=== PATIENT | female | born 1955 | race Caucasian/White ===

== ENCOUNTER 2017-12-23 18:44 | Emergency (ER) | payer BC ==
[~2017-12-23] VITALS: Ht 157.5 cm; Wt 77.1 kg
[2017-12-23 19:14] VITALS: BP 213/90
[2017-12-23] MEDS ORDERED: ONDANSETRON ODT 4 MG TAB.RAPDIS. PO ONE (19:15)
[2017-12-23] MEDS ORDERED: ONDA4TAB12 PO (20:39)
--- NOTE | 2017-12-23 20:40 | PHYS DOC ---
Past Medical History Past Medical History: Bipolar, Hypertension Past Surgical History: Other Additional Past Surgical Histo: left shoulder Alcohol Use: None Drug Use: None Adult General Chief Complaint Chief Complaint: UPPER EXTREMITY INJURY HPI HPI Patient is a 62 year old female who presents to the emergency room with complaints of right elbow pain. She states that she fell 9 days ago and was diagnosed with a fracture of the right elbow. She had a posterior long-arm splint in place however her removed it last night because of her hand swelling. Patient denies any new injury, states she would like the splint to be replaced. Pt complains of continuous nausea since this morning, denies abdominal pain, states that she vomited 4x earlier today. Review of Systems Review of Systems Constitutional: Denies fever or chills [] Giabd: reports nausea with vomiting x4 today, denies abdominal pain Musculoskeletal: R elbow pain with swelling in hand Integument: Denies rash or skin lesions [] Neurologic: Denies headache, focal weakness or sensory changes [] All other systems were reviewed and found to be within normal limits, except as documented in this note. Current Medications Current Medications Current Medications Medications (Trade) Dose Ordered Sig/Wilder Start Time Stop Time Status Last Admin Dose Admin Ondansetron HCl (Zofran Odt) 4 mg 1X ONCE 12/23/17 19:15 12/23/17 19:16 DC 12/23/17 19:15 4 MG Allergies Allergies Allergies Coded Allergies Type Severity Reaction Last Updated Verified No Known Drug Allergies 12/23/17 No Physical Exam Physical Exam Constitutional: Well developed, well nourished, no acute distress, non-toxic appearance. [] HENT: Normocephalic, atraumatic, bilateral external ears normal, oropharynx moist, no oral exudates, nose normal. [] Eyes: conjunctiva normal, no discharge. [] Skin: Warm, dry, no erythema, no rash. [] Extremities: No cyanosis, no clubbing, ROM intact, R elbow tenderness to palpation, pt bends R elbow with no problem, 1+ swelling to R elbow Neurologic: Alert and oriented X 3, normal motor function, normal sensory function, no focal deficits noted. [] Psychologic: Affect normal, judgement normal, mood normal. [] Current Patient Data Vital Signs Vital Signs Date Time Temp Pulse Resp B/P (MAP) Pulse Ox O2 Delivery O2 Flow Rate FiO2 10/11/18 19:14 97.1 86 22 213/90 (131) 97 Room Air 97.1 EKG EKG [] Radiology/Procedures Radiology/Procedures X-ray reveals fracture of right proximal radius, read by Dr. Munroe[] Course & Med Decision Making Course & Med Decision Making Pertinent Labs and Imaging studies reviewed. (See chart for details) Dx: fracture of right proximal radius Posterior long arm splint was applied to right arm, the placed in a sling. Pt was given a zofran in the ER, drank several glasses of water and sprite in the department with no vomiting. Prescription written for zofran. Follow up with Dr. David for further evaluation and treatment of your fracture. Tylenol or ibuprofen as needed for pain. Return to the ER if your symptoms worsen. Patient verbalized an understanding of home care, medications, follow-up, and return to ED instructions and was in agreement with the plan of care. [] Dragon Disclaimer Dragon Disclaimer This electronic medical record was generated, in whole or in part, using a voice recognition dictation system. Departure Departure Impression: Primary Impression: Fracture, radius, proximal Additional Impression: Nausea & vomiting Disposition: 01 HOME, SELF-CARE Condition: STABLE Referrals: JAYLA HERNANDEZ (PCP) Patient Instructions: Elbow Fracture, Simple Additional Instructions: Tylenol or ibuprofen as needed for pain. Fill prescription(s) and use as directed for nausea. Recommend application of ice, elevation, and rest of affected extremity. Wear the splint that was placed until follow up appointment with Dr. David, call in the morning for an appointment. Return to the ER if your symptoms worsen. Scripts Ondansetron (ONDANSETRON ODT) 4 Mg Tab.rapdis 1 TAB PO PRN Q6-8HRS, #16 TAB 0 Refills Prov: GERARD YAÑEZ Jacki LACER AND TIER 12/23/17 Splinting Splinting : Location: right arm Hand-Made Type: fiberglass Splint: posterior long arm Pre-Proc Neuro Vasc Exam: normal Post-Proc Neuro Vasc Exam: normal, unchanged from pre-exam Progress pt tolerated procedure well Attending Co-Sign Attending Co-Sign The patient was not seen by me. The [facility] chart was reviewed. I agree with the plan of care. Problem Qualifiers Primary Impression: Fracture, radius, proximal Encounter type: initial encounter Fracture type: closed Fracture morphology : unspecified fracture morphology Laterality: right Qualified Codes: S52.101A - Unspecified fracture of upper end of right radius, initial encounter for closed fracture Additional Impression: Nausea & vomiting Vomiting type: unspecified Vomiting Intractability: non-intractable Qualified Codes: R11.2 - Nausea with vomiting, unspecified GERARD YAÑEZ APRN Dec 23, 2017 20:40 ELAINE MUNROE MD Dec 25, 2017 14:56
--- NOTE | 2017-12-24 04:09 | RAD ---
Right elbow 3 views: Reason for examination: Mechanical fall today. Fell 9 days ago diagnosed with the fracture. There appears to be fracture of the radial head. No other site of fracture or dislocation is seen. No abnormal periosteal reaction is seen. There is joint effusion seen. IMPRESSION: Radial head fracture and joint effusion. Chest AP portable at 2343: The heart size is normal. Mediastinum is unremarkable. Lung kim show some mild prominence of the interstitial markings bilaterally. This may be related to positioning. No consolidative infiltrates or pleural effusions are evident. IMPRESSION: Mild prominence of the interstitial markings with no consolidated infiltrates or pleural effusions evident. This may be related to positioning. Recommend clinical correlation and follow-up. Electronically signed by: Ashly Moffett MD (12/24/2017 4:06 AM) [facility]
[2017-12-24] MEDS ORDERED: METO50TA6 PO (13:13)
[2017-12-24] MEDS ORDERED: CHOL500016 PO (13:13)
[2017-12-24] MEDS ORDERED: OXYC5CAP PO (13:13)
[2017-12-24] MEDS ORDERED: OMEG1CAP6 PO (13:13)
[2017-12-24] MEDS ORDERED: IBUP-1007 PO (13:13)
[2017-12-24] MEDS ORDERED: ZOLP5TAB5 PO (13:13)
[2017-12-24] MEDS ORDERED: CLON0.1T PO (13:13)
[2017-12-24] MEDS ORDERED: CLON0.5T11 PO (13:13)
[2017-12-24] MEDS ORDERED: POLY255P PO (13:13)
[2017-12-24] MEDS ORDERED: DULO30CA2 PO (13:13)
[2017-12-24] MEDS ORDERED: FLUT16SP NS (13:13)
[2017-12-24] MEDS ORDERED: ACET325T9 PO (13:13)
[2017-12-24] MEDS ORDERED: PROM25TA10 PO (13:13)
== END 2017-12-23 20:49 | disposition home or self-care (01) ==
LOC: ER 18:44
DX: S52.121A Displaced fracture of head of right radius, initial encounter for closed fracture (principal); R11.2 Nausea with vomiting, unspecified; F31.9 Bipolar disorder, unspecified; I10 Essential (primary) hypertension; W18.39XA Other fall on same level, initial encounter; Y93.89 Activity, other specified; Y92.89 Other specified places as the place of occurrence of the external cause; Y99.8 Other external cause status
CPT/HCPCS: 99284; Q0162; 29105; 73080

== ENCOUNTER 2017-12-23 23:06 | Inpatient (IN) | payer BC ==
[~2017-12-23] VITALS: Ht 167.6 cm; Wt 79.4 kg
[~2017-12-23 23:06] MED LIST: ONDA4TAB12 PO
--- NOTE | 2017-12-23 23:17 | PHYS DOC ---
Past Medical History Past Medical History: Bipolar, Hypertension Past Surgical History: Other Additional Past Surgical Histo: left shoulder Alcohol Use: None Drug Use: None Adult General Chief Complaint Chief Complaint: SEIZURE HPI HPI Patient is a 62 year old female who presents with seizure Patient was seen her earlier at [facility] for splint application to her right elbow. She had taken off her splint voluntarily and wanted in replaced. She has a right elbow fracture post fall 9 days ago. After splint application and discharge, while waiting in the lobby she had a seizure. She was brought back to room 1 for further evaluation. She is currently postictal. Review of Systems Review of Systems Patient non verbal unable to provide ROS Constitutional: Denies fever or chills [] Eyes: Denies change in visual acuity, redness, or eye pain [] HENT: Denies nasal congestion or sore throat [] Respiratory: Denies cough or shortness of breath [] Cardiovascular: No additional information not addressed in HPI [] GI: Denies abdominal pain, nausea, vomiting, bloody stools or diarrhea [] : Denies dysuria or hematuria [] Musculoskeletal: Denies back pain or joint pain [] Integument: Denies rash or skin lesions [] Neurologic: Denies headache, focal weakness or sensory changes [] Endocrine: Denies polyuria or polydipsia [] All other systems were reviewed and found to be within normal limits, except as documented in this note. Current Medications Current Medications Current Medications Medications (Trade) Dose Ordered Sig/Wilder Start Time Stop Time Status Last Admin Dose Admin Levetiracetam 1000 mg/Dextrose 110 ml @ 440 mls/hr 1X ONCE 12/23/17 23:45 12/23/17 23:59 DC 12/23/17 23:45 440 MLS/HR Lorazepam (Ativan) 1 mg 1X ONCE 12/23/17 23:45 12/23/17 23:46 DC 12/23/17 23:45 1 MG Potassium Chloride/Sodium Chloride 1,000 ml @ 75 mls/hr 1X ONCE 12/24/17 01:00 12/24/17 14:19 DC 12/24/17 01:00 75 MLS/HR Sodium Chloride 500 ml @ 50 mls/hr 1X ONCE 12/24/17 00:30 12/24/17 10:29 UNV Allergies Allergies Allergies Coded Allergies Type Severity Reaction Last Updated Verified No Known Drug Allergies 12/23/17 No Physical Exam Physical Exam Constitutional: Well developed, well nourished, nonverbal, postictal, non-toxic appearance. With sonorous breathing HENT: Normocephalic, atraumatic, bilateral external ears normal, oropharynx moist, no oral exudates, nose normal. Eyes: PERRLA, with conjugate gaze, conjunctiva normal, no discharge. Neck: Normal range of motion, no tenderness, supple, no stridor. Cardiovascular:Heart rate regular rhythm, no murmur Lungs & Thorax: Bilateral breath sounds clear to auscultation Abdomen: Bowel sounds normal, soft, no tenderness, no masses, no pulsatile masses. Skin: Warm, dry, no erythema, no rash. Back: No ecchymosis, deformity or swelling appreciated. Extremities: No tenderness, no cyanosis, no clubbing, ROM intact, no edema. Neurologic: Somnolent, moves all extremities, no focal deficits noted. No facial droop. Current Patient Data Vital Signs Vital Signs Date Time Temp Pulse Resp B/P (MAP) Pulse Ox O2 Delivery O2 Flow Rate FiO2 12/24/17 01:05 86 17 94 12/23/17 23:06 97.7 236/102 (146) Room Air 97.7 Lab Values Laboratory Tests Test 12/23/17 23:10 12/23/17 23:27 12/23/17 23:30 12/24/17 01:00 Glucose (Fingerstick) 168 mg/dL (70-99) H Urine Collection Type U cath Urine Color Yellow Urine Clarity Clear Urine pH 6.5 Urine Specific [place] 1.020 Urine Protein >=300 mg/dL (NEG-TRACE) Urine Glucose (UA) 100 mg/dL (NEG) Urine Ketones (Stick) >=80 mg/dL (NEG) Urine Blood Large (NEG) Urine Nitrite Negative (NEG) Urine Bilirubin Negative (NEG) Urine Urobilinogen Dipstick 0.2 mg/dL (0.2 mg/dL) Urine Leukocyte Esterase Negative (NEG) Urine RBC 6-10 /HPF (0-2) Urine WBC 1-4 /HPF (0-4) Urine Squamous Epithelial Cells Few /LPF Urine Bacteria 0 /HPF (0-FEW) Urine Opiates Screen Pos (NEG) Urine Methadone Screen Neg (NEG) Urine Barbiturates Neg (NEG) Urine Phencyclidine Screen Neg (NEG) Urine Amphetamine/Methamphetamine Neg (NEG) Urine Benzodiazepines Screen Neg (NEG) Urine Cocaine Screen Neg (NEG) Urine Cannabinoids Screen Neg (NEG) Urine Ethyl Alcohol Neg (NEG) White Blood Count 19.9 x10^3/uL (4.0-11.0) H Red Blood Count 5.07 x10^6/uL (3.50-5.40) Hemoglobin 15.5 g/dL (12.0-15.5) Hematocrit 43.3 % (36.0-47.0) Mean Corpuscular Volume 85 fL (79-100) Mean Corpuscular Hemoglobin 31 pg (25-35) Mean Corpuscular Hemoglobin Concent 36 g/dL (31-37) Red Cell Distribution Width 12.8 % (11.5-14.5) Platelet Count 463 x10^3/uL (140-400) H Neutrophils (%) (Auto) 79 % (31-73) H Lymphocytes (%) (Auto) 12 % (24-48) L Monocytes (%) (Auto) 8 % (0-9) Eosinophils (%) (Auto) 0 % (0-3) Basophils (%) (Auto) 0 % (0-3) Neutrophils # (Auto) 15.7 x10^3uL (1.8-7.7) H Lymphocytes # (Auto) 2.5 x10^3/uL (1.0-4.8) Monocytes # (Auto) 1.7 x10^3/uL (0.0-1.1) H Eosinophils # (Auto) 0.0 x10^3/uL (0.0-0.7) Basophils # (Auto) 0.1 x10^3/uL (0.0-0.2) Segmented Neutrophils % 81 % (35-66) H Lymphocytes % 9 % (24-48) L Monocytes % 10 % (0-10) Platelet Estimate Increased (ADEQUATE) Sodium Level 108 mmol/L (136-145) *L Potassium Level 2.6 mmol/L (3.5-5.1) *L Chloride Level 69 mmol/L (98-107) L Carbon Dioxide Level 21 mmol/L (21-32) Anion Gap 18 (6-14) H Blood Urea Nitrogen 7 mg/dL (7-20) Creatinine 1.0 mg/dL (0.6-1.0) Estimated GFR (Cockcroft-Gault) 55.8 BUN/Creatinine Ratio 7 (6-20) Glucose Level 164 mg/dL (70-99) H Calcium Level 8.8 mg/dL (8.5-10.1) Total Bilirubin 1.2 mg/dL (0.2-1.0) H Aspartate Amino Transferase (AST) 98 U/L (15-37) H Alanine Aminotransferase (ALT) 80 U/L (14-59) H Alkaline Phosphatase 152 U/L (46-116) H Creatine Kinase 2797 U/L (26-192) H Troponin I Quantitative < 0.017 ng/mL (0.000-0.055) Total Protein 7.7 g/dL (6.4-8.2) Albumin 4.1 g/dL (3.4-5.0) Albumin/Globulin Ratio 1.1 (1.0-1.7) Salicylates Level < 2.8 mg/dL (2.8-20.0) L Salicylate Last Dose Date Unknown Salicylate Last Dose Time Unknown Acetaminophen Level < 2 mcg/ml (10-30) L Acetaminophen Last Dose Date Unknown Acetaminophen Last Dose Time Unknown Gila Level 1.1 mmol/L (0.6-1.2) Gila Last Dose Date 12/23/17 Gila Last Dose Time 0000 Ethyl Alcohol Level < 10 mg/dL (0-10) Thyroid Stimulating Hormone (TSH) 1.571 uIU/mL (0.358-3.74) Cortisol AM Sample 70.0 ug/dL (4.3-22.4) H Laboratory Tests 12/23/17 23:30 Laboratory Tests 12/23/17 23:30 EKG EKG ECG 23:50 NSR @ [address]-T wave changes suggestive of ischemia. Radiology/Procedures Radiology/Procedures [facility] [address] [place], [place] [id number] IMAGING REPORT Signed PATIENT: NIKITA WHEELER ACCOUNT: [id number] : 1955 LOCATION: [facility] ICU AGE: 62 SEX: F EXAM STATUS: ADM IN ORD. PHYSICIAN: ELAINE QUINN MD REASON: seizure PROCEDURE: CHEST AP ONLY Right elbow 3 views: Reason for examination: Mechanical fall today. Fell 9 days ago diagnosed with the fracture. There appears to be fracture of the radial head. No other site of fracture or dislocation is seen. No abnormal periosteal reaction is seen. There is joint effusion seen. IMPRESSION: Radial head fracture and joint effusion. Chest AP portable at 2343: The heart size is normal. Mediastinum is unremarkable. Lung kim show some mild prominence of the interstitial markings bilaterally. This may be related to positioning. No consolidative infiltrates or pleural effusions are evident. IMPRESSION: Mild prominence of the interstitial markings with no consolidated infiltrates or pleural effusions evident. This may be related to positioning. Recommend clinical correlation and follow-up. Electronically signed by: Sarwat Elizalde MD (12/24/2017 4:06 AM) [facility] [place] [place] DICTATED and SIGNED BY: SARWAT ELIZALDE MD DATE: 12/24/17 0402 [facility] [address] [place] [address] IMAGING REPORT Signed PATIENT: NIKITA WHEELER ACCOUNT: [id number] : 1955 LOCATION: ER AGE: 62 SEX: F EXAM STATUS: REG ER ORD. PHYSICIAN: ELAINE QUINN MD REASON: seizure PROCEDURE: CT HEAD WO CONTRAST CT head without contrast: Reason for examination: Seizures. Unresponsive. Axial images were obtained through the brain. No contrast was administered. Exposure: One or more of the following individualized dose reduction techniques were utilized for this examination: 1. Automated exposure control 2. Adjustment of the mA and/or kV according to patient size 3. Use of iterative reconstruction technique. Ventricular systems are symmetric and not abnormally dilated. No midline shift is seen. There is no evidence of intracranial hemorrhage, infarct, mass or edema. No abnormalities are seen at the orbits. The paranasal sinuses show no mucosal disease. Mastoid air cells are clear. No acute abnormality seen in the skull. IMPRESSION: No acute intracranial abnormalities evident. Electronically signed by: Sarwat Elizalde MD (12/24/2017 12:37 AM) [facility] [place] DICTATED and SIGNED BY: SARWAT ELIZALDE MD DATE: 12/24/17 0035 Course & Med Decision Making Course & Med Decision Making Pertinent Labs and Imaging studies reviewed. (See chart for details) Emergency Department Course Patient presents with seizure, hyponatremia DDx-Seizure, intoxication, CVA, metabolic derangement, infection, syncope, SIADH , Diabetes insipidus, psychohenic polydipsia The patient had witness seizure in the ED lobby. Patient had been seen by PA and had replacement right elbow splint applied. As per nursing staff the patient was drinking copious amount of water and was anxious appearing prior to seizure. Patient was brought to room 1 postictal and had recurrent seizure witness by me. Patient had immediate left EJ IV access placed and was given Ativan 2mg by me with seizure abating. Patient was given Keppra 1000mg IV load, noting 2 witnessed seizures in the ED. Head CT henry was unremarkable. ECG and troponin showed no evidence of ACS. Labs remarkable for severe hyponatremia with hypokalemia. Lab was repeated and verified hyponatremia and hypokalemia. Patient was started on hypertonic saline and potassium replacement. 01:[address] Christianson who agreed with admission. Dragon Disclaimer Dragon Disclaimer This electronic medical record was generated, in whole or in part, using a voice recognition dictation system. Additional Procedures Progress 23:00 Left EJ placement Site prepped with chlorhexidine. Left IJ was cannulated with a 20-gauge IV cannula without any difficulty. Patient over the procedure well. Labs were drawn. IV therapy was started. 03:00 Right EJ Placement Prepped with chlorhexidine Right EJ cannulated with a 20-gauge IV without difficulty blood cultures are drawn lactic acid was drawn. Departure Departure Impression: Primary Impression: Seizure Additional Impressions: Hyponatremia Hypokalemia Rhabdomyolysis Disposition: ADMITTED INPATIENT Admitting Physician: Kenyon Harrell Condition: STABLE Referrals: JAYLA HERNANDEZ (PCP) Critical Care Note Total Time (mins): 60 Comments Critical care time spent on bed side management of recurrent seizures and correction of hyponatremia and hypokalemia. Problems: (1) Hypokalemia (2) Hyponatremia (3) Rhabdomyolysis (4) Seizure Critical Care Time Critical care time was 60 minutes exclusive of procedures. Problem Qualifiers ELAINE QUINN MD Dec 23, 2017 23:17
[2017-12-23] MEDS ORDERED: levETIRAcetam 1,000 MG in IV DEXTROSE 5% 100ML 100 ML IV ONE (23:45)
[2017-12-23 23:49] LABS: BILIRUBIN,URINE NEGATIVE (NEG); CLARITY,URINE CLEAR; COLOR,URINE YELLOW; NITRITE,URINE NEGATIVE (NEG); PH,URINE 6.5; PROTEIN,URINE >=300 mg/dL (NEG-TRACE); UROBILINOGEN,URINE 0.2 mg/dL (0.2 mg/dL)
[2017-12-23 23:53] LABS: BASO # 0.1 x10^3/uL (0.0-0.2); BASO % 0 % (0-3); EOS % 0 % (0-3); HEMATOCRIT 43.3 % (36.0-47.0); HEMOGLOBIN 15.5 g/dL (12.0-15.5); LYMPH # 2.5 x10^3/uL (1.0-4.8); LYMPH % 12 % (24-48); MEAN CORPUSCULAR HEMOGLOBIN 31 pg (25-35); MEAN CORPUSCULAR HGB CONC 36 g/dL (31-37); MEAN CORPUSCULAR VOLUME 85 fL (79-100); MONO # 1.7 x10^3/uL (0.0-1.1); MONO % 8 % (0-9); NEUT # 15.7 x10^3uL (1.8-7.7); NEUT % 79 % (31-73); PLATELET COUNT 463 x10^3/uL (140-400); RED BLOOD COUNT 5.07 x10^6/uL (3.50-5.40); RED CELL DISTRIBUTION WIDTH 12.8 % (11.5-14.5); WHITE BLOOD COUNT 19.9 x10^3/uL (4.0-11.0)
[2017-12-23 23:56] LABS: AMPHETAMINE/METHAMPHETAMINE NEG (NEG); BARBITURATES NEG (NEG); BENZODIAZEPINES NEG (NEG); CANNABINOIDS NEG (NEG); COCAINE NEG (NEG); METHADONE NEG (NEG); OPIATES POS (NEG); PHENCYCLIDINE NEG (NEG)
[2017-12-24] VITALS (21 sets, daily range): BP systolic 99–142; BP diastolic 42–86
[2017-12-24 00:09] LABS: BACTERIA,URINE 0 /HPF (0-FEW); SQUAMOUS EPITHELIAL CELL,UR FEW /LPF
[2017-12-24 00:12] LABS: ALBUMIN 4.1 g/dL (3.4-5.0); ALBUMIN/GLOBULIN RATIO 1.1 (1.0-1.7); CALCIUM 8.8 mg/dL (8.5-10.1); GFR 55.8; TOTAL BILIRUBIN 1.2 mg/dL (0.2-1.0); TOTAL PROTEIN 7.7 g/dL (6.4-8.2)
[2017-12-24 00:18] LABS: SALIC < 2.8 mg/dL (2.8-20.0)
[2017-12-24 00:19] LABS: ACETAMIN < 2 mcg/ml (10-30); ETHANOL < 10 mg/dL (0-10)
[2017-12-24 00:21] LABS: POTASSIUM 2.6 mmol/L (3.5-5.1)
[2017-12-24] MEDS ORDERED: SODIUM CHLORIDE 3 % 500 ML IV STA (00:21)
[2017-12-24] MEDS ORDERED: SODIUM CHLORIDE 3 % 500 ML IV ONE ×4 (00:30→04:00)
--- NOTE | 2017-12-24 00:40 | RAD ---
CT head without contrast: Reason for examination: Seizures. Unresponsive. Axial images were obtained through the brain. No contrast was administered. Exposure: One or more of the following individualized dose reduction techniques were utilized for this examination: 1. Automated exposure control 2. Adjustment of the mA and/or kV according to patient size 3. Use of iterative reconstruction technique. Ventricular systems are symmetric and not abnormally dilated. No midline shift is seen. There is no evidence of intracranial hemorrhage, infarct, mass or edema. No abnormalities are seen at the orbits. The paranasal sinuses show no mucosal disease. Mastoid air cells are clear. No acute abnormality seen in the skull. IMPRESSION: No acute intracranial abnormalities evident. Electronically signed by: Ashly Moffett MD (12/24/2017 12:37 AM) [facility]
[2017-12-24] MEDS ORDERED: POTASSIUM CL 40MEQ IN 0.9%NACL 1,000 ML IV ONE (01:00)
[2017-12-24 03:19] LABS: CREATININE ISTAT 0.5 mg/dL (0.5-1.4); HEMOGLOBIN ISTAT 12.9 g/dL (12-15); ION CA ISTAT 1.02 mmol/L (1.13-1.32); POTASSIUM ISTAT 3.1 mmol/L (3.5-5.0)
[2017-12-24 03:19] LABS: CALCIUM 8.5 mg/dL (8.5-10.1); CREATININE 0.4 mg/dL (0.6-1.0); GFR 160.7
[2017-12-24 03:27] LABS: POTASSIUM 2.8 mmol/L (3.5-5.1)
--- NOTE | 2017-12-24 04:09 | RAD ---
Right elbow 3 views: Reason for examination: Mechanical fall today. Fell 9 days ago diagnosed with the fracture. There appears to be fracture of the radial head. No other site of fracture or dislocation is seen. No abnormal periosteal reaction is seen. There is joint effusion seen. IMPRESSION: Radial head fracture and joint effusion. Chest AP portable at 2343: The heart size is normal. Mediastinum is unremarkable. Lung kim show some mild prominence of the interstitial markings bilaterally. This may be related to positioning. No consolidative infiltrates or pleural effusions are evident. IMPRESSION: Mild prominence of the interstitial markings with no consolidated infiltrates or pleural effusions evident. This may be related to positioning. Recommend clinical correlation and follow-up. Electronically signed by: Ashly Moffett MD (12/24/2017 4:06 AM) [facility]
[2017-12-24 05:33] LABS: % LYMPHS 9 % (24-48); % MONOS 10 % (0-10); % SEGS 81 % (35-66); PLT ESTIMATE INCREASED (ADEQUATE)
[2017-12-24 06:37] LABS: LI 1.1 mmol/L (0.6-1.2)
--- NOTE | 2017-12-24 08:20 | EKG ---
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
[2017-12-24 09:24] LABS: BASO % 0 % (0-3); EOS % 0 % (0-3); HEMATOCRIT 38.3 % (36.0-47.0); HEMOGLOBIN 13.6 g/dL (12.0-15.5); LYMPH # 0.7 x10^3/uL (1.0-4.8); LYMPH % 5 % (24-48); MEAN CORPUSCULAR HEMOGLOBIN 30 pg (25-35); MEAN CORPUSCULAR HGB CONC 36 g/dL (31-37); MEAN CORPUSCULAR VOLUME 85 fL (79-100); MONO # 1.4 x10^3/uL (0.0-1.1); MONO % 10 % (0-9); NEUT # 12.1 x10^3uL (1.8-7.7); NEUT % 85 % (31-73); PLATELET COUNT 307 x10^3/uL (140-400); RED CELL DISTRIBUTION WIDTH 12.9 % (11.5-14.5); WHITE BLOOD COUNT 14.3 x10^3/uL (4.0-11.0)
[2017-12-24 09:36] LABS: CALCIUM 8.5 mg/dL (8.5-10.1); CREATININE 0.5 mg/dL (0.6-1.0); GFR 124.2; POTASSIUM 3.1 mmol/L (3.5-5.1)
[2017-12-24 09:40] LABS: MAGNESIUM 1.9 mg/dL (1.8-2.4); PHOSPHORUS 2.6 mg/dL (2.6-4.7)
[2017-12-24] MEDS ORDERED: ONDANSETRON ODT 4 MG TAB.RAPDIS. PO PRN (09:45)
[2017-12-24] MEDS ORDERED: ACETAMINOPHEN 500 MG TABLET PO PRN (09:45)
--- NOTE | 2017-12-24 10:11 | PDOC2 ---
NEUROLOGY CONSULT Date of Admission Date of Admission DATE: 12/24/17 TIME: 10:06 Reason for Consult Reason for Consult: Seizure Referring Physician Referring Physician: Dr. Gonzales Source Source: Chart review, Patient History of Present Illness History of Present Illness The patient is a 62-year-old right-handed female who was in the emergency room yesterday to get her right elbow fracture reset. She left and had a seizure in the waiting area. She wass found to have severe hyponatremia. 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 She does have psychiatric disorder. She denies any prior history of stroke, seizure, or head injury. Past Medical History Cardiovascular: HTN Psych: Bipolar Past Surgical History Past Surgical History: Other (Left shoulder) Family History Family History: No pertinent hx ( negative for seizures) Social History Social History , no alcohol or tobacco Current Medications Current Medications Current Medications Lorazepam (Ativan) 2 mg STK-MED ONCE .ROUTE ; Start 12/23/17 at 23:16; Stop at 23:17; Status DC Lorazepam (Ativan) 1 mg 1X ONCE IV Last administered on 12/23/17at 23:45; Start 12/23/17 at 23:45; Stop 12/23/17 at 23:46; Status DC Levetiracetam 1000 mg/Dextrose 110 ml @ 440 mls/hr 1X ONCE IV Last administered on 12/23/17at 23:45; Start 12/23/17 at 23:45; Stop 12/23/17 at 23 :59; Status DC Sodium Chloride 500 ml @ 30 mls/hr 1X ONCE IV Last administered on at 01:00; Start 12/24/17 at 01:00; Stop 12/24/17 at 17:39 Sodium Chloride 500 ml @ 30 mls/hr 1X STAT IV ; Start 12/24/17 at 00:21; Stop 12/24/17 at 17:00; Status UNV Sodium Chloride 500 ml @ 50 mls/hr 1X ONCE IV ; Start 12/24/17 at 00:30; Stop 12/24/17 at 10:29; Status UNV Potassium Chloride/Sodium Chloride 1,000 ml @ 75 mls/hr 1X ONCE IV Last administered on 12/24/17at 01:00; Start 12/24/17 at 01:00; Stop 12/24/17 at 14 :19 Sodium Chloride 500 ml @ 30 mls/hr 1X ONCE IV Last administered on at 04:00; Start 12/24/17 at 04:00; Stop 12/24/17 at 20:39 Sodium Chloride 500 ml @ 50 mls/hr 1X ONCE IV ; Start 12/24/17 at 03:45; Stop 12/24/17 at 13:44; Status UNV Acetaminophen (Tylenol) 500 mg PRN Q6HRS PRN PO MILD PAIN / TEMP; Start at 09:45 Ondansetron HCl (Zofran) 4 mg PRN Q6HRS PRN IV NAUSEA/VOMITING; Start at 09:45 Ondansetron HCl (Zofran Odt) 4 mg PRN Q6HRS PRN PO NAUSEA/VOMITING; Start 03/01 at 09:45 Lorazepam (Ativan) 2 mg PRN Q4HRS PRN IV sz; Start 12/24/17 at 09:45 Active Scripts Active Ondansetron Odt (Ondansetron) 4 Mg Tab.rapdis 1 Tab PO PRN Q6-8HRS Allergies Allergies: Coded Allergies: No Known Drug Allergies (Unverified , 12/23/17) ROS Review of System Negative for fevers, chills, weight loss, shortness of breath, chest pain, indigestion, hematochezia, melena, dysuria. Full 14-point review systems is negative. Physical Exam Physical Examination General: Well-developed, well-nourished, White female, in no acute distress HEENT: Normocephalic andatraumatic. Temporal arteriespulsatile and nontender. Neck: Supple without bruit, no meningismus Musculoskeletal: Stability:see neurologic. Gait exam:see neurologic. Tone:see neurologic. Strength:see neurologic. Neurological: Mental Status:intact, orientation, memory, attention span/concentration, language, fund of knowledge: she is Carlos, arouses easily, knows location, season, year. Cranial Nerves:Pupils equal and reactive to light, extraocular movements areintact, visual kim are full to confrontation. Facial sensation is normal. There is no facial asymmetry. Vestibulo-ocular reflex is intact. Palate elvates and tongue protrudes in midline. All other cranial related problems are negative except as mentioned before.Reflexes:2+ and symmetric with flexor plantar responses. Motor:left shoulder sling, right elbow cast, 5/ 5 otherwise. Coordination:Finger-nose finger and [id number] testing are normal. Rapid alternating movements and fine finger movements are intact. Gait: not tested. Sensory:Normal pinprick, vibration, light touch, proprioception. Vitals VITALS Vital Signs Date Time Temp Pulse Resp B/P (MAP) Pulse Ox O2 Delivery O2 Flow Rate FiO2 12/24/17 08:00 Nasal Cannula 4.0 12/24/17 08:00 97.5 74 20 109/49 (69) 97 97.5 Labs Labs Laboratory Tests Test 12/23/17 23:10 12/23/17 23:27 12/23/17 23:30 12/24/17 01:00 Glucose (Fingerstick) 168 mg/dL (70-99) Urine Collection Type U cath Urine Color Yellow Urine Clarity Clear Urine pH 6.5 Urine Specific Romance 1.020 Urine Protein >=300 mg/dL (NEG-TRACE) Urine Glucose (UA) 100 mg/dL (NEG) Urine Ketones (Stick) >=80 mg/dL (NEG) Urine Blood Large (NEG) Urine Nitrite Negative (NEG) Urine Bilirubin Negative (NEG) Urine Urobilinogen Dipstick 0.2 mg/dL (0.2 mg/dL) Urine Leukocyte Esterase Negative (NEG) Urine RBC 6-10 /HPF (0-2) Urine WBC 1-4 /HPF (0-4) Urine Squamous Epithelial Cells Few /LPF Urine Bacteria 0 /HPF (0-FEW) Urine Opiates Screen Pos (NEG) Urine Methadone Screen Neg (NEG) Urine Barbiturates Neg (NEG) Urine Phencyclidine Screen Neg (NEG) Urine Amphetamine/Methamphetamine Neg (NEG) Urine Benzodiazepines Screen Neg (NEG) Urine Cocaine Screen Neg (NEG) Urine Cannabinoids Screen Neg (NEG) Urine Ethyl Alcohol Neg (NEG) White Blood Count 19.9 x10^3/uL (4.0-11.0) Red Blood Count 5.07 x10^6/uL (3.50-5.40) Hemoglobin 15.5 g/dL (12.0-15.5) Hematocrit 43.3 % (36.0-47.0) Mean Corpuscular Volume 85 fL (79-100) Mean Corpuscular Hemoglobin 31 pg (25-35) Mean Corpuscular Hemoglobin Concent 36 g/dL (31-37) Red Cell Distribution Width 12.8 % (11.5-14.5) Platelet Count 463 x10^3/uL (140-400) Neutrophils (%) (Auto) 79 % (31-73) Lymphocytes (%) (Auto) 12 % (24-48) Monocytes (%) (Auto) 8 % (0-9) Eosinophils (%) (Auto) 0 % (0-3) Basophils (%) (Auto) 0 % (0-3) Neutrophils # (Auto) 15.7 x10^3uL (1.8-7.7) Lymphocytes # (Auto) 2.5 x10^3/uL (1.0-4.8) Monocytes # (Auto) 1.7 x10^3/uL (0.0-1.1) Eosinophils # (Auto) 0.0 x10^3/uL (0.0-0.7) Basophils # (Auto) 0.1 x10^3/uL (0.0-0.2) Segmented Neutrophils % 81 % (35-66) Lymphocytes % 9 % (24-48) Monocytes % 10 % (0-10) Platelet Estimate Increased (ADEQUATE) Sodium Level 108 mmol/L (136-145) Potassium Level 2.6 mmol/L (3.5-5.1) Chloride Level 69 mmol/L (98-107) Carbon Dioxide Level 21 mmol/L (21-32) Anion Gap 18 (6-14) Blood Urea Nitrogen 7 mg/dL (7-20) Creatinine 1.0 mg/dL (0.6-1.0) Estimated GFR (Cockcroft-Gault) 55.8 BUN/Creatinine Ratio 7 (6-20) Glucose Level 164 mg/dL (70-99) Calcium Level 8.8 mg/dL (8.5-10.1) Total Bilirubin 1.2 mg/dL (0.2-1.0) Aspartate Amino Transf (AST/SGOT) 98 U/L (15-37) Alanine Aminotransferase (ALT/SGPT) 80 U/L (14-59) Alkaline Phosphatase 152 U/L (46-116) Creatine Kinase 2797 U/L (26-192) Troponin I Quantitative < 0.017 ng/mL (0.000-0.055) Total Protein 7.7 g/dL (6.4-8.2) Albumin 4.1 g/dL (3.4-5.0) Albumin/Globulin Ratio 1.1 (1.0-1.7) Salicylates Level < 2.8 mg/dL (2.8-20.0) Salicylate Last Dose Date Unknown Salicylate Last Dose Time Unknown Acetaminophen Level < 2 mcg/ml (10-30) Acetaminophen Last Dose Date Unknown Acetaminophen Last Dose Time Unknown Buxton Level 1.1 mmol/L (0.6-1.2) Buxton Last Dose Date 12/23/17 Buxton Last Dose Time 0000 Ethyl Alcohol Level < 10 mg/dL (0-10) Thyroid Stimulating Hormone (TSH) 1.571 uIU/mL (0.358-3.74) Cortisol AM Sample 70.0 ug/dL (4.3-22.4) Test 12/24/17 01:30 12/24/17 03:10 12/24/17 03:14 12/24/17 09:10 Sodium Level 104 mmol/L (136-145) 124 mmol/L (136-145) Potassium Level 2.8 mmol/L (3.5-5.1) 3.1 mmol/L (3.5-5.1) Chloride Level 72 mmol/L (98-107) 87 mmol/L (98-107) Carbon Dioxide Level 20 mmol/L (21-32) 28 mmol/L (21-32) Anion Gap 12 (6-14) 15 mmol/L (6-14) 9 (6-14) Blood Urea Nitrogen 7 mg/dL (7-20) 5 mg/dL (7-20) Creatinine 0.4 mg/dL (0.6-1.0) 0.5 mg/dL (0.6-1.0) Estimated GFR (Cockcroft-Gault) 160.7 124.2 Glucose Level 167 mg/dL (70-99) 127 mg/dL (70-99) 102 mg/dL (70-99) Calcium Level 8.5 mg/dL (8.5-10.1) 8.5 mg/dL (8.5-10.1) Lactic Acid Level 0.9 mmol/L (0.4-2.0) Bedside Hemoglobin 12.9 g/dL (12-15) Bedside Hematocrit 38 % (36-40) Bedside Sodium 107 mmol/L (135-145) Bedside Potassium 3.1 mmol/L (3.5-5.0) Bedside Chloride 69 mmol/L (98-110) Bedside Total CO2 27 mmol/L (23-32) Bedside Blood Urea Nitrogen 5 mg/dL (8-26) Bedside Creatinine 0.5 mg/dL (0.5-1.4) Bedside Ionized Calcium (Santos) 1.02 mmol/L (1.13-1.32) White Blood Count 14.3 x10^3/uL (4.0-11.0) Red Blood Count 4.50 x10^6/uL (3.50-5.40) Hemoglobin 13.6 g/dL (12.0-15.5) Hematocrit 38.3 % (36.0-47.0) Mean Corpuscular Volume 85 fL (79-100) Mean Corpuscular Hemoglobin 30 pg (25-35) Mean Corpuscular Hemoglobin Concent 36 g/dL (31-37) Red Cell Distribution Width 12.9 % (11.5-14.5) Platelet Count 307 x10^3/uL (140-400) Neutrophils (%) (Auto) 85 % (31-73) Lymphocytes (%) (Auto) 5 % (24-48) Monocytes (%) (Auto) 10 % (0-9) Eosinophils (%) (Auto) 0 % (0-3) Basophils (%) (Auto) 0 % (0-3) Neutrophils # (Auto) 12.1 x10^3uL (1.8-7.7) Lymphocytes # (Auto) 0.7 x10^3/uL (1.0-4.8) Monocytes # (Auto) 1.4 x10^3/uL (0.0-1.1) Eosinophils # (Auto) 0.0 x10^3/uL (0.0-0.7) Basophils # (Auto) 0.0 x10^3/uL (0.0-0.2) Phosphorus Level 2.6 mg/dL (2.6-4.7) Magnesium Level 1.9 mg/dL (1.8-2.4) Laboratory Tests Test 12/23/17 23:10 12/23/17 23:27 12/23/17 23:30 12/24/17 01:00 Glucose (Fingerstick) 168 mg/dL (70-99) Urine Collection Type U cath Urine Color Yellow Urine Clarity Clear Urine pH 6.5 Urine Specific Romance 1.020 Urine Protein >=300 mg/dL (NEG-TRACE) Urine Glucose (UA) 100 mg/dL (NEG) Urine Ketones (Stick) >=80 mg/dL (NEG) Urine Blood Large (NEG) Urine Nitrite Negative (NEG) Urine Bilirubin Negative (NEG) Urine Urobilinogen Dipstick 0.2 mg/dL (0.2 mg/dL) Urine Leukocyte Esterase Negative (NEG) Urine RBC 6-10 /HPF (0-2) Urine WBC 1-4 /HPF (0-4) Urine Squamous Epithelial Cells Few /LPF Urine Bacteria 0 /HPF (0-FEW) Urine Opiates Screen Pos (NEG) Urine Methadone Screen Neg (NEG) Urine Barbiturates Neg (NEG) Urine Phencyclidine Screen Neg (NEG) Urine Amphetamine/Methamphetamine Neg (NEG) Urine Benzodiazepines Screen Neg (NEG) Urine Cocaine Screen Neg (NEG) Urine Cannabinoids Screen Neg (NEG) Urine Ethyl Alcohol Neg (NEG) White Blood Count 19.9 x10^3/uL (4.0-11.0) Red Blood Count 5.07 x10^6/uL (3.50-5.40) Hemoglobin 15.5 g/dL (12.0-15.5) Hematocrit 43.3 % (36.0-47.0) Mean Corpuscular Volume 85 fL (79-100) Mean Corpuscular Hemoglobin 31 pg (25-35) Mean Corpuscular Hemoglobin Concent 36 g/dL (31-37) Red Cell Distribution Width 12.8 % (11.5-14.5) Platelet Count 463 x10^3/uL (140-400) Neutrophils (%) (Auto) 79 % (31-73) Lymphocytes (%) (Auto) 12 % (24-48) Monocytes (%) (Auto) 8 % (0-9) Eosinophils (%) (Auto) 0 % (0-3) Basophils (%) (Auto) 0 % (0-3) Neutrophils # (Auto) 15.7 x10^3uL (1.8-7.7) Lymphocytes # (Auto) 2.5 x10^3/uL (1.0-4.8) Monocytes # (Auto) 1.7 x10^3/uL (0.0-1.1) Eosinophils # (Auto) 0.0 x10^3/uL (0.0-0.7) Basophils # (Auto) 0.1 x10^3/uL (0.0-0.2) Segmented Neutrophils % 81 % (35-66) Lymphocytes % 9 % (24-48) Monocytes % 10 % (0-10) Platelet Estimate Increased (ADEQUATE) Sodium Level 108 mmol/L (136-145) Potassium Level 2.6 mmol/L (3.5-5.1) Chloride Level 69 mmol/L (98-107) Carbon Dioxide Level 21 mmol/L (21-32) Anion Gap 18 (6-14) Blood Urea Nitrogen 7 mg/dL (7-20) Creatinine 1.0 mg/dL (0.6-1.0) Estimated GFR (Cockcroft-Gault) 55.8 BUN/Creatinine Ratio 7 (6-20) Glucose Level 164 mg/dL (70-99) Calcium Level 8.8 mg/dL (8.5-10.1) Total Bilirubin 1.2 mg/dL (0.2-1.0) Aspartate Amino Transf (AST/SGOT) 98 U/L (15-37) Alanine Aminotransferase (ALT/SGPT) 80 U/L (14-59) Alkaline Phosphatase 152 U/L (46-116) Creatine Kinase 2797 U/L (26-192) Troponin I Quantitative < 0.017 ng/mL (0.000-0.055) Total Protein 7.7 g/dL (6.4-8.2) Albumin 4.1 g/dL (3.4-5.0) Albumin/Globulin Ratio 1.1 (1.0-1.7) Salicylates Level < 2.8 mg/dL (2.8-20.0) Salicylate Last Dose Date Unknown Salicylate Last Dose Time Unknown Acetaminophen Level < 2 mcg/ml (10-30) Acetaminophen Last Dose Date Unknown Acetaminophen Last Dose Time Unknown Buxton Level 1.1 mmol/L (0.6-1.2) Buxton Last Dose Date 12/23/17 Buxton Last Dose Time 0000 Ethyl Alcohol Level < 10 mg/dL (0-10) Thyroid Stimulating Hormone (TSH) 1.571 uIU/mL (0.358-3.74) Cortisol AM Sample 70.0 ug/dL (4.3-22.4) Test 12/24/17 01:30 12/24/17 03:10 12/24/17 03:14 12/24/17 09:10 Sodium Level 104 mmol/L (136-145) 124 mmol/L (136-145) Potassium Level 2.8 mmol/L (3.5-5.1) 3.1 mmol/L (3.5-5.1) Chloride Level 72 mmol/L (98-107) 87 mmol/L (98-107) Carbon Dioxide Level 20 mmol/L (21-32) 28 mmol/L (21-32) Anion Gap 12 (6-14) 15 mmol/L (6-14) 9 (6-14) Blood Urea Nitrogen 7 mg/dL (7-20) 5 mg/dL (7-20) Creatinine 0.4 mg/dL (0.6-1.0) 0.5 mg/dL (0.6-1.0) Estimated GFR (Cockcroft-Gault) 160.7 124.2 Glucose Level 167 mg/dL (70-99) 127 mg/dL (70-99) 102 mg/dL (70-99) Calcium Level 8.5 mg/dL (8.5-10.1) 8.5 mg/dL (8.5-10.1) Lactic Acid Level 0.9 mmol/L (0.4-2.0) Bedside Hemoglobin 12.9 g/dL (12-15) Bedside Hematocrit 38 % (36-40) Bedside Sodium 107 mmol/L (135-145) Bedside Potassium 3.1 mmol/L (3.5-5.0) Bedside Chloride 69 mmol/L (98-110) Bedside Total CO2 27 mmol/L (23-32) Bedside Blood Urea Nitrogen 5 mg/dL (8-26) Bedside Creatinine 0.5 mg/dL (0.5-1.4) Bedside Ionized Calcium (Santos) 1.02 mmol/L (1.13-1.32) White Blood Count 14.3 x10^3/uL (4.0-11.0) Red Blood Count 4.50 x10^6/uL (3.50-5.40) Hemoglobin 13.6 g/dL (12.0-15.5) Hematocrit 38.3 % (36.0-47.0) Mean Corpuscular Volume 85 fL (79-100) Mean Corpuscular Hemoglobin 30 pg (25-35) Mean Corpuscular Hemoglobin Concent 36 g/dL (31-37) Red Cell Distribution Width 12.9 % (11.5-14.5) Platelet Count 307 x10^3/uL (140-400) Neutrophils (%) (Auto) 85 % (31-73) Lymphocytes (%) (Auto) 5 % (24-48) Monocytes (%) (Auto) 10 % (0-9) Eosinophils (%) (Auto) 0 % (0-3) Basophils (%) (Auto) 0 % (0-3) Neutrophils # (Auto) 12.1 x10^3uL (1.8-7.7) Lymphocytes # (Auto) 0.7 x10^3/uL (1.0-4.8) Monocytes # (Auto) 1.4 x10^3/uL (0.0-1.1) Eosinophils # (Auto) 0.0 x10^3/uL (0.0-0.7) Basophils # (Auto) 0.0 x10^3/uL (0.0-0.2) Phosphorus Level 2.6 mg/dL (2.6-4.7) Magnesium Level 1.9 mg/dL (1.8-2.4) Images Images CT head: Ventricular systems are symmetric and not abnormally dilated. No midline shift is seen. There is no evidence of intracranial hemorrhage, infarct, mass or edema. No abnormalities are seen at the orbits. The paranasal sinuses show no mucosal disease. Mastoid air cells are clear. No acute abnormality seen in the skull. IMPRESSION: No acute intracranial abnormalities evident. Assessment/Plan Assessment/Plan Impression: Seizure due to severe hyponatremia. Recommendations: I am holding on additional workup such as MRI and EEG given obvious provocative factor of the hyponatremia. I am also holding off on anticonvulsants. Renal service is managing the hyponatremia. I counseled the patient not to drink large amounts of water. Thank you for letting me help the patient's care. JONAH MACIEL MD Dec 24, 2017 10:11
--- NOTE | 2017-12-24 11:18 | PDOC2 ---
CONSULT Date of Consult Date of Consult DATE: 12/24/17 TIME: 11:13 Reason for Consult Reason for Consult: LOW NA Referring Physician Referring Physician: ESTEPHANIE Identification/Chief Complaint Chief Complaint SEIZURE Source Source: Chart review History of Present Illness Reason for Visit: THIS IS A 62 YR WITH FALL, ELBOW FX AND THEN RECENTLY A SEIZURE. NA OF 104 ON ADMIT AND NOW UP TO 124 WITH 3% SALINE. PT REMAINS CONFUSED. K LOW AT 3.1. PER NOTES PT HAS HX OF PSYCHOGENIC POLYDIPSIA. NOT ON ANY DIURETICS. HEMODYNAMICALLY STABLE. NO THYROID HX Past Medical History Cardiovascular: HTN Psych: Bipolar Past Surgical History Past Surgical History: Other (Left shoulder) Current Problem List Problem List Problems Medical Problems: (1) Hypokalemia Status: Acute (2) Hyponatremia Status: Acute (3) Rhabdomyolysis Status: Acute (4) Seizure Status: Acute Current Medications Current Medications Current Medications Lorazepam (Ativan) 2 mg STK-MED ONCE .ROUTE ; Start 12/23/17 at 23:16; Stop at 23:17; Status DC Lorazepam (Ativan) 1 mg 1X ONCE IV Last administered on 12/23/17at 23:45; Start 12/23/17 at 23:45; Stop 12/23/17 at 23:46; Status DC Levetiracetam 1000 mg/Dextrose 110 ml @ 440 mls/hr 1X ONCE IV Last administered on 12/23/17at 23:45; Start 12/23/17 at 23:45; Stop 12/23/17 at 23 :59; Status DC Sodium Chloride 500 ml @ 30 mls/hr 1X ONCE IV Last administered on at 01:00; Start 12/24/17 at 01:00; Stop 12/24/17 at 17:39 Sodium Chloride 500 ml @ 30 mls/hr 1X STAT IV ; Start 12/24/17 at 00:21; Stop 12/24/17 at 17:00; Status UNV Sodium Chloride 500 ml @ 50 mls/hr 1X ONCE IV ; Start 12/24/17 at 00:30; Stop 12/24/17 at 10:29; Status UNV Potassium Chloride/Sodium Chloride 1,000 ml @ 75 mls/hr 1X ONCE IV Last administered on 12/24/17at 01:00; Start 12/24/17 at 01:00; Stop 12/24/17 at 14 :19 Sodium Chloride 500 ml @ 30 mls/hr 1X ONCE IV Last administered on at 04:00; Start 12/24/17 at 04:00; Stop 12/24/17 at 20:39 Sodium Chloride 500 ml @ 50 mls/hr 1X ONCE IV ; Start 12/24/17 at 03:45; Stop 12/24/17 at 13:44; Status UNV Acetaminophen (Tylenol) 500 mg PRN Q6HRS PRN PO MILD PAIN / TEMP; Start at 09:45 Ondansetron HCl (Zofran) 4 mg PRN Q6HRS PRN IV NAUSEA/VOMITING; Start at 09:45 Ondansetron HCl (Zofran Odt) 4 mg PRN Q6HRS PRN PO NAUSEA/VOMITING; Start 03/01 at 09:45 Lorazepam (Ativan) 2 mg PRN Q4HRS PRN IV sz; Start 12/24/17 at 09:45 Active Scripts Active Ondansetron Odt (Ondansetron) 4 Mg Tab.rapdis 1 Tab PO PRN Q6-8HRS Allergies Allergies: Coded Allergies: No Known Drug Allergies (Unverified , 12/23/17) ROS Review of System UNABLE TO OBTAIN Physical Exam General: Cooperative, No acute distress HEENT: Atraumatic, PERRLA Lungs: Clear to auscultation Heart: Regular rate, Normal S1, Normal S2 Abdomen: Normal bowel sounds, Soft, No tenderness Extremities: No clubbing, No cyanosis, No edema, Normal pulses Skin: No rashes, No breakdown Neuro: Other (CONFUSED) Psych/Mental Status: Other (CONFUSED) MUSCULOSKELETAL: No joint tenderness, No deformity Vitals VITALS Vital Signs Date Time Temp Pulse Resp B/P (MAP) Pulse Ox O2 Delivery O2 Flow Rate FiO2 12/24/17 10:00 75 20 109/57 (74) 95 Room Air 12/24/17 08:00 4.0 12/24/17 08:00 97.5 97.5 Labs Labs Laboratory Tests Test 12/23/17 23:10 12/23/17 23:27 12/23/17 23:30 12/24/17 01:00 Glucose (Fingerstick) 168 mg/dL (70-99) Urine Collection Type U cath Urine Color Yellow Urine Clarity Clear Urine pH 6.5 Urine Specific [place] 1.020 Urine Protein >=300 mg/dL (NEG-TRACE) Urine Glucose (UA) 100 mg/dL (NEG) Urine Ketones (Stick) >=80 mg/dL (NEG) Urine Blood Large (NEG) Urine Nitrite Negative (NEG) Urine Bilirubin Negative (NEG) Urine Urobilinogen Dipstick 0.2 mg/dL (0.2 mg/dL) Urine Leukocyte Esterase Negative (NEG) Urine RBC 6-10 /HPF (0-2) Urine WBC 1-4 /HPF (0-4) Urine Squamous Epithelial Cells Few /LPF Urine Bacteria 0 /HPF (0-FEW) Urine Opiates Screen Pos (NEG) Urine Methadone Screen Neg (NEG) Urine Barbiturates Neg (NEG) Urine Phencyclidine Screen Neg (NEG) Urine Amphetamine/Methamphetamine Neg (NEG) Urine Benzodiazepines Screen Neg (NEG) Urine Cocaine Screen Neg (NEG) Urine Cannabinoids Screen Neg (NEG) Urine Ethyl Alcohol Neg (NEG) White Blood Count 19.9 x10^3/uL (4.0-11.0) Red Blood Count 5.07 x10^6/uL (3.50-5.40) Hemoglobin 15.5 g/dL (12.0-15.5) Hematocrit 43.3 % (36.0-47.0) Mean Corpuscular Volume 85 fL (79-100) Mean Corpuscular Hemoglobin 31 pg (25-35) Mean Corpuscular Hemoglobin Concent 36 g/dL (31-37) Red Cell Distribution Width 12.8 % (11.5-14.5) Platelet Count 463 x10^3/uL (140-400) Neutrophils (%) (Auto) 79 % (31-73) Lymphocytes (%) (Auto) 12 % (24-48) Monocytes (%) (Auto) 8 % (0-9) Eosinophils (%) (Auto) 0 % (0-3) Basophils (%) (Auto) 0 % (0-3) Neutrophils # (Auto) 15.7 x10^3uL (1.8-7.7) Lymphocytes # (Auto) 2.5 x10^3/uL (1.0-4.8) Monocytes # (Auto) 1.7 x10^3/uL (0.0-1.1) Eosinophils # (Auto) 0.0 x10^3/uL (0.0-0.7) Basophils # (Auto) 0.1 x10^3/uL (0.0-0.2) Segmented Neutrophils % 81 % (35-66) Lymphocytes % 9 % (24-48) Monocytes % 10 % (0-10) Platelet Estimate Increased (ADEQUATE) Sodium Level 108 mmol/L (136-145) Potassium Level 2.6 mmol/L (3.5-5.1) Chloride Level 69 mmol/L (98-107) Carbon Dioxide Level 21 mmol/L (21-32) Anion Gap 18 (6-14) Blood Urea Nitrogen 7 mg/dL (7-20) Creatinine 1.0 mg/dL (0.6-1.0) Estimated GFR (Cockcroft-Gault) 55.8 BUN/Creatinine Ratio 7 (6-20) Glucose Level 164 mg/dL (70-99) Calcium Level 8.8 mg/dL (8.5-10.1) Total Bilirubin 1.2 mg/dL (0.2-1.0) Aspartate Amino Transf (AST/SGOT) 98 U/L (15-37) Alanine Aminotransferase (ALT/SGPT) 80 U/L (14-59) Alkaline Phosphatase 152 U/L (46-116) Creatine Kinase 2797 U/L (26-192) Troponin I Quantitative < 0.017 ng/mL (0.000-0.055) Total Protein 7.7 g/dL (6.4-8.2) Albumin 4.1 g/dL (3.4-5.0) Albumin/Globulin Ratio 1.1 (1.0-1.7) Salicylates Level < 2.8 mg/dL (2.8-20.0) Salicylate Last Dose Date Unknown Salicylate Last Dose Time Unknown Acetaminophen Level < 2 mcg/ml (10-30) Acetaminophen Last Dose Date Unknown Acetaminophen Last Dose Time Unknown [place] Level 1.1 mmol/L (0.6-1.2) [place] Last Dose Date 12/23/17 [place] Last Dose Time 0000 Ethyl Alcohol Level < 10 mg/dL (0-10) Thyroid Stimulating Hormone (TSH) 1.571 uIU/mL (0.358-3.74) Cortisol AM Sample 70.0 ug/dL (4.3-22.4) Test 12/24/17 01:30 12/24/17 03:10 12/24/17 03:14 12/24/17 09:10 Sodium Level 104 mmol/L (136-145) 124 mmol/L (136-145) Potassium Level 2.8 mmol/L (3.5-5.1) 3.1 mmol/L (3.5-5.1) Chloride Level 72 mmol/L (98-107) 87 mmol/L (98-107) Carbon Dioxide Level 20 mmol/L (21-32) 28 mmol/L (21-32) Anion Gap 12 (6-14) 15 mmol/L (6-14) 9 (6-14) Blood Urea Nitrogen 7 mg/dL (7-20) 5 mg/dL (7-20) Creatinine 0.4 mg/dL (0.6-1.0) 0.5 mg/dL (0.6-1.0) Estimated GFR (Cockcroft-Gault) 160.7 124.2 Glucose Level 167 mg/dL (70-99) 127 mg/dL (70-99) 102 mg/dL (70-99) Calcium Level 8.5 mg/dL (8.5-10.1) 8.5 mg/dL (8.5-10.1) Lactic Acid Level 0.9 mmol/L (0.4-2.0) Bedside Hemoglobin 12.9 g/dL (12-15) Bedside Hematocrit 38 % (36-40) Bedside Sodium 107 mmol/L (135-145) Bedside Potassium 3.1 mmol/L (3.5-5.0) Bedside Chloride 69 mmol/L (98-110) Bedside Total CO2 27 mmol/L (23-32) Bedside Blood Urea Nitrogen 5 mg/dL (8-26) Bedside Creatinine 0.5 mg/dL (0.5-1.4) Bedside Ionized Calcium (Santos) 1.02 mmol/L (1.13-1.32) White Blood Count 14.3 x10^3/uL (4.0-11.0) Red Blood Count 4.50 x10^6/uL (3.50-5.40) Hemoglobin 13.6 g/dL (12.0-15.5) Hematocrit 38.3 % (36.0-47.0) Mean Corpuscular Volume 85 fL (79-100) Mean Corpuscular Hemoglobin 30 pg (25-35) Mean Corpuscular Hemoglobin Concent 36 g/dL (31-37) Red Cell Distribution Width 12.9 % (11.5-14.5) Platelet Count 307 x10^3/uL (140-400) Neutrophils (%) (Auto) 85 % (31-73) Lymphocytes (%) (Auto) 5 % (24-48) Monocytes (%) (Auto) 10 % (0-9) Eosinophils (%) (Auto) 0 % (0-3) Basophils (%) (Auto) 0 % (0-3) Neutrophils # (Auto) 12.1 x10^3uL (1.8-7.7) Lymphocytes # (Auto) 0.7 x10^3/uL (1.0-4.8) Monocytes # (Auto) 1.4 x10^3/uL (0.0-1.1) Eosinophils # (Auto) 0.0 x10^3/uL (0.0-0.7) Basophils # (Auto) 0.0 x10^3/uL (0.0-0.2) Phosphorus Level 2.6 mg/dL (2.6-4.7) Magnesium Level 1.9 mg/dL (1.8-2.4) Laboratory Tests Test 12/23/17 23:10 12/23/17 23:27 12/23/17 23:30 12/24/17 01:00 Glucose (Fingerstick) 168 mg/dL (70-99) Urine Collection Type U cath Urine Color Yellow Urine Clarity Clear Urine pH 6.5 Urine Specific [place] 1.020 Urine Protein >=300 mg/dL (NEG-TRACE) Urine Glucose (UA) 100 mg/dL (NEG) Urine Ketones (Stick) >=80 mg/dL (NEG) Urine Blood Large (NEG) Urine Nitrite Negative (NEG) Urine Bilirubin Negative (NEG) Urine Urobilinogen Dipstick 0.2 mg/dL (0.2 mg/dL) Urine Leukocyte Esterase Negative (NEG) Urine RBC 6-10 /HPF (0-2) Urine WBC 1-4 /HPF (0-4) Urine Squamous Epithelial Cells Few /LPF Urine Bacteria 0 /HPF (0-FEW) Urine Opiates Screen Pos (NEG) Urine Methadone Screen Neg (NEG) Urine Barbiturates Neg (NEG) Urine Phencyclidine Screen Neg (NEG) Urine Amphetamine/Methamphetamine Neg (NEG) Urine Benzodiazepines Screen Neg (NEG) Urine Cocaine Screen Neg (NEG) Urine Cannabinoids Screen Neg (NEG) Urine Ethyl Alcohol Neg (NEG) White Blood Count 19.9 x10^3/uL (4.0-11.0) Red Blood Count 5.07 x10^6/uL (3.50-5.40) Hemoglobin 15.5 g/dL (12.0-15.5) Hematocrit 43.3 % (36.0-47.0) Mean Corpuscular Volume 85 fL (79-100) Mean Corpuscular Hemoglobin 31 pg (25-35) Mean Corpuscular Hemoglobin Concent 36 g/dL (31-37) Red Cell Distribution Width 12.8 % (11.5-14.5) Platelet Count 463 x10^3/uL (140-400) Neutrophils (%) (Auto) 79 % (31-73) Lymphocytes (%) (Auto) 12 % (24-48) Monocytes (%) (Auto) 8 % (0-9) Eosinophils (%) (Auto) 0 % (0-3) Basophils (%) (Auto) 0 % (0-3) Neutrophils # (Auto) 15.7 x10^3uL (1.8-7.7) Lymphocytes # (Auto) 2.5 x10^3/uL (1.0-4.8) Monocytes # (Auto) 1.7 x10^3/uL (0.0-1.1) Eosinophils # (Auto) 0.0 x10^3/uL (0.0-0.7) Basophils # (Auto) 0.1 x10^3/uL (0.0-0.2) Segmented Neutrophils % 81 % (35-66) Lymphocytes % 9 % (24-48) Monocytes % 10 % (0-10) Platelet Estimate Increased (ADEQUATE) Sodium Level 108 mmol/L (136-145) Potassium Level 2.6 mmol/L (3.5-5.1) Chloride Level 69 mmol/L (98-107) Carbon Dioxide Level 21 mmol/L (21-32) Anion Gap 18 (6-14) Blood Urea Nitrogen 7 mg/dL (7-20) Creatinine 1.0 mg/dL (0.6-1.0) Estimated GFR (Cockcroft-Gault) 55.8 BUN/Creatinine Ratio 7 (6-20) Glucose Level 164 mg/dL (70-99) Calcium Level 8.8 mg/dL (8.5-10.1) Total Bilirubin 1.2 mg/dL (0.2-1.0) Aspartate Amino Transf (AST/SGOT) 98 U/L (15-37) Alanine Aminotransferase (ALT/SGPT) 80 U/L (14-59) Alkaline Phosphatase 152 U/L (46-116) Creatine Kinase 2797 U/L (26-192) Troponin I Quantitative < 0.017 ng/mL (0.000-0.055) Total Protein 7.7 g/dL (6.4-8.2) Albumin 4.1 g/dL (3.4-5.0) Albumin/Globulin Ratio 1.1 (1.0-1.7) Salicylates Level < 2.8 mg/dL (2.8-20.0) Salicylate Last Dose Date Unknown Salicylate Last Dose Time Unknown Acetaminophen Level < 2 mcg/ml (10-30) Acetaminophen Last Dose Date Unknown Acetaminophen Last Dose Time Unknown [place] Level 1.1 mmol/L (0.6-1.2) [place] Last Dose Date 12/23/17 [place] Last Dose Time 0000 Ethyl Alcohol Level < 10 mg/dL (0-10) Thyroid Stimulating Hormone (TSH) 1.571 uIU/mL (0.358-3.74) Cortisol AM Sample 70.0 ug/dL (4.3-22.4) Test 12/24/17 01:30 12/24/17 03:10 12/24/17 03:14 12/24/17 09:10 Sodium Level 104 mmol/L (136-145) 124 mmol/L (136-145) Potassium Level 2.8 mmol/L (3.5-5.1) 3.1 mmol/L (3.5-5.1) Chloride Level 72 mmol/L (98-107) 87 mmol/L (98-107) Carbon Dioxide Level 20 mmol/L (21-32) 28 mmol/L (21-32) Anion Gap 12 (6-14) 15 mmol/L (6-14) 9 (6-14) Blood Urea Nitrogen 7 mg/dL (7-20) 5 mg/dL (7-20) Creatinine 0.4 mg/dL (0.6-1.0) 0.5 mg/dL (0.6-1.0) Estimated GFR (Cockcroft-Gault) 160.7 124.2 Glucose Level 167 mg/dL (70-99) 127 mg/dL (70-99) 102 mg/dL (70-99) Calcium Level 8.5 mg/dL (8.5-10.1) 8.5 mg/dL (8.5-10.1) Lactic Acid Level 0.9 mmol/L (0.4-2.0) Bedside Hemoglobin 12.9 g/dL (12-15) Bedside Hematocrit 38 % (36-40) Bedside Sodium 107 mmol/L (135-145) Bedside Potassium 3.1 mmol/L (3.5-5.0) Bedside Chloride 69 mmol/L (98-110) Bedside Total CO2 27 mmol/L (23-32) Bedside Blood Urea Nitrogen 5 mg/dL (8-26) Bedside Creatinine 0.5 mg/dL (0.5-1.4) Bedside Ionized Calcium ([place]antos) 1.02 mmol/L (1.13-1.32) White Blood Count 14.3 x10^3/uL (4.0-11.0) Red Blood Count 4.50 x10^6/uL (3.50-5.40) Hemoglobin 13.6 g/dL (12.0-15.5) Hematocrit 38.3 % (36.0-47.0) Mean Corpuscular Volume 85 fL (79-100) Mean Corpuscular Hemoglobin 30 pg (25-35) Mean Corpuscular Hemoglobin Concent 36 g/dL (31-37) Red Cell Distribution Width 12.9 % (11.5-14.5) Platelet Count 307 x10^3/uL (140-400) Neutrophils (%) (Auto) 85 % (31-73) Lymphocytes (%) (Auto) 5 % (24-48) Monocytes (%) (Auto) 10 % (0-9) Eosinophils (%) (Auto) 0 % (0-3) Basophils (%) (Auto) 0 % (0-3) Neutrophils # (Auto) 12.1 x10^3uL (1.8-7.7) Lymphocytes # (Auto) 0.7 x10^3/uL (1.0-4.8) Monocytes # (Auto) 1.4 x10^3/uL (0.0-1.1) Eosinophils # (Auto) 0.0 x10^3/uL (0.0-0.7) Basophils # (Auto) 0.0 x10^3/uL (0.0-0.2) Phosphorus Level 2.6 mg/dL (2.6-4.7) Magnesium Level 1.9 mg/dL (1.8-2.4) Assessment/Plan Assessment/Plan IMP SEVERE HYPONATREMIA SEIZURES PSYCHOGENIC POLYDYPSIA HYPOKALEMIA PLAN CONT SALINE CHECK URINE LYTES STOP 3% SALINE REPLACE K CONCERN OF CENTRAL PONTINE DEMYELINATION WILL FOLLOW LOTTIE RIOJAS MD Dec 24, 2017 11:18
--- NOTE | 2017-12-24 12:02 | PDOC1 ---
History and Physical Date of Admission Date of Admission DATE: 12/24/17 TIME: 11:48 Identification/Chief Complaint Chief Complaint Seizure at the emergency room waiting/holding area Source Source: Caregiver, Chart review, Patient History of Present Illness History of Present Illness 52-year-old female who was earlier seen at the emergency room yesterday for a follow-up of the right elbow fracture. She was discharging home when She had a witnessed seizure at the ER, described as GTC with LOC. Patient felt exhausted and had a headache afterwards. Admitted to ICU after loaded with Geovanna, seen by neurology. She also has a right elbow fracture as mentioned above, undergoing splinting by ER physician, and mentions to me a left shoulder issue, being followed up with orthopedics in an outside facility. She is still confused. But of note critical hyponatremia at 104 on admission, has admitted to ICU with renal on board status post hypertonic saline 1 and Na jumped to 124. There is a concern of central pontine myelosis, potassium mildly low at 3.1 with normal creatinine. Potassium is much better than on admission was 2.8. Leukocytosis most likely reactive which is better 14 now from 19 on admission. TSH and cortisol or normal. Did not eat because nothing by mouth on file because of the confusion. But she is awake though still slightly off in terms of mentation. No family at bedside. I am comfortable starting some liquid diet then to advance as tolerated once mentation further improves. Reports just in - as per RN, just came out of the psych facility 2 days ago as inpatient psych for some history of PTSD possible schiz and bipolar? Some home meds include clonazepam, pain medicine etc. and other meds. We'll hold off clonazepam, may start Cymbalta tomorrow if mentation is much better but otherwise the rest of the meds she can continue Okay to transfer to 6 floor Past Medical History Cardiovascular: HTN Psych: Bipolar Past Surgical History Past Surgical History: Other (Left shoulder) Family History Family History: Family History Unknown Social History Smoke: No ALCOHOL: none Drugs: None Current Problem List Problem List Problems Medical Problems: (1) Hypokalemia Status: Acute (2) Hyponatremia Status: Acute (3) Rhabdomyolysis Status: Acute (4) Seizure Status: Acute Current Medications Current Medications Current Medications Lorazepam (Ativan) 2 mg STK-MED ONCE .ROUTE ; Start 12/23/17 at 23:16; Stop at 23:17; Status DC Lorazepam (Ativan) 1 mg 1X ONCE IV Last administered on 12/23/17at 23:45; Start 12/23/17 at 23:45; Stop 12/23/17 at 23:46; Status DC Levetiracetam 1000 mg/Dextrose 110 ml @ 440 mls/hr 1X ONCE IV Last administered on 12/23/17at 23:45; Start 12/23/17 at 23:45; Stop 12/23/17 at 23 :59; Status DC Sodium Chloride 500 ml @ 30 mls/hr 1X ONCE IV Last administered on at 01:00; Start 12/24/17 at 01:00; Stop 12/24/17 at 17:39 Sodium Chloride 500 ml @ 30 mls/hr 1X STAT IV ; Start 12/24/17 at 00:21; Stop 12/24/17 at 17:00; Status UNV Sodium Chloride 500 ml @ 50 mls/hr 1X ONCE IV ; Start 12/24/17 at 00:30; Stop 12/24/17 at 10:29; Status UNV Potassium Chloride/Sodium Chloride 1,000 ml @ 75 mls/hr 1X ONCE IV Last administered on 12/24/17at 01:00; Start 12/24/17 at 01:00; Stop 12/24/17 at 14 :19 Sodium Chloride 500 ml @ 30 mls/hr 1X ONCE IV Last administered on at 04:00; Start 12/24/17 at 04:00; Stop 12/24/17 at 20:39 Sodium Chloride 500 ml @ 50 mls/hr 1X ONCE IV ; Start 12/24/17 at 03:45; Stop 12/24/17 at 13:44; Status UNV Acetaminophen (Tylenol) 500 mg PRN Q6HRS PRN PO MILD PAIN / TEMP; Start at 09:45 Ondansetron HCl (Zofran) 4 mg PRN Q6HRS PRN IV NAUSEA/VOMITING; Start at 09:45 Ondansetron HCl (Zofran Odt) 4 mg PRN Q6HRS PRN PO NAUSEA/VOMITING; Start 03/01 at 09:45 Lorazepam (Ativan) 2 mg PRN Q4HRS PRN IV sz; Start 12/24/17 at 09:45 Potassium Chloride 30 meq/ Sodium Chloride 1,015 ml @ 75 mls/hr 1X ONCE IV ; Start 12/24/17 at 13:00; Stop 12/25/17 at 02:31 Active Scripts Active Ondansetron Odt (Ondansetron) 4 Mg Tab.rapdis 1 Tab PO PRN Q6-8HRS Allergies Allergies: Coded Allergies: No Known Drug Allergies (Unverified , 12/23/17) ROS Review of System limited ROS still confused Physical Exam General: No acute distress HEENT: Atraumatic, PERRLA Lungs: Clear to auscultation, Normal air movement Heart: S1S2, RRR, no gallops, no murmurs Cardiovascular: S1 Breasts: Normal, Rt breast nml w/o mass, Lt breast nml w/o mass, Nipples normal Abdomen: Normal bowel sounds, Soft, No tenderness, No hepatosplenomegaly, No masses Rectal Exam: not examined PELVIC: Nml ext genitalia Extremities: No clubbing, No cyanosis, No edema, Normal pulses, No tenderness/ swelling Skin: No rashes, No breakdown, No significant lesion Neuro: Normal speech, Normal tone, Sensation intact, Cranial nerves 3-12 NL, Reflexes 2+ Vitals Vitals Vital Signs Date Time Temp Pulse Resp B/P (MAP) Pulse Ox O2 Delivery O2 Flow Rate FiO2 12/24/17 11:00 98.0 75 20 107/45 (65) 95 Room Air 98.0 12/24/17 08:00 4.0 Labs Labs Laboratory Tests Test 12/23/17 23:10 12/23/17 23:27 12/23/17 23:30 12/24/17 01:00 Glucose (Fingerstick) 168 mg/dL (70-99) Urine Collection Type U cath Urine Color Yellow Urine Clarity Clear Urine pH 6.5 Urine Specific Surrency 1.020 Urine Protein >=300 mg/dL (NEG-TRACE) Urine Glucose (UA) 100 mg/dL (NEG) Urine Ketones (Stick) >=80 mg/dL (NEG) Urine Blood Large (NEG) Urine Nitrite Negative (NEG) Urine Bilirubin Negative (NEG) Urine Urobilinogen Dipstick 0.2 mg/dL (0.2 mg/dL) Urine Leukocyte Esterase Negative (NEG) Urine RBC 6-10 /HPF (0-2) Urine WBC 1-4 /HPF (0-4) Urine Squamous Epithelial Cells Few /LPF Urine Bacteria 0 /HPF (0-FEW) Urine Opiates Screen Pos (NEG) Urine Methadone Screen Neg (NEG) Urine Barbiturates Neg (NEG) Urine Phencyclidine Screen Neg (NEG) Urine Amphetamine/Methamphetamine Neg (NEG) Urine Benzodiazepines Screen Neg (NEG) Urine Cocaine Screen Neg (NEG) Urine Cannabinoids Screen Neg (NEG) Urine Ethyl Alcohol Neg (NEG) White Blood Count 19.9 x10^3/uL (4.0-11.0) Red Blood Count 5.07 x10^6/uL (3.50-5.40) Hemoglobin 15.5 g/dL (12.0-15.5) Hematocrit 43.3 % (36.0-47.0) Mean Corpuscular Volume 85 fL (79-100) Mean Corpuscular Hemoglobin 31 pg (25-35) Mean Corpuscular Hemoglobin Concent 36 g/dL (31-37) Red Cell Distribution Width 12.8 % (11.5-14.5) Platelet Count 463 x10^3/uL (140-400) Neutrophils (%) (Auto) 79 % (31-73) Lymphocytes (%) (Auto) 12 % (24-48) Monocytes (%) (Auto) 8 % (0-9) Eosinophils (%) (Auto) 0 % (0-3) Basophils (%) (Auto) 0 % (0-3) Neutrophils # (Auto) 15.7 x10^3uL (1.8-7.7) Lymphocytes # (Auto) 2.5 x10^3/uL (1.0-4.8) Monocytes # (Auto) 1.7 x10^3/uL (0.0-1.1) Eosinophils # (Auto) 0.0 x10^3/uL (0.0-0.7) Basophils # (Auto) 0.1 x10^3/uL (0.0-0.2) Segmented Neutrophils % 81 % (35-66) Lymphocytes % 9 % (24-48) Monocytes % 10 % (0-10) Platelet Estimate Increased (ADEQUATE) Sodium Level 108 mmol/L (136-145) Potassium Level 2.6 mmol/L (3.5-5.1) Chloride Level 69 mmol/L (98-107) Carbon Dioxide Level 21 mmol/L (21-32) Anion Gap 18 (6-14) Blood Urea Nitrogen 7 mg/dL (7-20) Creatinine 1.0 mg/dL (0.6-1.0) Estimated GFR (Cockcroft-Gault) 55.8 BUN/Creatinine Ratio 7 (6-20) Glucose Level 164 mg/dL (70-99) Calcium Level 8.8 mg/dL (8.5-10.1) Total Bilirubin 1.2 mg/dL (0.2-1.0) Aspartate Amino Transf (AST/SGOT) 98 U/L (15-37) Alanine Aminotransferase (ALT/SGPT) 80 U/L (14-59) Alkaline Phosphatase 152 U/L (46-116) Creatine Kinase 2797 U/L (26-192) Troponin I Quantitative < 0.017 ng/mL (0.000-0.055) Total Protein 7.7 g/dL (6.4-8.2) Albumin 4.1 g/dL (3.4-5.0) Albumin/Globulin Ratio 1.1 (1.0-1.7) Salicylates Level < 2.8 mg/dL (2.8-20.0) Salicylate Last Dose Date Unknown Salicylate Last Dose Time Unknown Acetaminophen Level < 2 mcg/ml (10-30) Acetaminophen Last Dose Date Unknown Acetaminophen Last Dose Time Unknown Bessie Level 1.1 mmol/L (0.6-1.2) Bessie Last Dose Date 12/23/17 Bessie Last Dose Time 0000 Ethyl Alcohol Level < 10 mg/dL (0-10) Thyroid Stimulating Hormone (TSH) 1.571 uIU/mL (0.358-3.74) Cortisol AM Sample 70.0 ug/dL (4.3-22.4) Test 12/24/17 01:30 12/24/17 03:10 12/24/17 03:14 12/24/17 09:10 Sodium Level 104 mmol/L (136-145) 124 mmol/L (136-145) Potassium Level 2.8 mmol/L (3.5-5.1) 3.1 mmol/L (3.5-5.1) Chloride Level 72 mmol/L (98-107) 87 mmol/L (98-107) Carbon Dioxide Level 20 mmol/L (21-32) 28 mmol/L (21-32) Anion Gap 12 (6-14) 15 mmol/L (6-14) 9 (6-14) Blood Urea Nitrogen 7 mg/dL (7-20) 5 mg/dL (7-20) Creatinine 0.4 mg/dL (0.6-1.0) 0.5 mg/dL (0.6-1.0) Estimated GFR (Cockcroft-Gault) 160.7 124.2 Glucose Level 167 mg/dL (70-99) 127 mg/dL (70-99) 102 mg/dL (70-99) Calcium Level 8.5 mg/dL (8.5-10.1) 8.5 mg/dL (8.5-10.1) Lactic Acid Level 0.9 mmol/L (0.4-2.0) Bedside Hemoglobin 12.9 g/dL (12-15) Bedside Hematocrit 38 % (36-40) Bedside Sodium 107 mmol/L (135-145) Bedside Potassium 3.1 mmol/L (3.5-5.0) Bedside Chloride 69 mmol/L (98-110) Bedside Total CO2 27 mmol/L (23-32) Bedside Blood Urea Nitrogen 5 mg/dL (8-26) Bedside Creatinine 0.5 mg/dL (0.5-1.4) Bedside Ionized Calcium (Santos) 1.02 mmol/L (1.13-1.32) White Blood Count 14.3 x10^3/uL (4.0-11.0) Red Blood Count 4.50 x10^6/uL (3.50-5.40) Hemoglobin 13.6 g/dL (12.0-15.5) Hematocrit 38.3 % (36.0-47.0) Mean Corpuscular Volume 85 fL (79-100) Mean Corpuscular Hemoglobin 30 pg (25-35) Mean Corpuscular Hemoglobin Concent 36 g/dL (31-37) Red Cell Distribution Width 12.9 % (11.5-14.5) Platelet Count 307 x10^3/uL (140-400) Neutrophils (%) (Auto) 85 % (31-73) Lymphocytes (%) (Auto) 5 % (24-48) Monocytes (%) (Auto) 10 % (0-9) Eosinophils (%) (Auto) 0 % (0-3) Basophils (%) (Auto) 0 % (0-3) Neutrophils # (Auto) 12.1 x10^3uL (1.8-7.7) Lymphocytes # (Auto) 0.7 x10^3/uL (1.0-4.8) Monocytes # (Auto) 1.4 x10^3/uL (0.0-1.1) Eosinophils # (Auto) 0.0 x10^3/uL (0.0-0.7) Basophils # (Auto) 0.0 x10^3/uL (0.0-0.2) Phosphorus Level 2.6 mg/dL (2.6-4.7) Magnesium Level 1.9 mg/dL (1.8-2.4) Laboratory Tests Test 12/23/17 23:10 12/23/17 23:27 12/23/17 23:30 12/24/17 01:00 Glucose (Fingerstick) 168 mg/dL (70-99) Urine Collection Type U cath Urine Color Yellow Urine Clarity Clear Urine pH 6.5 Urine Specific Surrency 1.020 Urine Protein >=300 mg/dL (NEG-TRACE) Urine Glucose (UA) 100 mg/dL (NEG) Urine Ketones (Stick) >=80 mg/dL (NEG) Urine Blood Large (NEG) Urine Nitrite Negative (NEG) Urine Bilirubin Negative (NEG) Urine Urobilinogen Dipstick 0.2 mg/dL (0.2 mg/dL) Urine Leukocyte Esterase Negative (NEG) Urine RBC 6-10 /HPF (0-2) Urine WBC 1-4 /HPF (0-4) Urine Squamous Epithelial Cells Few /LPF Urine Bacteria 0 /HPF (0-FEW) Urine Opiates Screen Pos (NEG) Urine Methadone Screen Neg (NEG) Urine Barbiturates Neg (NEG) Urine Phencyclidine Screen Neg (NEG) Urine Amphetamine/Methamphetamine Neg (NEG) Urine Benzodiazepines Screen Neg (NEG) Urine Cocaine Screen Neg (NEG) Urine Cannabinoids Screen Neg (NEG) Urine Ethyl Alcohol Neg (NEG) White Blood Count 19.9 x10^3/uL (4.0-11.0) Red Blood Count 5.07 x10^6/uL (3.50-5.40) Hemoglobin 15.5 g/dL (12.0-15.5) Hematocrit 43.3 % (36.0-47.0) Mean Corpuscular Volume 85 fL (79-100) Mean Corpuscular Hemoglobin 31 pg (25-35) Mean Corpuscular Hemoglobin Concent 36 g/dL (31-37) Red Cell Distribution Width 12.8 % (11.5-14.5) Platelet Count 463 x10^3/uL (140-400) Neutrophils (%) (Auto) 79 % (31-73) Lymphocytes (%) (Auto) 12 % (24-48) Monocytes (%) (Auto) 8 % (0-9) Eosinophils (%) (Auto) 0 % (0-3) Basophils (%) (Auto) 0 % (0-3) Neutrophils # (Auto) 15.7 x10^3uL (1.8-7.7) Lymphocytes # (Auto) 2.5 x10^3/uL (1.0-4.8) Monocytes # (Auto) 1.7 x10^3/uL (0.0-1.1) Eosinophils # (Auto) 0.0 x10^3/uL (0.0-0.7) Basophils # (Auto) 0.1 x10^3/uL (0.0-0.2) Segmented Neutrophils % 81 % (35-66) Lymphocytes % 9 % (24-48) Monocytes % 10 % (0-10) Platelet Estimate Increased (ADEQUATE) Sodium Level 108 mmol/L (136-145) Potassium Level 2.6 mmol/L (3.5-5.1) Chloride Level 69 mmol/L (98-107) Carbon Dioxide Level 21 mmol/L (21-32) Anion Gap 18 (6-14) Blood Urea Nitrogen 7 mg/dL (7-20) Creatinine 1.0 mg/dL (0.6-1.0) Estimated GFR (Cockcroft-Gault) 55.8 BUN/Creatinine Ratio 7 (6-20) Glucose Level 164 mg/dL (70-99) Calcium Level 8.8 mg/dL (8.5-10.1) Total Bilirubin 1.2 mg/dL (0.2-1.0) Aspartate Amino Transf (AST/SGOT) 98 U/L (15-37) Alanine Aminotransferase (ALT/SGPT) 80 U/L (14-59) Alkaline Phosphatase 152 U/L (46-116) Creatine Kinase 2797 U/L (26-192) Troponin I Quantitative < 0.017 ng/mL (0.000-0.055) Total Protein 7.7 g/dL (6.4-8.2) Albumin 4.1 g/dL (3.4-5.0) Albumin/Globulin Ratio 1.1 (1.0-1.7) Salicylates Level < 2.8 mg/dL (2.8-20.0) Salicylate Last Dose Date Unknown Salicylate Last Dose Time Unknown Acetaminophen Level < 2 mcg/ml (10-30) Acetaminophen Last Dose Date Unknown Acetaminophen Last Dose Time Unknown Bessie Level 1.1 mmol/L (0.6-1.2) Bessie Last Dose Date 12/23/17 Bessie Last Dose Time 0000 Ethyl Alcohol Level < 10 mg/dL (0-10) Thyroid Stimulating Hormone (TSH) 1.571 uIU/mL (0.358-3.74) Cortisol AM Sample 70.0 ug/dL (4.3-22.4) Test 12/24/17 01:30 12/24/17 03:10 12/24/17 03:14 12/24/17 09:10 Sodium Level 104 mmol/L (136-145) 124 mmol/L (136-145) Potassium Level 2.8 mmol/L (3.5-5.1) 3.1 mmol/L (3.5-5.1) Chloride Level 72 mmol/L (98-107) 87 mmol/L (98-107) Carbon Dioxide Level 20 mmol/L (21-32) 28 mmol/L (21-32) Anion Gap 12 (6-14) 15 mmol/L (6-14) 9 (6-14) Blood Urea Nitrogen 7 mg/dL (7-20) 5 mg/dL (7-20) Creatinine 0.4 mg/dL (0.6-1.0) 0.5 mg/dL (0.6-1.0) Estimated GFR (Cockcroft-Gault) 160.7 124.2 Glucose Level 167 mg/dL (70-99) 127 mg/dL (70-99) 102 mg/dL (70-99) Calcium Level 8.5 mg/dL (8.5-10.1) 8.5 mg/dL (8.5-10.1) Lactic Acid Level 0.9 mmol/L (0.4-2.0) Bedside Hemoglobin 12.9 g/dL (12-15) Bedside Hematocrit 38 % (36-40) Bedside Sodium 107 mmol/L (135-145) Bedside Potassium 3.1 mmol/L (3.5-5.0) Bedside Chloride 69 mmol/L (98-110) Bedside Total CO2 27 mmol/L (23-32) Bedside Blood Urea Nitrogen 5 mg/dL (8-26) Bedside Creatinine 0.5 mg/dL (0.5-1.4) Bedside Ionized Calcium (Santos) 1.02 mmol/L (1.13-1.32) White Blood Count 14.3 x10^3/uL (4.0-11.0) Red Blood Count 4.50 x10^6/uL (3.50-5.40) Hemoglobin 13.6 g/dL (12.0-15.5) Hematocrit 38.3 % (36.0-47.0) Mean Corpuscular Volume 85 fL (79-100) Mean Corpuscular Hemoglobin 30 pg (25-35) Mean Corpuscular Hemoglobin Concent 36 g/dL (31-37) Red Cell Distribution Width 12.9 % (11.5-14.5) Platelet Count 307 x10^3/uL (140-400) Neutrophils (%) (Auto) 85 % (31-73) Lymphocytes (%) (Auto) 5 % (24-48) Monocytes (%) (Auto) 10 % (0-9) Eosinophils (%) (Auto) 0 % (0-3) Basophils (%) (Auto) 0 % (0-3) Neutrophils # (Auto) 12.1 x10^3uL (1.8-7.7) Lymphocytes # (Auto) 0.7 x10^3/uL (1.0-4.8) Monocytes # (Auto) 1.4 x10^3/uL (0.0-1.1) Eosinophils # (Auto) 0.0 x10^3/uL (0.0-0.7) Basophils # (Auto) 0.0 x10^3/uL (0.0-0.2) Phosphorus Level 2.6 mg/dL (2.6-4.7) Magnesium Level 1.9 mg/dL (1.8-2.4) VTE Prophylaxis Ordered VTE Prophylaxis Devices: Yes VTE Pharmacological Prophylaxi: Yes Assessment/Plan Assessment/Plan Critical hyponatremia with abrupt jump of Na on correction s/p hypertonic saline at ER-need to watch out for central pontine myelinolysis bec of the signif jump in Na History of bipolar/PTSD?-Recently discharged from inpatient psych 2 days ago Seizure in the hospital-new onset, witnessed Mild hypokalemia Reactive leukocytosis Normal TSH and cortisol Mild rhabdomyolysis Met encephalopathy secondary to above Plan Keep in ICU since we need to watch out for central pontine myelinolysis Half-normal saline with 40 of K as per renal Recheck lites again tomorrow PT OT I am comfortable starting liquid diet Monitor that leukocytosis Replace K accordingly Home meds I have reconciled except clonazepam and Cymbalta to hold maybe can start tomorrow if mentation improves Otherwise the rest of the pills she can take Discussed with ICU staff and renal WAYNE ALNDA MD Dec 24, 2017 12:02
[2017-12-24] MEDS ORDERED: POTASSIUM CHLORIDE 30 MEQ in IV 1/2 NORMAL SALINE 1,000 ML IV ONE (13:00)
[2017-12-24] MEDS ORDERED: OMEG1CAP6 PO (13:13)
[2017-12-24] MEDS ORDERED: IBUP-1007 PO (13:13)
[2017-12-24] MEDS ORDERED: METO50TA6 PO (13:13)
[2017-12-24] MEDS ORDERED: FLUT16SP NS (13:13)
[2017-12-24] MEDS ORDERED: POLY255P PO (13:13)
[2017-12-24] MEDS ORDERED: OXYC5CAP PO (13:13)
[2017-12-24] MEDS ORDERED: ZOLP5TAB5 PO (13:13)
[2017-12-24] MEDS ORDERED: CHOL500016 PO (13:13)
[2017-12-24] MEDS ORDERED: CLON0.5T11 PO (13:13)
[2017-12-24] MEDS ORDERED: PROM25TA10 PO (13:13)
[2017-12-24] MEDS ORDERED: ACET325T9 PO (13:13)
[2017-12-24] MEDS ORDERED: DULO30CA2 PO (13:13)
[2017-12-24] MEDS ORDERED: CLON0.1T PO (13:13)
[2017-12-24] MEDS ORDERED: ACETAMINOPHEN 325 MG TABLET. PO PRN (13:15)
[2017-12-24 13:20] LABS: ALBUMIN 2.9 g/dL (3.4-5.0); ALBUMIN/GLOBULIN RATIO 1.1 (1.0-1.7); CALCIUM 8.7 mg/dL (8.5-10.1); CREATININE 0.6 mg/dL (0.6-1.0); GFR 100.6; POTASSIUM 3.4 mmol/L (3.5-5.1); TOTAL BILIRUBIN 0.7 mg/dL (0.2-1.0); TOTAL PROTEIN 5.6 g/dL (6.4-8.2)
[2017-12-24] MEDS ORDERED: IBUPROFEN 200 MG TABLET. PO PRN (13:45)
[2017-12-24] MEDS ORDERED: PROMETHAZINE 12.5 MG TABLET. PO PRN (13:45)
[2017-12-24] MEDS: METOPROLOL TART IMMED RELEASE 50 MG TABLET. PO SCH ×2 (13:58→21:09)
[2017-12-24] MEDS: CHOLECALCIFEROL (VITAMIN D3) 5,000 UNIT CAPSULE PO SCH (13:59)
[2017-12-24] MEDS: OMEGA-3 FATTY ACIDS/FISH OIL 1,000 MG CAPSULE. PO SCH (13:59)
[2017-12-24] MEDS ORDERED: POLYETHYLENE GLYCOL 3350 17 GM PACKET. PO PRN (14:00)
[2017-12-24] MEDS ORDERED: PHENAZOPYRIDINE 200 MG TABLET. PO PRN (16:15)
[2017-12-24] MEDS: oxyCODONE IR 5 MG TABLET PO PRN (20:03)
[2017-12-24 21:14] LABS: SODIUM, URINE <60 mmol/L (Not Estab.); UR POTASSIUM 5.1 mmol/L (Not Estab.)
[2017-12-25] VITALS (16 sets, daily range): BP systolic 102–195; BP diastolic 39–98
[2017-12-25] MEDS ORDERED: LABETALOL 20 MG/4 ML DISP.SYRIN. IVP ONE (06:00)
[2017-12-25 06:43] LABS: CALCIUM 8.9 mg/dL (8.5-10.1); CREATININE 0.7 mg/dL (0.6-1.0); GFR 84.2; MAGNESIUM 1.8 mg/dL (1.8-2.4)
[2017-12-25 06:50] LABS: POTASSIUM 2.6 mmol/L (3.5-5.1)
[2017-12-25 06:59] LABS: BASO # 0.1 x10^3/uL (0.0-0.2); BASO % 1 % (0-3); EOS % 0 % (0-3); HEMATOCRIT 35.3 % (36.0-47.0); HEMOGLOBIN 12.8 g/dL (12.0-15.5); LYMPH # 1.2 x10^3/uL (1.0-4.8); LYMPH % 12 % (24-48); MEAN CORPUSCULAR HEMOGLOBIN 32 pg (25-35); MEAN CORPUSCULAR HGB CONC 36 g/dL (31-37); MEAN CORPUSCULAR VOLUME 87 fL (79-100); MONO % 10 % (0-9); NEUT % 78 % (31-73); PLATELET COUNT 302 x10^3/uL (140-400); RED BLOOD COUNT 4.07 x10^6/uL (3.50-5.40); RED CELL DISTRIBUTION WIDTH 12.8 % (11.5-14.5); WHITE BLOOD COUNT 10.2 x10^3/uL (4.0-11.0)
[2017-12-25] MEDS ORDERED: POTASSIUM CL 40MEQ IN 0.9%NACL 1,000 ML IV SCH (07:30)
[2017-12-25] MEDS: METOPROLOL TART IMMED RELEASE 50 MG TABLET. PO SCH ×2 (08:28→20:10)
[2017-12-25] MEDS: cloNIDine HCL 0.1 MG TABLET PO PRN (08:28)
[2017-12-25] MEDS: CHOLECALCIFEROL (VITAMIN D3) 5,000 UNIT CAPSULE PO SCH (08:29)
[2017-12-25] MEDS: OMEGA-3 FATTY ACIDS/FISH OIL 1,000 MG CAPSULE. PO SCH (08:29)
[2017-12-25] MEDS: oxyCODONE IR 5 MG TABLET PO PRN ×3 (08:38→20:11)
[2017-12-25] MEDS ORDERED: POTASSIUM CHLORIDE 20 MEQ TABLET.ER. PO ONE ×2 (12:00)
--- NOTE | 2017-12-25 12:50 | PDOC ---
PROGRESS NOTES Chief Complaint Chief Complaint Critical hyponatremia with abrupt jump of Na on correction s/p hypertonic saline at ER-need to watch out for central pontine myelinolysis bec of the signif jump in Na History of bipolar/PTSD?-Recently discharged from inpatient psych 2 days ago Seizure in the hospital-new onset, witnessed Mild hypokalemia Reactive leukocytosis Normal TSH and cortisol Mild rhabdomyolysis Met encephalopathy secondary to above Left shoulder fx RT elbow fx History of Present Illness History of Present Illness Mentation is still slow but seems to be improved from yesterday Sodium further up today 132 from 129 from 104 in the last 24- 48 hrs. Potassium critically low 2.6 Discussed with significant other at bedside-patient complaining of left shoulder pain and right elbow pain from the fractures Tells me she is on 15 mg oxycodone? 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 PT OT-has recommended SNU, social work consult for PT recommendations Vitals Vitals Vital Signs Date Time Temp Pulse Resp B/P (MAP) Pulse Ox O2 Delivery O2 Flow Rate FiO2 12/25/17 11:00 98.0 80 24 102/39 (60) 93 Room Air 98.0 12/25/17 10:09 4.0 Physical Exam General: No acute distress Heart: Regular rate, Normal S1, Normal S2 Abdomen: Normal bowel sounds, Soft, No tenderness, No hepatosplenomegaly, No masses Extremities: No clubbing, No cyanosis, No edema, Normal pulses, No tenderness/ swelling Skin: No rashes, No breakdown, No significant lesion Labs LABS Laboratory Tests Test 12/25/17 00:30 12/25/17 06:00 Sodium Level 127 mmol/L (136-145) 132 mmol/L (136-145) White Blood Count 10.2 x10^3/uL (4.0-11.0) Red Blood Count 4.07 x10^6/uL (3.50-5.40) Hemoglobin 12.8 g/dL (12.0-15.5) Hematocrit 35.3 % (36.0-47.0) Mean Corpuscular Volume 87 fL (79-100) Mean Corpuscular Hemoglobin 32 pg (25-35) Mean Corpuscular Hemoglobin Concent 36 g/dL (31-37) Red Cell Distribution Width 12.8 % (11.5-14.5) Platelet Count 302 x10^3/uL (140-400) Neutrophils (%) (Auto) 78 % (31-73) Lymphocytes (%) (Auto) 12 % (24-48) Monocytes (%) (Auto) 10 % (0-9) Eosinophils (%) (Auto) 0 % (0-3) Basophils (%) (Auto) 1 % (0-3) Neutrophils # (Auto) 8.0 x10^3uL (1.8-7.7) Lymphocytes # (Auto) 1.2 x10^3/uL (1.0-4.8) Monocytes # (Auto) 1.0 x10^3/uL (0.0-1.1) Eosinophils # (Auto) 0.0 x10^3/uL (0.0-0.7) Basophils # (Auto) 0.1 x10^3/uL (0.0-0.2) Potassium Level 2.6 mmol/L (3.5-5.1) Chloride Level 97 mmol/L (98-107) Carbon Dioxide Level 25 mmol/L (21-32) Anion Gap 10 (6-14) Blood Urea Nitrogen 6 mg/dL (7-20) Creatinine 0.7 mg/dL (0.6-1.0) Estimated GFR (Cockcroft-Gault) 84.2 Glucose Level 99 mg/dL (70-99) Calcium Level 8.9 mg/dL (8.5-10.1) Magnesium Level 1.8 mg/dL (1.8-2.4) Review of Systems Review of Systems Right elbow pain, left shoulder pain otherwise rest of ROS 14 point negative Assessment and Plan Assessmemt and Plan Problems Medical Problems: (1) Hypokalemia Status: Acute (2) Hyponatremia Status: Acute (3) Rhabdomyolysis Status: Acute (4) Seizure Status: Acute Comment Review of Relevant I have reviewed the following items yariel (where applicable) has been applied. Labs Laboratory Tests Test 12/23/17 23:10 12/23/17 23:27 12/23/17 23:30 12/24/17 01:00 Glucose (Fingerstick) 168 mg/dL (70-99) Urine Collection Type U cath Urine Color Yellow Urine Clarity Clear Urine pH 6.5 Urine Specific [place] 1.020 Urine Protein >=300 mg/dL (NEG-TRACE) Urine Glucose (UA) 100 mg/dL (NEG) Urine Ketones (Stick) >=80 mg/dL (NEG) Urine Blood Large (NEG) Urine Nitrite Negative (NEG) Urine Bilirubin Negative (NEG) Urine Urobilinogen Dipstick 0.2 mg/dL (0.2 mg/dL) Urine Leukocyte Esterase Negative (NEG) Urine RBC 6-10 /HPF (0-2) Urine WBC 1-4 /HPF (0-4) Urine Squamous Epithelial Cells Few /LPF Urine Bacteria 0 /HPF (0-FEW) Urine Opiates Screen Pos (NEG) Urine Methadone Screen Neg (NEG) Urine Barbiturates Neg (NEG) Urine Phencyclidine Screen Neg (NEG) Urine Amphetamine/Methamphetamine Neg (NEG) Urine Benzodiazepines Screen Neg (NEG) Urine Cocaine Screen Neg (NEG) Urine Cannabinoids Screen Neg (NEG) Urine Ethyl Alcohol Neg (NEG) White Blood Count 19.9 x10^3/uL (4.0-11.0) Red Blood Count 5.07 x10^6/uL (3.50-5.40) Hemoglobin 15.5 g/dL (12.0-15.5) Hematocrit 43.3 % (36.0-47.0) Mean Corpuscular Volume 85 fL (79-100) Mean Corpuscular Hemoglobin 31 pg (25-35) Mean Corpuscular Hemoglobin Concent 36 g/dL (31-37) Red Cell Distribution Width 12.8 % (11.5-14.5) Platelet Count 463 x10^3/uL (140-400) Neutrophils (%) (Auto) 79 % (31-73) Lymphocytes (%) (Auto) 12 % (24-48) Monocytes (%) (Auto) 8 % (0-9) Eosinophils (%) (Auto) 0 % (0-3) Basophils (%) (Auto) 0 % (0-3) Neutrophils # (Auto) 15.7 x10^3uL (1.8-7.7) Lymphocytes # (Auto) 2.5 x10^3/uL (1.0-4.8) Monocytes # (Auto) 1.7 x10^3/uL (0.0-1.1) Eosinophils # (Auto) 0.0 x10^3/uL (0.0-0.7) Basophils # (Auto) 0.1 x10^3/uL (0.0-0.2) Segmented Neutrophils % 81 % (35-66) Lymphocytes % 9 % (24-48) Monocytes % 10 % (0-10) Platelet Estimate Increased (ADEQUATE) Sodium Level 108 mmol/L (136-145) Potassium Level 2.6 mmol/L (3.5-5.1) Chloride Level 69 mmol/L (98-107) Carbon Dioxide Level 21 mmol/L (21-32) Anion Gap 18 (6-14) Blood Urea Nitrogen 7 mg/dL (7-20) Creatinine 1.0 mg/dL (0.6-1.0) Estimated GFR (Cockcroft-Gault) 55.8 BUN/Creatinine Ratio 7 (6-20) Glucose Level 164 mg/dL (70-99) Calcium Level 8.8 mg/dL (8.5-10.1) Total Bilirubin 1.2 mg/dL (0.2-1.0) Aspartate Amino Transf (AST/SGOT) 98 U/L (15-37) Alanine Aminotransferase (ALT/SGPT) 80 U/L (14-59) Alkaline Phosphatase 152 U/L (46-116) Creatine Kinase 2797 U/L (26-192) Troponin I Quantitative < 0.017 ng/mL (0.000-0.055) Total Protein 7.7 g/dL (6.4-8.2) Albumin 4.1 g/dL (3.4-5.0) Albumin/Globulin Ratio 1.1 (1.0-1.7) Salicylates Level < 2.8 mg/dL (2.8-20.0) Salicylate Last Dose Date Unknown Salicylate Last Dose Time Unknown Acetaminophen Level < 2 mcg/ml (10-30) Acetaminophen Last Dose Date Unknown Acetaminophen Last Dose Time Unknown [place] Level 1.1 mmol/L (0.6-1.2) [place] Last Dose Date 12/23/17 [place] Last Dose Time 0000 Ethyl Alcohol Level < 10 mg/dL (0-10) Thyroid Stimulating Hormone (TSH) 1.571 uIU/mL (0.358-3.74) Cortisol AM Sample 70.0 ug/dL (4.3-22.4) Test 12/24/17 01:30 12/24/17 03:10 12/24/17 03:14 12/24/17 04:40 Sodium Level 104 mmol/L (136-145) Potassium Level 2.8 mmol/L (3.5-5.1) Chloride Level 72 mmol/L (98-107) Carbon Dioxide Level 20 mmol/L (21-32) Anion Gap 12 (6-14) 15 mmol/L (6-14) Blood Urea Nitrogen 7 mg/dL (7-20) Creatinine 0.4 mg/dL (0.6-1.0) Estimated GFR (Cockcroft-Gault) 160.7 Glucose Level 167 mg/dL (70-99) 127 mg/dL (70-99) Calcium Level 8.5 mg/dL (8.5-10.1) Lactic Acid Level 0.9 mmol/L (0.4-2.0) Bedside Hemoglobin 12.9 g/dL (12-15) Bedside Hematocrit 38 % (36-40) Bedside Sodium 107 mmol/L (135-145) Bedside Potassium 3.1 mmol/L (3.5-5.0) Bedside Chloride 69 mmol/L (98-110) Bedside Total CO2 27 mmol/L (23-32) Bedside Blood Urea Nitrogen 5 mg/dL (8-26) Bedside Creatinine 0.5 mg/dL (0.5-1.4) Bedside Ionized Calcium ([place]) 1.02 mmol/L (1.13-1.32) Nasal Screen MRSA (PCR) Negative (Negative) Test 12/24/17 09:10 12/24/17 11:39 12/24/17 12:40 12/25/17 00:30 White Blood Count 14.3 x10^3/uL (4.0-11.0) Red Blood Count 4.50 x10^6/uL (3.50-5.40) Hemoglobin 13.6 g/dL (12.0-15.5) Hematocrit 38.3 % (36.0-47.0) Mean Corpuscular Volume 85 fL (79-100) Mean Corpuscular Hemoglobin 30 pg (25-35) Mean Corpuscular Hemoglobin Concent 36 g/dL (31-37) Red Cell Distribution Width 12.9 % (11.5-14.5) Platelet Count 307 x10^3/uL (140-400) Neutrophils (%) (Auto) 85 % (31-73) Lymphocytes (%) (Auto) 5 % (24-48) Monocytes (%) (Auto) 10 % (0-9) Eosinophils (%) (Auto) 0 % (0-3) Basophils (%) (Auto) 0 % (0-3) Neutrophils # (Auto) 12.1 x10^3uL (1.8-7.7) Lymphocytes # (Auto) 0.7 x10^3/uL (1.0-4.8) Monocytes # (Auto) 1.4 x10^3/uL (0.0-1.1) Eosinophils # (Auto) 0.0 x10^3/uL (0.0-0.7) Basophils # (Auto) 0.0 x10^3/uL (0.0-0.2) Sodium Level 124 mmol/L (136-145) 129 mmol/L (136-145) 127 mmol/L (136-145) Potassium Level 3.1 mmol/L (3.5-5.1) 3.4 mmol/L (3.5-5.1) Chloride Level 87 mmol/L (98-107) 94 mmol/L (98-107) Carbon Dioxide Level 28 mmol/L (21-32) 25 mmol/L (21-32) Anion Gap 9 (6-14) 10 (6-14) Blood Urea Nitrogen 5 mg/dL (7-20) 4 mg/dL (7-20) Creatinine 0.5 mg/dL (0.6-1.0) 0.6 mg/dL (0.6-1.0) Estimated GFR (Cockcroft-Gault) 124.2 100.6 Glucose Level 102 mg/dL (70-99) 100 mg/dL (70-99) Calcium Level 8.5 mg/dL (8.5-10.1) 8.7 mg/dL (8.5-10.1) Phosphorus Level 2.6 mg/dL (2.6-4.7) Magnesium Level 1.9 mg/dL (1.8-2.4) Urine Sodium <60 mmol/L (Not Estab.) Urine Potassium 5.1 mmol/L (Not Estab.) Urine Chloride <60 mmol/L (Not Estab.) BUN/Creatinine Ratio 7 (6-20) Total Bilirubin 0.7 mg/dL (0.2-1.0) Aspartate Amino Transf (AST/SGOT) 53 U/L (15-37) Alanine Aminotransferase (ALT/SGPT) 55 U/L (14-59) Alkaline Phosphatase 107 U/L (46-116) Total Protein 5.6 g/dL (6.4-8.2) Albumin 2.9 g/dL (3.4-5.0) Albumin/Globulin Ratio 1.1 (1.0-1.7) Test 12/25/17 06:00 White Blood Count 10.2 x10^3/uL (4.0-11.0) Red Blood Count 4.07 x10^6/uL (3.50-5.40) Hemoglobin 12.8 g/dL (12.0-15.5) Hematocrit 35.3 % (36.0-47.0) Mean Corpuscular Volume 87 fL (79-100) Mean Corpuscular Hemoglobin 32 pg (25-35) Mean Corpuscular Hemoglobin Concent 36 g/dL (31-37) Red Cell Distribution Width 12.8 % (11.5-14.5) Platelet Count 302 x10^3/uL (140-400) Neutrophils (%) (Auto) 78 % (31-73) Lymphocytes (%) (Auto) 12 % (24-48) Monocytes (%) (Auto) 10 % (0-9) Eosinophils (%) (Auto) 0 % (0-3) Basophils (%) (Auto) 1 % (0-3) Neutrophils # (Auto) 8.0 x10^3uL (1.8-7.7) Lymphocytes # (Auto) 1.2 x10^3/uL (1.0-4.8) Monocytes # (Auto) 1.0 x10^3/uL (0.0-1.1) Eosinophils # (Auto) 0.0 x10^3/uL (0.0-0.7) Basophils # (Auto) 0.1 x10^3/uL (0.0-0.2) Sodium Level 132 mmol/L (136-145) Potassium Level 2.6 mmol/L (3.5-5.1) Chloride Level 97 mmol/L (98-107) Carbon Dioxide Level 25 mmol/L (21-32) Anion Gap 10 (6-14) Blood Urea Nitrogen 6 mg/dL (7-20) Creatinine 0.7 mg/dL (0.6-1.0) Estimated GFR (Cockcroft-Gault) 84.2 Glucose Level 99 mg/dL (70-99) Calcium Level 8.9 mg/dL (8.5-10.1) Magnesium Level 1.8 mg/dL (1.8-2.4) Laboratory Tests Test 12/25/17 00:30 12/25/17 06:00 Sodium Level 127 mmol/L (136-145) 132 mmol/L (136-145) White Blood Count 10.2 x10^3/uL (4.0-11.0) Red Blood Count 4.07 x10^6/uL (3.50-5.40) Hemoglobin 12.8 g/dL (12.0-15.5) Hematocrit 35.3 % (36.0-47.0) Mean Corpuscular Volume 87 fL (79-100) Mean Corpuscular Hemoglobin 32 pg (25-35) Mean Corpuscular Hemoglobin Concent 36 g/dL (31-37) Red Cell Distribution Width 12.8 % (11.5-14.5) Platelet Count 302 x10^3/uL (140-400) Neutrophils (%) (Auto) 78 % (31-73) Lymphocytes (%) (Auto) 12 % (24-48) Monocytes (%) (Auto) 10 % (0-9) Eosinophils (%) (Auto) 0 % (0-3) Basophils (%) (Auto) 1 % (0-3) Neutrophils # (Auto) 8.0 x10^3uL (1.8-7.7) Lymphocytes # (Auto) 1.2 x10^3/uL (1.0-4.8) Monocytes # (Auto) 1.0 x10^3/uL (0.0-1.1) Eosinophils # (Auto) 0.0 x10^3/uL (0.0-0.7) Basophils # (Auto) 0.1 x10^3/uL (0.0-0.2) Potassium Level 2.6 mmol/L (3.5-5.1) Chloride Level 97 mmol/L (98-107) Carbon Dioxide Level 25 mmol/L (21-32) Anion Gap 10 (6-14) Blood Urea Nitrogen 6 mg/dL (7-20) Creatinine 0.7 mg/dL (0.6-1.0) Estimated GFR (Cockcroft-Gault) 84.2 Glucose Level 99 mg/dL (70-99) Calcium Level 8.9 mg/dL (8.5-10.1) Magnesium Level 1.8 mg/dL (1.8-2.4) Microbiology 12/24/17 Blood Culture - Preliminary, Resulted NO GROWTH AFTER 1 DAY Medications Current Medications Lorazepam (Ativan) 2 mg STK-MED ONCE .ROUTE ; Start 12/23/17 at 23:16; Stop at 23:17; Status DC Lorazepam (Ativan) 1 mg 1X ONCE IV Last administered on 12/23/17at 23:45; Start 12/23/17 at 23:45; Stop 12/23/17 at 23:46; Status DC Levetiracetam 1000 mg/Dextrose 110 ml @ 440 mls/hr 1X ONCE IV Last administered on 12/23/17at 23:45; Start 12/23/17 at 23:45; Stop 12/23/17 at 23 :59; Status DC Sodium Chloride 500 ml @ 30 mls/hr 1X ONCE IV Last administered on at 01:00; Start 12/24/17 at 01:00; Stop 12/24/17 at 17:39; Status DC Sodium Chloride 500 ml @ 30 mls/hr 1X STAT IV ; Start 12/24/17 at 00:21; Stop 12/24/17 at 17:00; Status UNV Sodium Chloride 500 ml @ 50 mls/hr 1X ONCE IV ; Start 12/24/17 at 00:30; Stop 12/24/17 at 10:29; Status UNV Potassium Chloride/Sodium Chloride 1,000 ml @ 75 mls/hr 1X ONCE IV Last administered on 12/24/17at 01:00; Start 12/24/17 at 01:00; Stop 12/24/17 at 14 :19; Status DC Sodium Chloride 500 ml @ 30 mls/hr 1X ONCE IV Last administered on at 04:00; Start 12/24/17 at 04:00; Stop 12/24/17 at 20:39; Status DC Sodium Chloride 500 ml @ 50 mls/hr 1X ONCE IV ; Start 12/24/17 at 03:45; Stop 12/24/17 at 13:44; Status UNV Acetaminophen (Tylenol) 500 mg PRN Q6HRS PRN PO MILD PAIN / TEMP; Start at 09:45; Status Cancel Ondansetron HCl (Zofran) 4 mg PRN Q6HRS PRN IV NAUSEA/VOMITING; Start at 09:45 Ondansetron HCl (Zofran Odt) 4 mg PRN Q6HRS PRN PO NAUSEA/VOMITING; Start 03/01 at 09:45; Status Cancel Lorazepam (Ativan) 2 mg PRN Q4HRS PRN IV sz Last administered on 12/25/17at 09: 30; Start 12/24/17 at 09:45 Potassium Chloride 30 meq/ Sodium Chloride 1,015 ml @ 75 mls/hr 1X ONCE IV Last administered on 12/24/17at 13:00; Start 12/24/17 at 13:00; Stop 12/25/17 at 02:31; Status DC Acetaminophen (Tylenol) 325 mg PRN Q4HRS PRN PO HEADACHE / TEMP; Start at 13:15 Clonidine HCl (Catapres) 0.1 mg PRN BID PRN PO SBP>160 Last administered on at 08:28; Start 12/24/17 at 13:15 Metoprolol Tartrate (Lopressor) 50 mg BID PO Last administered on 12/25/17at 08 :28; Start 12/24/17 at 14:00 Fish Oil (Fish Oil) 1 mg DAILY PO ; Start 12/24/17 at 14:00 Ondansetron HCl (Zofran Odt) 4 mg PRN Q6HRS PRN PO NAUSEA/VOMITING 1ST CHOICE; Start 12/24/17 at 13:15 Polyethylene Glycol (miraLAX PACKET) 17 gm PRN DAILY PRN PO CONSTIPATION 1ST CHOICE; Start 12/24/17 at 14:00 Vitamin D (Vitamin D3) 5,000 unit DAILY PO Last administered on 12/25/17at 08: 29; Start 12/24/17 at 14:00 Ibuprofen (Motrin) 600 mg PRN Q6HRS PRN PO INFLAMMATION; Start 12/24/17 at 13: 45 Oxycodone HCl (Roxicodone) 5 mg PRN TID PRN PO PAIN Last administered on at 08:38; Start 12/24/17 at 13:45; Stop 12/25/17 at 12:47; Status DC Promethazine HCl (Phenergan) 25 mg PRN Q6HRS PRN PO NAUSEA/VOMITING, 2ND CHOICE ; Start 12/24/17 at 13:45 Phenazopyridine HCl (Pyridium) 200 mg PRN TID PRN PO URINARY PAIN Last administered on 12/24/17at 18:24; Start 12/24/17 at 16:15 Labetalol HCl (Normodyne Iv Push) 20 mg 1X ONCE IVP Last administered on 12/25at 05:37; Start 12/25/17 at 06:00; Stop 12/25/17 at 06:01; Status DC Potassium Chloride/Sodium Chloride 1,000 ml @ 250 mls/hr Q4H IV Last administered on 12/25/17at 08:28; Start 12/25/17 at 07:30; Stop 12/25/17 at 11 :29; Status DC Potassium Chloride (Klor-Con) 40 meq 1X ONCE PO ; Start 12/25/17 at 12:00; Stop 12/25/17 at 12:01; Status DC Potassium Chloride (Klor-Con) 20 meq 1X ONCE PO ; Start 12/25/17 at 12:00; Stop 12/25/17 at 12:01; Status DC Potassium Chloride (Klor-Con) 40 meq BIDWMEALS PO ; Start 12/25/17 at 17:00 Oxycodone HCl (Roxicodone) 10 mg PRN TID PRN PO PAIN; Start 12/25/17 at 13:00 ; Status UNV Oxycodone/ Acetaminophen (Percocet 10/325) 1 tab PRN Q4HRS PRN PO pain; Start 12/25/17 at 13:00; Status UNV Active Scripts Active Ondansetron Odt (Ondansetron) 4 Mg Tab.rapdis 1 Tab PO PRN Q6-8HRS Reported Cymbalta (Duloxetine Hcl) 30 Mg Capsule.dr 30 Mg PO BID Clonazepam 0.5 Mg Tablet 1 Tab PO BID Zolpidem Tartrate 5 Mg Tablet 5 Mg PO PRN QHS PRN Fluticasone Propionate Nasal Omega (Fluticasone Propionate) 16 Gm Omega.susp 2 Omega NS DAILY PRN Fish Oil 1,000 Mg Capsule ([place]-3 Fatty Acids/Fish Oil) 1 Each Capsule 1 Each PO Vitamin D3 (Cholecalciferol (Vitamin D3)) 5,000 Unit Tablet 1 Tab PO DAILY Oxycodone Hcl 5 Mg Capsule 1 Cap PO TID PRN Ibuprofen 600 Mg Tablet 600 Mg PO PRN Q6HRS PRN Clonidine Hcl 0.1 Mg Tablet 0.1 Mg PO BID PRN Tylenol (Acetaminophen) 325 Mg Tablet 1 Tab PO PRN Q4HRS Promethazine Hcl 25 Mg Tablet 1 Tab PO PRN Q6HRS Polyethylene Glycol 3350 255 Gm Powder 17 Gm PO DAILY PRN Metoprolol Tartrate 50 Mg Tablet 1 Tab PO BID Vitals/I & O Vital Sign - Last 24 Hours 12/24/17 12/24/17 12/24/17 12/24/17 13:00 14:00 15:00 16:00 Temp 98.0 98.0 Pulse 78 78 78 78 Resp 20 20 20 20 B/P (MAP) 119/57 (77) 120/70 (87) 122/78 (93) 133/78 (96) Pulse Ox 95 96 95 95 O2 Delivery Room Air Room Air Room Air Room Air 12/24/17 12/24/17 12/24/17 12/24/17 16:00 17:00 17:56 20:03 Pulse 78 83 Resp 20 20 20 B/P (MAP) 119/72 (88) 137/70 (92) Pulse Ox 95 95 O2 Delivery Room Air Room Air Room Air 12/24/17 12/24/17 12/24/17 12/24/17 20:08 20:11 21:03 21:09 Temp 100.0 100.0 Pulse 98 85 85 Resp 18 16 B/P (MAP) 142/59 (86) 135/65 (88) 135/65 Pulse Ox 95 93 O2 Delivery Room Air Room Air Room Air 12/24/17 12/24/17 12/25/17 12/25/17 22:16 23:26 00:01 01:04 Temp 100.4 100.4 Pulse 98 70 67 Resp 20 20 18 B/P (MAP) 138/60 (86) 142/54 (83) 136/52 (80) Pulse Ox 95 95 94 O2 Delivery Room Air Room Air Room Air Room Air O2 Flow Rate 4.0 12/25/17 12/25/17 12/25/17 12/25/17 02:01 03:36 04:06 04:08 Temp 98.4 98.5 98.4 98.5 Pulse 69 90 88 Resp 18 20 B/P (MAP) 136/52 (80) 177/69 (105) 174/78 (110) Pulse Ox 94 97 92 O2 Delivery Room Air Room Air Room Air Room Air O2 Flow Rate 4.0 12/25/17 12/25/17 12/25/17 12/25/17 05:07 05:37 06:10 07:00 Temp 99.9 99.0 99.9 99.0 Pulse 87 72 79 84 Resp 20 20 20 B/P (MAP) 195/68 (110) 195/68 148/87 (107) 149/98 (115) Pulse Ox 95 93 95 O2 Delivery Room Air Room Air Room Air 12/25/17 12/25/17 12/25/17 12/25/17 08:00 08:00 08:28 08:28 Pulse 67 83 85 Resp 18 B/P (MAP) 148/55 (86) 189/111 189/111 Pulse Ox 95 O2 Delivery Room Air Room Air O2 Flow Rate 4.0 12/25/17 12/25/17 12/25/17 12/25/17 08:38 09:00 10:09 10:13 Temp 99.0 99.0 Pulse 68 67 Resp 18 18 B/P (MAP) 148/55 (86) 106/42 (63) Pulse Ox 95 96 96 97 O2 Delivery Room Air Room Air Room Air Room Air O2 Flow Rate 4.0 4.0 12/25/17 11:00 Temp 98.0 98.0 Pulse 80 Resp 24 B/P (MAP) 102/39 (60) Pulse Ox 93 O2 Delivery Room Air Intake and Output 12/24/17 12/24/17 12/25/17 15:00 23:00 07:00 Intake Total 1365 ml 70 ml Output Total 1850 ml 560 ml 275 ml Balance -1850 ml 805 ml -205 ml WAYNE LANDA MD Dec 25, 2017 12:50
[2017-12-25] MEDS ORDERED: clonazePAM 0.5 MG TABLET PO SCH (13:00)
[2017-12-25] MEDS: DULoxetine HCL 30 MG CAPSULE.DR PO SCH ×2 (14:05→20:10)
--- NOTE | 2017-12-25 14:06 | PDOC ---
PROGRESS NOTES Subjective Subjective SEEN IN FOLLOW UP OF HYPONATREMIA Objective Objective Vital Signs Date Time Temp Pulse Resp B/P (MAP) Pulse Ox O2 Delivery O2 Flow Rate FiO2 12/25/17 11:00 98.0 80 24 102/39 (60) 93 Room Air 98.0 12/25/17 10:09 4.0 Intake and Output 12/25/17 07:00 Intake Total 1435 ml Output Total 2685 ml Balance -1250 ml Intake Oral 120 ml IV Total 1315 ml Output Urine Total 2685 ml Physical Exam Abdomen: Normal bowel sounds, Soft, No tenderness, No hepatosplenomegaly, No masses Heart: Regular rate, Normal S1, Normal S2, No murmurs, Gallops Extremities: No clubbing, No cyanosis, No edema, Normal pulses, No tenderness/ swelling General: Alert, Cooperative Lungs: Clear to auscultation, Normal air movement Psych/Mental Status: Other (CONFUSED) Diagnosis Other HYPONATREMIA WITH SEIZURE. NO FURTHER SEIZURES. OFF OF IVF. CONT TO MONITOR Assessment Assessment Problems Medical Problems: (1) Hypokalemia Status: Acute (2) Hyponatremia Status: Acute (3) Rhabdomyolysis Status: Acute (4) Seizure Status: Acute Comment Review of Relevant I have reviewed the following items yariel (where applicable) has been applied. Labs Laboratory Tests Test 12/23/17 23:10 12/23/17 23:27 12/23/17 23:30 12/24/17 01:00 Glucose (Fingerstick) 168 mg/dL (70-99) Urine Collection Type U cath Urine Color Yellow Urine Clarity Clear Urine pH 6.5 Urine Specific [place] 1.020 Urine Protein >=300 mg/dL (NEG-TRACE) Urine Glucose (UA) 100 mg/dL (NEG) Urine Ketones (Stick) >=80 mg/dL (NEG) Urine Blood Large (NEG) Urine Nitrite Negative (NEG) Urine Bilirubin Negative (NEG) Urine Urobilinogen Dipstick 0.2 mg/dL (0.2 mg/dL) Urine Leukocyte Esterase Negative (NEG) Urine RBC 6-10 /HPF (0-2) Urine WBC 1-4 /HPF (0-4) Urine Squamous Epithelial Cells Few /LPF Urine Bacteria 0 /HPF (0-FEW) Urine Opiates Screen Pos (NEG) Urine Methadone Screen Neg (NEG) Urine Barbiturates Neg (NEG) Urine Phencyclidine Screen Neg (NEG) Urine Amphetamine/Methamphetamine Neg (NEG) Urine Benzodiazepines Screen Neg (NEG) Urine Cocaine Screen Neg (NEG) Urine Cannabinoids Screen Neg (NEG) Urine Ethyl Alcohol Neg (NEG) White Blood Count 19.9 x10^3/uL (4.0-11.0) Red Blood Count 5.07 x10^6/uL (3.50-5.40) Hemoglobin 15.5 g/dL (12.0-15.5) Hematocrit 43.3 % (36.0-47.0) Mean Corpuscular Volume 85 fL (79-100) Mean Corpuscular Hemoglobin 31 pg (25-35) Mean Corpuscular Hemoglobin Concent 36 g/dL (31-37) Red Cell Distribution Width 12.8 % (11.5-14.5) Platelet Count 463 x10^3/uL (140-400) Neutrophils (%) (Auto) 79 % (31-73) Lymphocytes (%) (Auto) 12 % (24-48) Monocytes (%) (Auto) 8 % (0-9) Eosinophils (%) (Auto) 0 % (0-3) Basophils (%) (Auto) 0 % (0-3) Neutrophils # (Auto) 15.7 x10^3uL (1.8-7.7) Lymphocytes # (Auto) 2.5 x10^3/uL (1.0-4.8) Monocytes # (Auto) 1.7 x10^3/uL (0.0-1.1) Eosinophils # (Auto) 0.0 x10^3/uL (0.0-0.7) Basophils # (Auto) 0.1 x10^3/uL (0.0-0.2) Segmented Neutrophils % 81 % (35-66) Lymphocytes % 9 % (24-48) Monocytes % 10 % (0-10) Platelet Estimate Increased (ADEQUATE) Sodium Level 108 mmol/L (136-145) Potassium Level 2.6 mmol/L (3.5-5.1) Chloride Level 69 mmol/L (98-107) Carbon Dioxide Level 21 mmol/L (21-32) Anion Gap 18 (6-14) Blood Urea Nitrogen 7 mg/dL (7-20) Creatinine 1.0 mg/dL (0.6-1.0) Estimated GFR (Cockcroft-Gault) 55.8 BUN/Creatinine Ratio 7 (6-20) Glucose Level 164 mg/dL (70-99) Calcium Level 8.8 mg/dL (8.5-10.1) Total Bilirubin 1.2 mg/dL (0.2-1.0) Aspartate Amino Transf (AST/SGOT) 98 U/L (15-37) Alanine Aminotransferase (ALT/SGPT) 80 U/L (14-59) Alkaline Phosphatase 152 U/L (46-116) Creatine Kinase 2797 U/L (26-192) Troponin I Quantitative < 0.017 ng/mL (0.000-0.055) Total Protein 7.7 g/dL (6.4-8.2) Albumin 4.1 g/dL (3.4-5.0) Albumin/Globulin Ratio 1.1 (1.0-1.7) Salicylates Level < 2.8 mg/dL (2.8-20.0) Salicylate Last Dose Date Unknown Salicylate Last Dose Time Unknown Acetaminophen Level < 2 mcg/ml (10-30) Acetaminophen Last Dose Date Unknown Acetaminophen Last Dose Time Unknown [place] Level 1.1 mmol/L (0.6-1.2) [place] Last Dose Date 12/23/17 [place] Last Dose Time 0000 Ethyl Alcohol Level < 10 mg/dL (0-10) Thyroid Stimulating Hormone (TSH) 1.571 uIU/mL (0.358-3.74) Cortisol AM Sample 70.0 ug/dL (4.3-22.4) Test 12/24/17 01:30 12/24/17 03:10 12/24/17 03:14 12/24/17 04:40 Sodium Level 104 mmol/L (136-145) Potassium Level 2.8 mmol/L (3.5-5.1) Chloride Level 72 mmol/L (98-107) Carbon Dioxide Level 20 mmol/L (21-32) Anion Gap 12 (6-14) 15 mmol/L (6-14) Blood Urea Nitrogen 7 mg/dL (7-20) Creatinine 0.4 mg/dL (0.6-1.0) Estimated GFR (Cockcroft-Gault) 160.7 Glucose Level 167 mg/dL (70-99) 127 mg/dL (70-99) Calcium Level 8.5 mg/dL (8.5-10.1) Lactic Acid Level 0.9 mmol/L (0.4-2.0) Bedside Hemoglobin 12.9 g/dL (12-15) Bedside Hematocrit 38 % (36-40) Bedside Sodium 107 mmol/L (135-145) Bedside Potassium 3.1 mmol/L (3.5-5.0) Bedside Chloride 69 mmol/L (98-110) Bedside Total CO2 27 mmol/L (23-32) Bedside Blood Urea Nitrogen 5 mg/dL (8-26) Bedside Creatinine 0.5 mg/dL (0.5-1.4) Bedside Ionized Calcium ([place]) 1.02 mmol/L (1.13-1.32) Nasal Screen MRSA (PCR) Negative (Negative) Test 12/24/17 09:10 12/24/17 11:39 12/24/17 12:40 12/25/17 00:30 White Blood Count 14.3 x10^3/uL (4.0-11.0) Red Blood Count 4.50 x10^6/uL (3.50-5.40) Hemoglobin 13.6 g/dL (12.0-15.5) Hematocrit 38.3 % (36.0-47.0) Mean Corpuscular Volume 85 fL (79-100) Mean Corpuscular Hemoglobin 30 pg (25-35) Mean Corpuscular Hemoglobin Concent 36 g/dL (31-37) Red Cell Distribution Width 12.9 % (11.5-14.5) Platelet Count 307 x10^3/uL (140-400) Neutrophils (%) (Auto) 85 % (31-73) Lymphocytes (%) (Auto) 5 % (24-48) Monocytes (%) (Auto) 10 % (0-9) Eosinophils (%) (Auto) 0 % (0-3) Basophils (%) (Auto) 0 % (0-3) Neutrophils # (Auto) 12.1 x10^3uL (1.8-7.7) Lymphocytes # (Auto) 0.7 x10^3/uL (1.0-4.8) Monocytes # (Auto) 1.4 x10^3/uL (0.0-1.1) Eosinophils # (Auto) 0.0 x10^3/uL (0.0-0.7) Basophils # (Auto) 0.0 x10^3/uL (0.0-0.2) Sodium Level 124 mmol/L (136-145) 129 mmol/L (136-145) 127 mmol/L (136-145) Potassium Level 3.1 mmol/L (3.5-5.1) 3.4 mmol/L (3.5-5.1) Chloride Level 87 mmol/L (98-107) 94 mmol/L (98-107) Carbon Dioxide Level 28 mmol/L (21-32) 25 mmol/L (21-32) Anion Gap 9 (6-14) 10 (6-14) Blood Urea Nitrogen 5 mg/dL (7-20) 4 mg/dL (7-20) Creatinine 0.5 mg/dL (0.6-1.0) 0.6 mg/dL (0.6-1.0) Estimated GFR (Cockcroft-Gault) 124.2 100.6 Glucose Level 102 mg/dL (70-99) 100 mg/dL (70-99) Calcium Level 8.5 mg/dL (8.5-10.1) 8.7 mg/dL (8.5-10.1) Phosphorus Level 2.6 mg/dL (2.6-4.7) Magnesium Level 1.9 mg/dL (1.8-2.4) Urine Sodium <60 mmol/L (Not Estab.) Urine Potassium 5.1 mmol/L (Not Estab.) Urine Chloride <60 mmol/L (Not Estab.) BUN/Creatinine Ratio 7 (6-20) Total Bilirubin 0.7 mg/dL (0.2-1.0) Aspartate Amino Transf (AST/SGOT) 53 U/L (15-37) Alanine Aminotransferase (ALT/SGPT) 55 U/L (14-59) Alkaline Phosphatase 107 U/L (46-116) Total Protein 5.6 g/dL (6.4-8.2) Albumin 2.9 g/dL (3.4-5.0) Albumin/Globulin Ratio 1.1 (1.0-1.7) Test 12/25/17 06:00 White Blood Count 10.2 x10^3/uL (4.0-11.0) Red Blood Count 4.07 x10^6/uL (3.50-5.40) Hemoglobin 12.8 g/dL (12.0-15.5) Hematocrit 35.3 % (36.0-47.0) Mean Corpuscular Volume 87 fL (79-100) Mean Corpuscular Hemoglobin 32 pg (25-35) Mean Corpuscular Hemoglobin Concent 36 g/dL (31-37) Red Cell Distribution Width 12.8 % (11.5-14.5) Platelet Count 302 x10^3/uL (140-400) Neutrophils (%) (Auto) 78 % (31-73) Lymphocytes (%) (Auto) 12 % (24-48) Monocytes (%) (Auto) 10 % (0-9) Eosinophils (%) (Auto) 0 % (0-3) Basophils (%) (Auto) 1 % (0-3) Neutrophils # (Auto) 8.0 x10^3uL (1.8-7.7) Lymphocytes # (Auto) 1.2 x10^3/uL (1.0-4.8) Monocytes # (Auto) 1.0 x10^3/uL (0.0-1.1) Eosinophils # (Auto) 0.0 x10^3/uL (0.0-0.7) Basophils # (Auto) 0.1 x10^3/uL (0.0-0.2) Sodium Level 132 mmol/L (136-145) Potassium Level 2.6 mmol/L (3.5-5.1) Chloride Level 97 mmol/L (98-107) Carbon Dioxide Level 25 mmol/L (21-32) Anion Gap 10 (6-14) Blood Urea Nitrogen 6 mg/dL (7-20) Creatinine 0.7 mg/dL (0.6-1.0) Estimated GFR (Cockcroft-Gault) 84.2 Glucose Level 99 mg/dL (70-99) Calcium Level 8.9 mg/dL (8.5-10.1) Magnesium Level 1.8 mg/dL (1.8-2.4) Laboratory Tests Test 12/25/17 00:30 12/25/17 06:00 Sodium Level 127 mmol/L (136-145) 132 mmol/L (136-145) White Blood Count 10.2 x10^3/uL (4.0-11.0) Red Blood Count 4.07 x10^6/uL (3.50-5.40) Hemoglobin 12.8 g/dL (12.0-15.5) Hematocrit 35.3 % (36.0-47.0) Mean Corpuscular Volume 87 fL (79-100) Mean Corpuscular Hemoglobin 32 pg (25-35) Mean Corpuscular Hemoglobin Concent 36 g/dL (31-37) Red Cell Distribution Width 12.8 % (11.5-14.5) Platelet Count 302 x10^3/uL (140-400) Neutrophils (%) (Auto) 78 % (31-73) Lymphocytes (%) (Auto) 12 % (24-48) Monocytes (%) (Auto) 10 % (0-9) Eosinophils (%) (Auto) 0 % (0-3) Basophils (%) (Auto) 1 % (0-3) Neutrophils # (Auto) 8.0 x10^3uL (1.8-7.7) Lymphocytes # (Auto) 1.2 x10^3/uL (1.0-4.8) Monocytes # (Auto) 1.0 x10^3/uL (0.0-1.1) Eosinophils # (Auto) 0.0 x10^3/uL (0.0-0.7) Basophils # (Auto) 0.1 x10^3/uL (0.0-0.2) Potassium Level 2.6 mmol/L (3.5-5.1) Chloride Level 97 mmol/L (98-107) Carbon Dioxide Level 25 mmol/L (21-32) Anion Gap 10 (6-14) Blood Urea Nitrogen 6 mg/dL (7-20) Creatinine 0.7 mg/dL (0.6-1.0) Estimated GFR (Cockcroft-Gault) 84.2 Glucose Level 99 mg/dL (70-99) Calcium Level 8.9 mg/dL (8.5-10.1) Magnesium Level 1.8 mg/dL (1.8-2.4) Microbiology 12/24/17 Blood Culture - Preliminary, Resulted NO GROWTH AFTER 1 DAY Medications Current Medications Lorazepam (Ativan) 2 mg STK-MED ONCE .ROUTE ; Start 12/23/17 at 23:16; Stop at 23:17; Status DC Lorazepam (Ativan) 1 mg 1X ONCE IV Last administered on 12/23/17at 23:45; Start 12/23/17 at 23:45; Stop 12/23/17 at 23:46; Status DC Levetiracetam 1000 mg/Dextrose 110 ml @ 440 mls/hr 1X ONCE IV Last administered on 12/23/17at 23:45; Start 12/23/17 at 23:45; Stop 12/23/17 at 23 :59; Status DC Sodium Chloride 500 ml @ 30 mls/hr 1X ONCE IV Last administered on at 01:00; Start 12/24/17 at 01:00; Stop 12/24/17 at 17:39; Status DC Sodium Chloride 500 ml @ 30 mls/hr 1X STAT IV ; Start 12/24/17 at 00:21; Stop 12/24/17 at 17:00; Status UNV Sodium Chloride 500 ml @ 50 mls/hr 1X ONCE IV ; Start 12/24/17 at 00:30; Stop 12/24/17 at 10:29; Status UNV Potassium Chloride/Sodium Chloride 1,000 ml @ 75 mls/hr 1X ONCE IV Last administered on 12/24/17at 01:00; Start 12/24/17 at 01:00; Stop 12/24/17 at 14 :19; Status DC Sodium Chloride 500 ml @ 30 mls/hr 1X ONCE IV Last administered on at 04:00; Start 12/24/17 at 04:00; Stop 12/24/17 at 20:39; Status DC Sodium Chloride 500 ml @ 50 mls/hr 1X ONCE IV ; Start 12/24/17 at 03:45; Stop 12/24/17 at 13:44; Status UNV Acetaminophen (Tylenol) 500 mg PRN Q6HRS PRN PO MILD PAIN / TEMP; Start at 09:45; Status Cancel Ondansetron HCl (Zofran) 4 mg PRN Q6HRS PRN IV NAUSEA/VOMITING; Start at 09:45 Ondansetron HCl (Zofran Odt) 4 mg PRN Q6HRS PRN PO NAUSEA/VOMITING; Start 03/01 at 09:45; Status Cancel Lorazepam (Ativan) 2 mg PRN Q4HRS PRN IV sz Last administered on 12/25/17at 09: 30; Start 12/24/17 at 09:45 Potassium Chloride 30 meq/ Sodium Chloride 1,015 ml @ 75 mls/hr 1X ONCE IV Last administered on 12/24/17at 13:00; Start 12/24/17 at 13:00; Stop 12/25/17 at 02:31; Status DC Acetaminophen (Tylenol) 325 mg PRN Q4HRS PRN PO HEADACHE / TEMP; Start at 13:15 Clonidine HCl (Catapres) 0.1 mg PRN BID PRN PO SBP>160 Last administered on at 08:28; Start 12/24/17 at 13:15 Metoprolol Tartrate (Lopressor) 50 mg BID PO Last administered on 12/25/17at 08 :28; Start 12/24/17 at 14:00 Fish Oil (Fish Oil) 1 mg DAILY PO ; Start 12/24/17 at 14:00 Ondansetron HCl (Zofran Odt) 4 mg PRN Q6HRS PRN PO NAUSEA/VOMITING 1ST CHOICE; Start 12/24/17 at 13:15 Polyethylene Glycol (miraLAX PACKET) 17 gm PRN DAILY PRN PO CONSTIPATION 1ST CHOICE; Start 12/24/17 at 14:00 Vitamin D (Vitamin D3) 5,000 unit DAILY PO Last administered on 12/25/17at 08: 29; Start 12/24/17 at 14:00 Ibuprofen (Motrin) 600 mg PRN Q6HRS PRN PO INFLAMMATION; Start 12/24/17 at 13: 45 Oxycodone HCl (Roxicodone) 5 mg PRN TID PRN PO PAIN Last administered on at 08:38; Start 12/24/17 at 13:45; Stop 12/25/17 at 12:47; Status DC Promethazine HCl (Phenergan) 25 mg PRN Q6HRS PRN PO NAUSEA/VOMITING, 2ND CHOICE ; Start 12/24/17 at 13:45 Phenazopyridine HCl (Pyridium) 200 mg PRN TID PRN PO URINARY PAIN Last administered on 12/24/17at 18:24; Start 12/24/17 at 16:15 Labetalol HCl (Normodyne Iv Push) 20 mg 1X ONCE IVP Last administered on 12/25at 05:37; Start 12/25/17 at 06:00; Stop 12/25/17 at 06:01; Status DC Potassium Chloride/Sodium Chloride 1,000 ml @ 250 mls/hr Q4H IV Last administered on 12/25/17at 08:28; Start 12/25/17 at 07:30; Stop 12/25/17 at 11 :29; Status DC Potassium Chloride (Klor-Con) 40 meq 1X ONCE PO Last administered on at 12:49; Start 12/25/17 at 12:00; Stop 12/25/17 at 12:01; Status DC Potassium Chloride (Klor-Con) 20 meq 1X ONCE PO Last administered on at 12:48; Start 12/25/17 at 12:00; Stop 12/25/17 at 12:01; Status DC Potassium Chloride (Klor-Con) 40 meq BIDWMEALS PO ; Start 12/25/17 at 17:00 Oxycodone HCl (Roxicodone) 10 mg PRN TID PRN PO SEVERE PAIN; Start 12/25/17 at 13:00 Oxycodone/ Acetaminophen (Percocet 10/325) 1 tab PRN Q4HRS PRN PO MODERATE PAIN ; Start 12/25/17 at 13:00 Clonazepam (KlonoPIN) 0.5 mg BID PO ; Start 12/25/17 at 13:00 Duloxetine HCl (Cymbalta) 30 mg BID PO ; Start 12/25/17 at 13:00 Active Scripts Active Ondansetron Odt (Ondansetron) 4 Mg Tab.rapdis 1 Tab PO PRN Q6-8HRS Reported Cymbalta (Duloxetine Hcl) 30 Mg Capsule.dr 30 Mg PO BID Clonazepam 0.5 Mg Tablet 1 Tab PO BID Zolpidem Tartrate 5 Mg Tablet 5 Mg PO PRN QHS PRN Fluticasone Propionate Nasal [place] (Fluticasone Propionate) 16 Gm [place].susp 2 [place] NS DAILY PRN Fish Oil 1,000 Mg Capsule ([place]-3 Fatty Acids/Fish Oil) 1 Each Capsule 1 Each PO Vitamin D3 (Cholecalciferol (Vitamin D3)) 5,000 Unit Tablet 1 Tab PO DAILY Oxycodone Hcl 5 Mg Capsule 1 Cap PO TID PRN Ibuprofen 600 Mg Tablet 600 Mg PO PRN Q6HRS PRN Clonidine Hcl 0.1 Mg Tablet 0.1 Mg PO BID PRN Tylenol (Acetaminophen) 325 Mg Tablet 1 Tab PO PRN Q4HRS Promethazine Hcl 25 Mg Tablet 1 Tab PO PRN Q6HRS Polyethylene Glycol 3350 255 Gm Powder 17 Gm PO DAILY PRN Metoprolol Tartrate 50 Mg Tablet 1 Tab PO BID Vitals/I & O Vital Sign - Last 24 Hours 12/24/17 12/24/17 12/24/17 12/24/17 15:00 16:00 16:00 17:00 Temp 98.0 98.0 Pulse 78 78 78 Resp 20 20 20 B/P (MAP) 122/78 (93) 133/78 (96) 119/72 (88) Pulse Ox 95 95 95 O2 Delivery Room Air Room Air Room Air Room Air 12/24/17 12/24/17 12/24/17 12/24/17 17:56 20:03 20:08 20:11 Temp 100.0 100.0 Pulse 83 98 Resp 20 20 18 B/P (MAP) 137/70 (92) 142/59 (86) Pulse Ox 95 95 O2 Delivery Room Air Room Air Room Air 12/24/17 12/24/17 12/24/17 12/24/17 21:03 21:09 22:16 23:26 Temp 100.4 100.4 Pulse 85 85 98 70 Resp 16 20 20 B/P (MAP) 135/65 (88) 135/65 138/60 (86) 142/54 (83) Pulse Ox 93 95 95 O2 Delivery Room Air Room Air Room Air 12/25/17 12/25/17 12/25/17 12/25/17 00:01 01:04 02:01 03:36 Temp 98.4 98.4 Pulse 67 69 90 Resp 18 18 B/P (MAP) 136/52 (80) 136/52 (80) 177/69 (105) Pulse Ox 94 94 97 O2 Delivery Room Air Room Air Room Air Room Air O2 Flow Rate 4.0 12/25/17 12/25/17 12/25/17 12/25/17 04:06 04:08 05:07 05:37 Temp 98.5 99.9 98.5 99.9 Pulse 88 87 72 Resp 20 20 B/P (MAP) 174/78 (110) 195/68 (110) 195/68 Pulse Ox 92 95 O2 Delivery Room Air Room Air Room Air O2 Flow Rate 4.0 12/25/17 12/25/17 12/25/17 12/25/17 06:10 07:00 08:00 08:00 Temp 99.0 99.0 Pulse 79 84 67 Resp 20 20 18 B/P (MAP) 148/87 (107) 149/98 (115) 148/55 (86) Pulse Ox 93 95 95 O2 Delivery Room Air Room Air Room Air Room Air O2 Flow Rate 4.0 12/25/17 12/25/17 12/25/17 12/25/17 08:28 08:28 08:38 09:00 Pulse 83 85 68 Resp 18 B/P (MAP) 189/111 189/111 148/55 (86) Pulse Ox 95 96 O2 Delivery Room Air Room Air O2 Flow Rate 4.0 12/25/17 12/25/17 12/25/17 10:09 10:13 11:00 Temp 99.0 98.0 99.0 98.0 Pulse 67 80 Resp 18 24 B/P (MAP) 106/42 (63) 102/39 (60) Pulse Ox 96 97 93 O2 Delivery Room Air Room Air Room Air O2 Flow Rate 4.0 Intake and Output 12/24/17 12/24/17 12/25/17 15:00 23:00 07:00 Intake Total 1365 ml 70 ml Output Total 1850 ml 560 ml 275 ml Balance -1850 ml 805 ml -205 ml STERLING SÁNCHEZ MD Dec 25, 2017 14:06
--- NOTE | 2017-12-25 14:45 | PDOC ---
PROGRESS NOTES Assessment Problems Medical Problems: (1) Hypokalemia Status: Acute (2) Hyponatremia Status: Acute (3) Rhabdomyolysis Status: Acute (4) Seizure Status: Acute Seizure due to severe hyponatremia. Plan I am holding on additional workup such as MRI and EEG given obvious provocative factor of the hyponatremia. I am also holding off on anticonvulsants. Renal service is managing the hyponatremia. Discussed with patient and her Subjective no complaints Objective Vital Signs Date Time Temp Pulse Resp B/P (MAP) Pulse Ox O2 Delivery O2 Flow Rate FiO2 12/25/17 14:05 93 Room Air 4.0 12/25/17 14:00 64 105/43 (63) 12/25/17 13:00 18 12/25/17 11:00 98.0 98.0 Intake and Output 12/25/17 07:00 Intake Total 1435 ml Output Total 2685 ml Balance -1250 ml Intake Oral 120 ml IV Total 1315 ml Output Urine Total 2685 ml PHYSICAL EXAM Physical Exam: Alert. Oriented to time, place and person. PERRL. EOMI. CN: no focal findings. Muscle tone: normal. Muscle strength: left shoulder sling, right elbow cast, 5/5 otherwise DTR: 2+ Plantar reflex: flexor Gait: not examined in bed. Sensory exam: no abnormal findings. No cerebellar signs elicited. Review of Relevant I have reviewed the following items yariel (where applicable) has been applied. Labs Laboratory Tests Test 12/23/17 23:10 12/23/17 23:27 12/23/17 23:30 12/24/17 01:00 Glucose (Fingerstick) 168 mg/dL (70-99) Urine Collection Type U cath Urine Color Yellow Urine Clarity Clear Urine pH 6.5 Urine Specific [place] 1.020 Urine Protein >=300 mg/dL (NEG-TRACE) Urine Glucose (UA) 100 mg/dL (NEG) Urine Ketones (Stick) >=80 mg/dL (NEG) Urine Blood Large (NEG) Urine Nitrite Negative (NEG) Urine Bilirubin Negative (NEG) Urine Urobilinogen Dipstick 0.2 mg/dL (0.2 mg/dL) Urine Leukocyte Esterase Negative (NEG) Urine RBC 6-10 /HPF (0-2) Urine WBC 1-4 /HPF (0-4) Urine Squamous Epithelial Cells Few /LPF Urine Bacteria 0 /HPF (0-FEW) Urine Opiates Screen Pos (NEG) Urine Methadone Screen Neg (NEG) Urine Barbiturates Neg (NEG) Urine Phencyclidine Screen Neg (NEG) Urine Amphetamine/Methamphetamine Neg (NEG) Urine Benzodiazepines Screen Neg (NEG) Urine Cocaine Screen Neg (NEG) Urine Cannabinoids Screen Neg (NEG) Urine Ethyl Alcohol Neg (NEG) White Blood Count 19.9 x10^3/uL (4.0-11.0) Red Blood Count 5.07 x10^6/uL (3.50-5.40) Hemoglobin 15.5 g/dL (12.0-15.5) Hematocrit 43.3 % (36.0-47.0) Mean Corpuscular Volume 85 fL (79-100) Mean Corpuscular Hemoglobin 31 pg (25-35) Mean Corpuscular Hemoglobin Concent 36 g/dL (31-37) Red Cell Distribution Width 12.8 % (11.5-14.5) Platelet Count 463 x10^3/uL (140-400) Neutrophils (%) (Auto) 79 % (31-73) Lymphocytes (%) (Auto) 12 % (24-48) Monocytes (%) (Auto) 8 % (0-9) Eosinophils (%) (Auto) 0 % (0-3) Basophils (%) (Auto) 0 % (0-3) Neutrophils # (Auto) 15.7 x10^3uL (1.8-7.7) Lymphocytes # (Auto) 2.5 x10^3/uL (1.0-4.8) Monocytes # (Auto) 1.7 x10^3/uL (0.0-1.1) Eosinophils # (Auto) 0.0 x10^3/uL (0.0-0.7) Basophils # (Auto) 0.1 x10^3/uL (0.0-0.2) Segmented Neutrophils % 81 % (35-66) Lymphocytes % 9 % (24-48) Monocytes % 10 % (0-10) Platelet Estimate Increased (ADEQUATE) Sodium Level 108 mmol/L (136-145) Potassium Level 2.6 mmol/L (3.5-5.1) Chloride Level 69 mmol/L (98-107) Carbon Dioxide Level 21 mmol/L (21-32) Anion Gap 18 (6-14) Blood Urea Nitrogen 7 mg/dL (7-20) Creatinine 1.0 mg/dL (0.6-1.0) Estimated GFR (Cockcroft-Gault) 55.8 BUN/Creatinine Ratio 7 (6-20) Glucose Level 164 mg/dL (70-99) Calcium Level 8.8 mg/dL (8.5-10.1) Total Bilirubin 1.2 mg/dL (0.2-1.0) Aspartate Amino Transf (AST/SGOT) 98 U/L (15-37) Alanine Aminotransferase (ALT/SGPT) 80 U/L (14-59) Alkaline Phosphatase 152 U/L (46-116) Creatine Kinase 2797 U/L (26-192) Troponin I Quantitative < 0.017 ng/mL (0.000-0.055) Total Protein 7.7 g/dL (6.4-8.2) Albumin 4.1 g/dL (3.4-5.0) Albumin/Globulin Ratio 1.1 (1.0-1.7) Salicylates Level < 2.8 mg/dL (2.8-20.0) Salicylate Last Dose Date Unknown Salicylate Last Dose Time Unknown Acetaminophen Level < 2 mcg/ml (10-30) Acetaminophen Last Dose Date Unknown Acetaminophen Last Dose Time Unknown [place] Level 1.1 mmol/L (0.6-1.2) [place] Last Dose Date 12/23/17 [place] Last Dose Time 0000 Ethyl Alcohol Level < 10 mg/dL (0-10) Thyroid Stimulating Hormone (TSH) 1.571 uIU/mL (0.358-3.74) Cortisol AM Sample 70.0 ug/dL (4.3-22.4) Test 12/24/17 01:30 12/24/17 03:10 12/24/17 03:14 12/24/17 04:40 Sodium Level 104 mmol/L (136-145) Potassium Level 2.8 mmol/L (3.5-5.1) Chloride Level 72 mmol/L (98-107) Carbon Dioxide Level 20 mmol/L (21-32) Anion Gap 12 (6-14) 15 mmol/L (6-14) Blood Urea Nitrogen 7 mg/dL (7-20) Creatinine 0.4 mg/dL (0.6-1.0) Estimated GFR (Cockcroft-Gault) 160.7 Glucose Level 167 mg/dL (70-99) 127 mg/dL (70-99) Calcium Level 8.5 mg/dL (8.5-10.1) Lactic Acid Level 0.9 mmol/L (0.4-2.0) Bedside Hemoglobin 12.9 g/dL (12-15) Bedside Hematocrit 38 % (36-40) Bedside Sodium 107 mmol/L (135-145) Bedside Potassium 3.1 mmol/L (3.5-5.0) Bedside Chloride 69 mmol/L (98-110) Bedside Total CO2 27 mmol/L (23-32) Bedside Blood Urea Nitrogen 5 mg/dL (8-26) Bedside Creatinine 0.5 mg/dL (0.5-1.4) Bedside Ionized Calcium ([place]) 1.02 mmol/L (1.13-1.32) Nasal Screen MRSA (PCR) Negative (Negative) Test 12/24/17 09:10 12/24/17 11:39 12/24/17 12:40 12/25/17 00:30 White Blood Count 14.3 x10^3/uL (4.0-11.0) Red Blood Count 4.50 x10^6/uL (3.50-5.40) Hemoglobin 13.6 g/dL (12.0-15.5) Hematocrit 38.3 % (36.0-47.0) Mean Corpuscular Volume 85 fL (79-100) Mean Corpuscular Hemoglobin 30 pg (25-35) Mean Corpuscular Hemoglobin Concent 36 g/dL (31-37) Red Cell Distribution Width 12.9 % (11.5-14.5) Platelet Count 307 x10^3/uL (140-400) Neutrophils (%) (Auto) 85 % (31-73) Lymphocytes (%) (Auto) 5 % (24-48) Monocytes (%) (Auto) 10 % (0-9) Eosinophils (%) (Auto) 0 % (0-3) Basophils (%) (Auto) 0 % (0-3) Neutrophils # (Auto) 12.1 x10^3uL (1.8-7.7) Lymphocytes # (Auto) 0.7 x10^3/uL (1.0-4.8) Monocytes # (Auto) 1.4 x10^3/uL (0.0-1.1) Eosinophils # (Auto) 0.0 x10^3/uL (0.0-0.7) Basophils # (Auto) 0.0 x10^3/uL (0.0-0.2) Sodium Level 124 mmol/L (136-145) 129 mmol/L (136-145) 127 mmol/L (136-145) Potassium Level 3.1 mmol/L (3.5-5.1) 3.4 mmol/L (3.5-5.1) Chloride Level 87 mmol/L (98-107) 94 mmol/L (98-107) Carbon Dioxide Level 28 mmol/L (21-32) 25 mmol/L (21-32) Anion Gap 9 (6-14) 10 (6-14) Blood Urea Nitrogen 5 mg/dL (7-20) 4 mg/dL (7-20) Creatinine 0.5 mg/dL (0.6-1.0) 0.6 mg/dL (0.6-1.0) Estimated GFR (Cockcroft-Gault) 124.2 100.6 Glucose Level 102 mg/dL (70-99) 100 mg/dL (70-99) Calcium Level 8.5 mg/dL (8.5-10.1) 8.7 mg/dL (8.5-10.1) Phosphorus Level 2.6 mg/dL (2.6-4.7) Magnesium Level 1.9 mg/dL (1.8-2.4) Urine Sodium <60 mmol/L (Not Estab.) Urine Potassium 5.1 mmol/L (Not Estab.) Urine Chloride <60 mmol/L (Not Estab.) BUN/Creatinine Ratio 7 (6-20) Total Bilirubin 0.7 mg/dL (0.2-1.0) Aspartate Amino Transf (AST/SGOT) 53 U/L (15-37) Alanine Aminotransferase (ALT/SGPT) 55 U/L (14-59) Alkaline Phosphatase 107 U/L (46-116) Total Protein 5.6 g/dL (6.4-8.2) Albumin 2.9 g/dL (3.4-5.0) Albumin/Globulin Ratio 1.1 (1.0-1.7) Test 12/25/17 06:00 White Blood Count 10.2 x10^3/uL (4.0-11.0) Red Blood Count 4.07 x10^6/uL (3.50-5.40) Hemoglobin 12.8 g/dL (12.0-15.5) Hematocrit 35.3 % (36.0-47.0) Mean Corpuscular Volume 87 fL (79-100) Mean Corpuscular Hemoglobin 32 pg (25-35) Mean Corpuscular Hemoglobin Concent 36 g/dL (31-37) Red Cell Distribution Width 12.8 % (11.5-14.5) Platelet Count 302 x10^3/uL (140-400) Neutrophils (%) (Auto) 78 % (31-73) Lymphocytes (%) (Auto) 12 % (24-48) Monocytes (%) (Auto) 10 % (0-9) Eosinophils (%) (Auto) 0 % (0-3) Basophils (%) (Auto) 1 % (0-3) Neutrophils # (Auto) 8.0 x10^3uL (1.8-7.7) Lymphocytes # (Auto) 1.2 x10^3/uL (1.0-4.8) Monocytes # (Auto) 1.0 x10^3/uL (0.0-1.1) Eosinophils # (Auto) 0.0 x10^3/uL (0.0-0.7) Basophils # (Auto) 0.1 x10^3/uL (0.0-0.2) Sodium Level 132 mmol/L (136-145) Potassium Level 2.6 mmol/L (3.5-5.1) Chloride Level 97 mmol/L (98-107) Carbon Dioxide Level 25 mmol/L (21-32) Anion Gap 10 (6-14) Blood Urea Nitrogen 6 mg/dL (7-20) Creatinine 0.7 mg/dL (0.6-1.0) Estimated GFR (Cockcroft-Gault) 84.2 Glucose Level 99 mg/dL (70-99) Calcium Level 8.9 mg/dL (8.5-10.1) Magnesium Level 1.8 mg/dL (1.8-2.4) Laboratory Tests Test 12/25/17 00:30 12/25/17 06:00 Sodium Level 127 mmol/L (136-145) 132 mmol/L (136-145) White Blood Count 10.2 x10^3/uL (4.0-11.0) Red Blood Count 4.07 x10^6/uL (3.50-5.40) Hemoglobin 12.8 g/dL (12.0-15.5) Hematocrit 35.3 % (36.0-47.0) Mean Corpuscular Volume 87 fL (79-100) Mean Corpuscular Hemoglobin 32 pg (25-35) Mean Corpuscular Hemoglobin Concent 36 g/dL (31-37) Red Cell Distribution Width 12.8 % (11.5-14.5) Platelet Count 302 x10^3/uL (140-400) Neutrophils (%) (Auto) 78 % (31-73) Lymphocytes (%) (Auto) 12 % (24-48) Monocytes (%) (Auto) 10 % (0-9) Eosinophils (%) (Auto) 0 % (0-3) Basophils (%) (Auto) 1 % (0-3) Neutrophils # (Auto) 8.0 x10^3uL (1.8-7.7) Lymphocytes # (Auto) 1.2 x10^3/uL (1.0-4.8) Monocytes # (Auto) 1.0 x10^3/uL (0.0-1.1) Eosinophils # (Auto) 0.0 x10^3/uL (0.0-0.7) Basophils # (Auto) 0.1 x10^3/uL (0.0-0.2) Potassium Level 2.6 mmol/L (3.5-5.1) Chloride Level 97 mmol/L (98-107) Carbon Dioxide Level 25 mmol/L (21-32) Anion Gap 10 (6-14) Blood Urea Nitrogen 6 mg/dL (7-20) Creatinine 0.7 mg/dL (0.6-1.0) Estimated GFR (Cockcroft-Gault) 84.2 Glucose Level 99 mg/dL (70-99) Calcium Level 8.9 mg/dL (8.5-10.1) Magnesium Level 1.8 mg/dL (1.8-2.4) Microbiology 12/24/17 Blood Culture - Preliminary, Resulted NO GROWTH AFTER 1 DAY Medications Current Medications Lorazepam (Ativan) 2 mg STK-MED ONCE .ROUTE ; Start 12/23/17 at 23:16; Stop at 23:17; Status DC Lorazepam (Ativan) 1 mg 1X ONCE IV Last administered on 12/23/17at 23:45; Start 12/23/17 at 23:45; Stop 12/23/17 at 23:46; Status DC Levetiracetam 1000 mg/Dextrose 110 ml @ 440 mls/hr 1X ONCE IV Last administered on 12/23/17at 23:45; Start 12/23/17 at 23:45; Stop 12/23/17 at 23 :59; Status DC Sodium Chloride 500 ml @ 30 mls/hr 1X ONCE IV Last administered on at 01:00; Start 12/24/17 at 01:00; Stop 12/24/17 at 17:39; Status DC Sodium Chloride 500 ml @ 30 mls/hr 1X STAT IV ; Start 12/24/17 at 00:21; Stop 12/24/17 at 17:00; Status UNV Sodium Chloride 500 ml @ 50 mls/hr 1X ONCE IV ; Start 12/24/17 at 00:30; Stop 12/24/17 at 10:29; Status UNV Potassium Chloride/Sodium Chloride 1,000 ml @ 75 mls/hr 1X ONCE IV Last administered on 12/24/17at 01:00; Start 12/24/17 at 01:00; Stop 12/24/17 at 14 :19; Status DC Sodium Chloride 500 ml @ 30 mls/hr 1X ONCE IV Last administered on at 04:00; Start 12/24/17 at 04:00; Stop 12/24/17 at 20:39; Status DC Sodium Chloride 500 ml @ 50 mls/hr 1X ONCE IV ; Start 12/24/17 at 03:45; Stop 12/24/17 at 13:44; Status UNV Acetaminophen (Tylenol) 500 mg PRN Q6HRS PRN PO MILD PAIN / TEMP; Start at 09:45; Status Cancel Ondansetron HCl (Zofran) 4 mg PRN Q6HRS PRN IV NAUSEA/VOMITING; Start at 09:45 Ondansetron HCl (Zofran Odt) 4 mg PRN Q6HRS PRN PO NAUSEA/VOMITING; Start 03/01 at 09:45; Status Cancel Lorazepam (Ativan) 2 mg PRN Q4HRS PRN IV sz Last administered on 12/25/17at 09: 30; Start 12/24/17 at 09:45 Potassium Chloride 30 meq/ Sodium Chloride 1,015 ml @ 75 mls/hr 1X ONCE IV Last administered on 12/24/17at 13:00; Start 12/24/17 at 13:00; Stop 12/25/17 at 02:31; Status DC Acetaminophen (Tylenol) 325 mg PRN Q4HRS PRN PO HEADACHE / TEMP; Start at 13:15 Clonidine HCl (Catapres) 0.1 mg PRN BID PRN PO SBP>160 Last administered on at 08:28; Start 12/24/17 at 13:15 Metoprolol Tartrate (Lopressor) 50 mg BID PO Last administered on 12/25/17at 08 :28; Start 12/24/17 at 14:00 Fish Oil (Fish Oil) 1 mg DAILY PO ; Start 12/24/17 at 14:00 Ondansetron HCl (Zofran Odt) 4 mg PRN Q6HRS PRN PO NAUSEA/VOMITING 1ST CHOICE; Start 12/24/17 at 13:15 Polyethylene Glycol (miraLAX PACKET) 17 gm PRN DAILY PRN PO CONSTIPATION 1ST CHOICE; Start 12/24/17 at 14:00 Vitamin D (Vitamin D3) 5,000 unit DAILY PO Last administered on 12/25/17at 08: 29; Start 12/24/17 at 14:00 Ibuprofen (Motrin) 600 mg PRN Q6HRS PRN PO INFLAMMATION; Start 12/24/17 at 13: 45 Oxycodone HCl (Roxicodone) 5 mg PRN TID PRN PO PAIN Last administered on at 08:38; Start 12/24/17 at 13:45; Stop 12/25/17 at 12:47; Status DC Promethazine HCl (Phenergan) 25 mg PRN Q6HRS PRN PO NAUSEA/VOMITING, 2ND CHOICE ; Start 12/24/17 at 13:45 Phenazopyridine HCl (Pyridium) 200 mg PRN TID PRN PO URINARY PAIN Last administered on 12/24/17at 18:24; Start 12/24/17 at 16:15 Labetalol HCl (Normodyne Iv Push) 20 mg 1X ONCE IVP Last administered on 12/25at 05:37; Start 12/25/17 at 06:00; Stop 12/25/17 at 06:01; Status DC Potassium Chloride/Sodium Chloride 1,000 ml @ 250 mls/hr Q4H IV Last administered on 12/25/17at 08:28; Start 12/25/17 at 07:30; Stop 12/25/17 at 11 :29; Status DC Potassium Chloride (Klor-Con) 40 meq 1X ONCE PO Last administered on at 12:49; Start 12/25/17 at 12:00; Stop 12/25/17 at 12:01; Status DC Potassium Chloride (Klor-Con) 20 meq 1X ONCE PO Last administered on at 12:48; Start 12/25/17 at 12:00; Stop 12/25/17 at 12:01; Status DC Potassium Chloride (Klor-Con) 40 meq BIDWMEALS PO ; Start 12/25/17 at 17:00 Oxycodone HCl (Roxicodone) 10 mg PRN TID PRN PO SEVERE PAIN Last administered on 12/25/17at 14:05; Start 12/25/17 at 13:00 Oxycodone/ Acetaminophen (Percocet 10/325) 1 tab PRN Q4HRS PRN PO MODERATE PAIN ; Start 12/25/17 at 13:00 Clonazepam (KlonoPIN) 0.5 mg BID PO Last administered on 12/25/17at 14:05; Start 12/25/17 at 13:00 Duloxetine HCl (Cymbalta) 30 mg BID PO Last administered on 12/25/17at 14:05; Start 12/25/17 at 13:00 Active Scripts Active Ondansetron Odt (Ondansetron) 4 Mg Tab.rapdis 1 Tab PO PRN Q6-8HRS Reported Cymbalta (Duloxetine Hcl) 30 Mg Capsule.dr 30 Mg PO BID Clonazepam 0.5 Mg Tablet 1 Tab PO BID Zolpidem Tartrate 5 Mg Tablet 5 Mg PO PRN QHS PRN Fluticasone Propionate Nasal [place] (Fluticasone Propionate) 16 Gm [place].susp 2 [place] NS DAILY PRN Fish Oil 1,000 Mg Capsule ([place]-3 Fatty Acids/Fish Oil) 1 Each Capsule 1 Each PO Vitamin D3 (Cholecalciferol (Vitamin D3)) 5,000 Unit Tablet 1 Tab PO DAILY Oxycodone Hcl 5 Mg Capsule 1 Cap PO TID PRN Ibuprofen 600 Mg Tablet 600 Mg PO PRN Q6HRS PRN Clonidine Hcl 0.1 Mg Tablet 0.1 Mg PO BID PRN Tylenol (Acetaminophen) 325 Mg Tablet 1 Tab PO PRN Q4HRS Promethazine Hcl 25 Mg Tablet 1 Tab PO PRN Q6HRS Polyethylene Glycol 3350 255 Gm Powder 17 Gm PO DAILY PRN Metoprolol Tartrate 50 Mg Tablet 1 Tab PO BID Vitals/I & O Vital Sign - Last 24 Hours 12/24/17 12/24/17 12/24/17 12/24/17 15:00 16:00 16:00 17:00 Temp 98.0 98.0 Pulse 78 78 78 Resp 20 20 20 B/P (MAP) 122/78 (93) 133/78 (96) 119/72 (88) Pulse Ox 95 95 95 O2 Delivery Room Air Room Air Room Air Room Air 12/24/17 12/24/17 12/24/17 12/24/17 17:56 20:03 20:08 20:11 Temp 100.0 100.0 Pulse 83 98 Resp 20 20 18 B/P (MAP) 137/70 (92) 142/59 (86) Pulse Ox 95 95 O2 Delivery Room Air Room Air Room Air 12/24/17 12/24/17 12/24/17 12/24/17 21:03 21:09 22:16 23:26 Temp 100.4 100.4 Pulse 85 85 98 70 Resp 16 20 20 B/P (MAP) 135/65 (88) 135/65 138/60 (86) 142/54 (83) Pulse Ox 93 95 95 O2 Delivery Room Air Room Air Room Air 12/25/17 12/25/17 12/25/17 12/25/17 00:01 01:04 02:01 03:36 Temp 98.4 98.4 Pulse 67 69 90 Resp 18 18 B/P (MAP) 136/52 (80) 136/52 (80) 177/69 (105) Pulse Ox 94 94 97 O2 Delivery Room Air Room Air Room Air Room Air O2 Flow Rate 4.0 12/25/17 12/25/17 12/25/17 12/25/17 04:06 04:08 05:07 05:37 Temp 98.5 99.9 98.5 99.9 Pulse 88 87 72 Resp 20 20 B/P (MAP) 174/78 (110) 195/68 (110) 195/68 Pulse Ox 92 95 O2 Delivery Room Air Room Air Room Air O2 Flow Rate 4.0 12/25/17 12/25/17 12/25/17 12/25/17 06:10 07:00 08:00 08:00 Temp 99.0 99.0 Pulse 79 84 67 Resp 20 20 18 B/P (MAP) 148/87 (107) 149/98 (115) 148/55 (86) Pulse Ox 93 95 95 O2 Delivery Room Air Room Air Room Air Room Air O2 Flow Rate 4.0 12/25/17 12/25/17 12/25/17 12/25/17 08:28 08:28 08:38 09:00 Pulse 83 85 68 Resp 18 B/P (MAP) 189/111 189/111 148/55 (86) Pulse Ox 95 96 O2 Delivery Room Air Room Air O2 Flow Rate 4.0 12/25/17 12/25/17 12/25/17 12/25/17 10:09 10:13 11:00 12:00 Temp 99.0 98.0 99.0 98.0 Pulse 67 80 80 Resp 18 24 18 B/P (MAP) 106/42 (63) 102/39 (60) 147/60 (89) Pulse Ox 96 97 93 93 O2 Delivery Room Air Room Air Room Air Room Air O2 Flow Rate 4.0 4.0 12/25/17 12/25/17 12/25/17 12/25/17 12:00 13:00 14:00 14:05 Pulse 78 64 Resp 18 B/P (MAP) 120/70 (87) 105/43 (63) Pulse Ox 93 93 93 O2 Delivery Room Air Room Air Room Air Room Air O2 Flow Rate 4.0 4.0 4.0 4.0 Intake and Output 12/24/17 12/24/17 12/25/17 15:00 23:00 07:00 Intake Total 1365 ml 70 ml Output Total 1850 ml 560 ml 275 ml Balance -1850 ml 805 ml -205 ml JONAH MACIEL MD Dec 25, 2017 14:45
[2017-12-25] MEDS ORDERED: POTASSIUM CHLORIDE 20 MEQ TABLET.ER. PO SCH (17:00)
[2017-12-25] MEDS: NICOTINE 21MG PATCH. TD SCH (18:33)
[2017-12-25] MEDS: LIDOCAINE (700MG/PATCH) PATCH. TD SCH (18:33)
[2017-12-25] MEDS: ONDANSETRON ODT 4 MG TAB.RAPDIS. PO PRN (20:11)
[2017-12-25] MEDS: PATCH REMOVAL. MC SCH (20:14)
[2017-12-25] MEDS: TEMAZEPAM 15 MG CAPSULE PO PRN (21:52)
[2017-12-26] MEDS: oxyCODONE/APAP 10/325 1 TAB TABLET PO PRN (02:37)
[2017-12-26 03:00] VITALS: BP 186/78
[2017-12-26 05:39] LABS: CREATININE 0.7 mg/dL (0.6-1.0); GFR 84.2; POTASSIUM 4.5 mmol/L (3.5-5.1)
--- NOTE | 2017-12-26 06:06 | CONS ---
DATE OF CONSULTATION: 12/25/2017 REQUESTING PHYSICIAN: Padmini Canada MD REASON FOR CONSULTATION: Right elbow fracture and "needs left shoulder fixed." HISTORY OF PRESENT ILLNESS: The patient is a 62-year-old female who was seen initially for right elbow fracture and was about to be discharged home, but had a witnessed seizure at the emergency department, apparently generalized tonic-clonic with loss of consciousness. She is admitted to the intensive care unit after treatment with Keppra and had had a splint applied to right radial head fracture. I had also spoken to the patient and her in detail about her left shoulder issues, which basically stem from an injury where she had fallen off a horse in 2007 near [place], [place] and underwent operative reduction and fixation of an open humerus fracture. She subsequently developed nonunion and still had difficulties with use of the shoulder. Subsequently, apparently had followed more locally with Dr. Francisco and a few operations later, underwent some hardware removal and was noted to have nonunion and some resorption of her bone in the proximal humeral shaft area. This was thought to be due to Lyme's disease that the bone resorbed and everything fell apart. She was apparently considering the possibility of implantation of a reverse shoulder arthroplasty back by Dr. Francisco in January, but was delayed due to these neurologic and some psychiatry facility treatment. She has been chronically in a shoulder immobilizer for the left shoulder issues that have been longstanding ongoing in nature with significant pain on any motion of the shoulder. She really cannot lift it away from her side at all, although she can use it for fine motor use, again with her elbow at the side to eat. She is most limited by eating and other issues with the right elbow being splinted. PAST MEDICAL HISTORY: Significant for bipolar disorder and hypertension. Significant for Lyme's disease, for which she was diagnosed soon after the hospital stay with her surgery. PAST SURGICAL HISTORY: Multiple surgeries on the left shoulder following open fracture subsequent hardware removal. FAMILY HISTORY: Unknown. SOCIAL HISTORY: She is , accompanied by her . Denies smoking, alcohol or drug use. REVIEW OF SYSTEMS: Primarily due to the above. Apparently, the recent psych history includes an inpatient psychiatric evaluation for possible PTSD and bipolar, but they were considering a possible diagnosis of schizophrenia. She has had very severe hyponatremia on admission, which is now corrected better and mental status has likewise improved in the interim according to her , and the nursing staff. She is alert at this time. PHYSICAL EXAMINATION: GENERAL: A pleasant 62-year-old female, pleasant, conversational, alert, and oriented and she provides history that is also supplemented by her . EXTREMITIES: On examination of the right elbow, she is now examined out of her splint. She has slight tenderness over the radial head, but full pronation and supination. She has elbow flexion and extension about 90 degrees with no instability present. Normal examination of the right shoulder and wrist. Examination of left shoulder reveals an obvious scars from previous surgery and nonunion with gross motion around the area of the proximal humerus. Essentially no rotator cuff strength. Elbow and wrist are stable on the left side and she can grasp bilaterally. No sensory or motor deficit other than lack of strength in the left upper extremity. IMAGING: X-rays show a nondisplaced radial head fracture on the right. X-rays of left shoulder showed significant cut out of a plate and screw fixation superior to her humeral head. This was supplemented by films the was able to provide, which show significant bone loss in the metaphyseal area in the proximal humeral shaft and complete obvious nonunion again with hardware cut out in the humeral head area. IMPRESSION: 1. Nondisplaced right radial head fracture. 2. 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 TREATMENT PLAN: I went over with her and the patient that I would recommend that she use the right elbow gently. She was very relieved about this and was able to use it to feed herself. I told her certainly no heavy grasping, pushing or pulling, but I would have her do full pronation and supination several times a day, a little bit of gentle range of motion of the elbow in flexion and extension over comfortable arc. If she is having significant pain, she can certainly limit this and if she has any limitation of her pronation and supination suddenly, to let somebody know and we would get immediate x-rays. Regarding the situation with her left shoulder, she seems to be well set up with Dr. Francisco. It seems that the only real alternative in terms of reestablishing some function of her left shoulder would be a reverse shoulder arthroplasty. My major consideration with that would be ensuring that there is no infection present, as it is unclear the etiology of her bone loss. It was thought to be due to Lyme's disease. I obviously have no other access to her other records other than the history she and her are giving me at this time and my concern again with that some very extensive testing would have to be done before considering implantation of a large prosthesis that would span the area of bone loss and ensure there is no infection present. That may include be even testing for the typical organisms, as well as some atypicals, acid fast etc that may require, say, maybe a 2-stage process with hardware removal and extensive biopsy prior to implantation for example. I told her that one of the reasons I am talking with her about this is that Dr. Canada had indicated that she needs the shoulder fixed as well. I think it may be better to get her through these other issues, particularly the right elbow and make sure that is functional before going along with any extensive shoulder procedure that would need some protection and extensive rehabilitation. All her 's questions were answered at this time. I would probably see her back in about 2 weeks for repeat examination and x-rays of the right elbow or sooner if she has any sudden increase in pain or loss of motion. DAVID RODRIGUEZ MD DR: RADHA/jerry JOB#: [id number] / [id number]
[2017-12-26] MEDS: cloNIDine HCL 0.1 MG TABLET PO PRN (06:16)
[2017-12-26 07:00] VITALS: BP 149/69
[2017-12-26] MEDS: OMEGA-3 FATTY ACIDS/FISH OIL 1,000 MG CAPSULE. PO SCH (09:36)
[2017-12-26] MEDS: DULoxetine HCL 30 MG CAPSULE.DR PO SCH ×2 (09:36→20:50)
[2017-12-26] MEDS: CHOLECALCIFEROL (VITAMIN D3) 5,000 UNIT CAPSULE PO SCH (09:37)
[2017-12-26] MEDS: NICOTINE 21MG PATCH. TD SCH (09:37)
[2017-12-26] MEDS: METOPROLOL TART IMMED RELEASE 50 MG TABLET. PO SCH ×2 (09:37→20:51)
[2017-12-26] MEDS: LIDOCAINE (700MG/PATCH) PATCH. TD SCH (09:37)
--- NOTE | 2017-12-26 10:02 | PDOC ---
PROGRESS NOTES Chief Complaint Chief Complaint Critical hyponatremia with abrupt jump of Na on correction s/p hypertonic saline at ER-need to watch out for central pontine myelinolysis bec of the signif jump in Na History of bipolar/PTSD?-Recently discharged from inpatient psych 2 days ago Seizure in the hospital-new onset, witnessed Mild hypokalemia Reactive leukocytosis Normal TSH and cortisol Mild rhabdomyolysis Met encephalopathy secondary to above Left shoulder fx RT elbow fx History of Present Illness History of Present Illness Mentation continues to further improve day by day Not any more somnolent We were actually able to talk about pain medicines today She did not want to be back on her Valium which is great She was supposed to take Cymbalta but has not been taking since last summer-but does agree to be on it as per recs by her doctor outside of the hospital i [facility] extensive and informative note and patient will pleased and discussed at bedside [place] out today She is up in chair More importantly sodium HAs stopped increasing, status post hypertonic saline - sodium increased or jumpED to 24 points in 24 hours-there was a concern for central pontine myelinolysis Now sodium down to 130 from 132 which is good Potassium has been corrected to 4 from critical hypokalemia at 2 - NOW eating Plan Okay to transfer out of ICU PT OT recommended SNU and they are agreeable Social work on case- consulted last Wednesday Follow renal recommendations Home meds have I reconciled Discussed with family and FAMILY AND MARRIAGE COUNSELLOR Vitals Vitals Vital Signs Date Time Temp Pulse Resp B/P (MAP) Pulse Ox O2 Delivery O2 Flow Rate FiO2 12/26/17 09:37 71 149/69 12/26/17 07:45 Room Air 12/26/17 07:00 98.5 18 99 98.5 12/25/17 16:13 4.0 Physical Exam General: Alert, Cooperative Heart: Regular rate, Normal S1, Normal S2, No murmurs, Gallops Abdomen: Normal bowel sounds, Soft, No tenderness, No hepatosplenomegaly, No masses Extremities: No clubbing, No cyanosis, No edema, Normal pulses, No tenderness/ swelling Skin: No rashes, No breakdown, No significant lesion Labs LABS Laboratory Tests Test 12/26/17 04:45 Sodium Level 130 mmol/L (136-145) Potassium Level 4.5 mmol/L (3.5-5.1) Chloride Level 96 mmol/L (98-107) Carbon Dioxide Level 26 mmol/L (21-32) Anion Gap 8 (6-14) Blood Urea Nitrogen 5 mg/dL (7-20) Creatinine 0.7 mg/dL (0.6-1.0) Estimated GFR (Cockcroft-Gault) 84.2 Glucose Level 105 mg/dL (70-99) Calcium Level 9.0 mg/dL (8.5-10.1) Review of Systems Review of Systems Some nausea today, left shoulder pain chronic Right elbow pain from the fracture chronic Assessment and Plan Assessmemt and Plan Problems Medical Problems: (1) Hypokalemia Status: Acute (2) Hyponatremia Status: Acute (3) Rhabdomyolysis Status: Acute (4) Seizure Status: Acute Comment Review of Relevant I have reviewed the following items yariel (where applicable) has been applied. Labs Laboratory Tests Test 12/24/17 11:39 12/24/17 12:40 12/25/17 00:30 12/25/17 06:00 Urine Sodium <60 mmol/L (Not Estab.) Urine Potassium 5.1 mmol/L (Not Estab.) Urine Chloride <60 mmol/L (Not Estab.) Sodium Level 129 mmol/L (136-145) 127 mmol/L (136-145) 132 mmol/L (136-145) Potassium Level 3.4 mmol/L (3.5-5.1) 2.6 mmol/L (3.5-5.1) Chloride Level 94 mmol/L (98-107) 97 mmol/L (98-107) Carbon Dioxide Level 25 mmol/L (21-32) 25 mmol/L (21-32) Anion Gap 10 (6-14) 10 (6-14) Blood Urea Nitrogen 4 mg/dL (7-20) 6 mg/dL (7-20) Creatinine 0.6 mg/dL (0.6-1.0) 0.7 mg/dL (0.6-1.0) Estimated GFR (Cockcroft-Gault) 100.6 84.2 BUN/Creatinine Ratio 7 (6-20) Glucose Level 100 mg/dL (70-99) 99 mg/dL (70-99) Calcium Level 8.7 mg/dL (8.5-10.1) 8.9 mg/dL (8.5-10.1) Total Bilirubin 0.7 mg/dL (0.2-1.0) Aspartate Amino Transf (AST/SGOT) 53 U/L (15-37) Alanine Aminotransferase (ALT/SGPT) 55 U/L (14-59) Alkaline Phosphatase 107 U/L (46-116) Total Protein 5.6 g/dL (6.4-8.2) Albumin 2.9 g/dL (3.4-5.0) Albumin/Globulin Ratio 1.1 (1.0-1.7) White Blood Count 10.2 x10^3/uL (4.0-11.0) Red Blood Count 4.07 x10^6/uL (3.50-5.40) Hemoglobin 12.8 g/dL (12.0-15.5) Hematocrit 35.3 % (36.0-47.0) Mean Corpuscular Volume 87 fL (79-100) Mean Corpuscular Hemoglobin 32 pg (25-35) Mean Corpuscular Hemoglobin Concent 36 g/dL (31-37) Red Cell Distribution Width 12.8 % (11.5-14.5) Platelet Count 302 x10^3/uL (140-400) Neutrophils (%) (Auto) 78 % (31-73) Lymphocytes (%) (Auto) 12 % (24-48) Monocytes (%) (Auto) 10 % (0-9) Eosinophils (%) (Auto) 0 % (0-3) Basophils (%) (Auto) 1 % (0-3) Neutrophils # (Auto) 8.0 x10^3uL (1.8-7.7) Lymphocytes # (Auto) 1.2 x10^3/uL (1.0-4.8) Monocytes # (Auto) 1.0 x10^3/uL (0.0-1.1) Eosinophils # (Auto) 0.0 x10^3/uL (0.0-0.7) Basophils # (Auto) 0.1 x10^3/uL (0.0-0.2) Magnesium Level 1.8 mg/dL (1.8-2.4) Test 12/26/17 04:45 Sodium Level 130 mmol/L (136-145) Potassium Level 4.5 mmol/L (3.5-5.1) Chloride Level 96 mmol/L (98-107) Carbon Dioxide Level 26 mmol/L (21-32) Anion Gap 8 (6-14) Blood Urea Nitrogen 5 mg/dL (7-20) Creatinine 0.7 mg/dL (0.6-1.0) Estimated GFR (Cockcroft-Gault) 84.2 Glucose Level 105 mg/dL (70-99) Calcium Level 9.0 mg/dL (8.5-10.1) Laboratory Tests Test 12/26/17 04:45 Sodium Level 130 mmol/L (136-145) Potassium Level 4.5 mmol/L (3.5-5.1) Chloride Level 96 mmol/L (98-107) Carbon Dioxide Level 26 mmol/L (21-32) Anion Gap 8 (6-14) Blood Urea Nitrogen 5 mg/dL (7-20) Creatinine 0.7 mg/dL (0.6-1.0) Estimated GFR (Cockcroft-Gault) 84.2 Glucose Level 105 mg/dL (70-99) Calcium Level 9.0 mg/dL (8.5-10.1) Microbiology 12/24/17 Blood Culture - Preliminary, Resulted NO GROWTH AFTER 2 DAYS Medications Current Medications Lorazepam (Ativan) 2 mg STK-MED ONCE .ROUTE ; Start 12/23/17 at 23:16; Stop at 23:17; Status DC Lorazepam (Ativan) 1 mg 1X ONCE IV Last administered on 12/23/17at 23:45; Start 12/23/17 at 23:45; Stop 12/23/17 at 23:46; Status DC Levetiracetam 1000 mg/Dextrose 110 ml @ 440 mls/hr 1X ONCE IV Last administered on 12/23/17at 23:45; Start 12/23/17 at 23:45; Stop 12/23/17 at 23 :59; Status DC Sodium Chloride 500 ml @ 30 mls/hr 1X ONCE IV Last administered on at 01:00; Start 12/24/17 at 01:00; Stop 12/24/17 at 17:39; Status DC Sodium Chloride 500 ml @ 30 mls/hr 1X STAT IV ; Start 12/24/17 at 00:21; Stop 12/24/17 at 17:00; Status UNV Sodium Chloride 500 ml @ 50 mls/hr 1X ONCE IV ; Start 12/24/17 at 00:30; Stop 12/24/17 at 10:29; Status UNV Potassium Chloride/Sodium Chloride 1,000 ml @ 75 mls/hr 1X ONCE IV Last administered on 12/24/17at 01:00; Start 12/24/17 at 01:00; Stop 12/24/17 at 14 :19; Status DC Sodium Chloride 500 ml @ 30 mls/hr 1X ONCE IV Last administered on at 04:00; Start 12/24/17 at 04:00; Stop 12/24/17 at 20:39; Status DC Sodium Chloride 500 ml @ 50 mls/hr 1X ONCE IV ; Start 12/24/17 at 03:45; Stop 12/24/17 at 13:44; Status UNV Acetaminophen (Tylenol) 500 mg PRN Q6HRS PRN PO MILD PAIN / TEMP; Start at 09:45; Status Cancel Ondansetron HCl (Zofran) 4 mg PRN Q6HRS PRN IV NAUSEA/VOMITING; Start at 09:45 Ondansetron HCl (Zofran Odt) 4 mg PRN Q6HRS PRN PO NAUSEA/VOMITING; Start 03/01 at 09:45; Status Cancel Lorazepam (Ativan) 2 mg PRN Q4HRS PRN IV sz Last administered on 12/25/17at 09: 30; Start 12/24/17 at 09:45 Potassium Chloride 30 meq/ Sodium Chloride 1,015 ml @ 75 mls/hr 1X ONCE IV Last administered on 12/24/17at 13:00; Start 12/24/17 at 13:00; Stop 12/25/17 at 02:31; Status DC Acetaminophen (Tylenol) 325 mg PRN Q4HRS PRN PO HEADACHE / TEMP; Start at 13:15 Clonidine HCl (Catapres) 0.1 mg PRN BID PRN PO SBP>160 Last administered on at 06:16; Start 12/24/17 at 13:15 Metoprolol Tartrate (Lopressor) 50 mg BID PO Last administered on 12/26/17at 09 :37; Start 12/24/17 at 14:00 Fish Oil (Fish Oil) 1 mg DAILY PO Last administered on 12/26/17 09:36; Start 12/24/17 at 14:00 Ondansetron HCl (Zofran Odt) 4 mg PRN Q6HRS PRN PO NAUSEA/VOMITING 1ST CHOICE Last administered on 12/25/17at 20:11; Start 12/24/17 at 13:15 Polyethylene Glycol (miraLAX PACKET) 17 gm PRN DAILY PRN PO CONSTIPATION 1ST CHOICE; Start 12/24/17 at 14:00 Vitamin D (Vitamin D3) 5,000 unit DAILY PO Last administered on 12/26/17 09: 37; Start 12/24/17 at 14:00 Ibuprofen (Motrin) 600 mg PRN Q6HRS PRN PO INFLAMMATION Last administered on 17:02; Start 12/24/17 at 13:45 Oxycodone HCl (Roxicodone) 5 mg PRN TID PRN PO PAIN Last administered on 08:38; Start 12/24/17 at 13:45; Stop 12/25/17 at 12:47; Status DC Promethazine HCl (Phenergan) 25 mg PRN Q6HRS PRN PO NAUSEA/VOMITING, 2ND CHOICE ; Start 12/24/17 at 13:45 Phenazopyridine HCl (Pyridium) 200 mg PRN TID PRN PO URINARY PAIN Last administered on 12/24/17at 18:24; Start 12/24/17 at 16:15 Labetalol HCl (Normodyne Iv Push) 20 mg 1X ONCE IVP Last administered on 12/25at 05:37; Start 12/25/17 at 06:00; Stop 12/25/17 at 06:01; Status DC Potassium Chloride/Sodium Chloride 1,000 ml @ 250 mls/hr Q4H IV Last administered on 12/25/17 08:28; Start 12/25/17 at 07:30; Stop 12/25/17 at 11 :29; Status DC Potassium Chloride (Klor-Con) 40 meq 1X ONCE PO Last administered on at 12:49; Start 12/25/17 at 12:00; Stop 12/25/17 at 12:01; Status DC Potassium Chloride (Klor-Con) 20 meq 1X ONCE PO Last administered on 12:48; Start 12/25/17 at 12:00; Stop 12/25/17 at 12:01; Status DC Potassium Chloride (Klor-Con) 40 meq BIDWMEALS PO Last administered on at 18:33; Start 12/25/17 at 17:00; Stop 12/26/17 at 08:54; Status DC Oxycodone HCl (Roxicodone) 10 mg PRN TID PRN PO SEVERE PAIN Last administered on 12/25/17at 20:11; Start 12/25/17 at 13:00; Stop 12/26/17 at 08:54; Status DC Oxycodone/ Acetaminophen (Percocet 10/325) 1 tab PRN Q4HRS PRN PO MODERATE PAIN Last administered on 12/26/17 02:37; Start 12/25/17 at 13:00 Clonazepam (KlonoPIN) 0.5 mg BID PO Last administered on 12/25/17 14:05; Start 12/25/17 at 13:00; Stop 12/25/17 at 16:11; Status DC Duloxetine HCl (Cymbalta) 30 mg BID PO Last administered on 12/26/17 09:36; Start 12/25/17 at 13:00 Nicotine (Nicoderm Cq 21mg) 1 patch DAILY TD Last administered on 12/26/17at 09 :37; Start 12/25/17 at 18:00 Lidocaine (Lidoderm) 1 patch DAILY TD Last administered on 12/26/17at 09:37; Start 12/25/17 at 18:00 Miscellaneous (Lidoderm Patch Removal) 1 ea QHS MC Last administered on 20:14; Start 12/25/17 at 21:00 Temazepam (Restoril) 15 mg PRN QHS PRN PO INSOMNIA Last administered on 21:52; Start 12/25/17 at 21:45 Lorazepam (Ativan) 1 mg PRN Q4HRS PRN IV ANXIETY / AGITATION Last administered on 12/25/17at 21:56; Start 12/25/17 at 21:45 Oxycodone HCl (Roxicodone) 15 mg PRN TID PRN PO SEVERE PAIN; Start 12/26/17 at 09:00 Active Scripts Active Ondansetron Odt (Ondansetron) 4 Mg Tab.rapdis 1 Tab PO PRN Q6-8HRS Reported Cymbalta (Duloxetine Hcl) 30 Mg Capsule.dr 30 Mg PO BID Clonazepam 0.5 Mg Tablet 1 Tab PO BID Zolpidem Tartrate 5 Mg Tablet 5 Mg PO PRN QHS PRN Fluticasone Propionate Nasal [place] (Fluticasone Propionate) 16 Gm [place].susp 2 [place] NS DAILY PRN Fish Oil 1,000 Mg Capsule ([place]-3 Fatty Acids/Fish Oil) 1 Each Capsule 1 Each PO Vitamin D3 (Cholecalciferol (Vitamin D3)) 5,000 Unit Tablet 1 Tab PO DAILY Oxycodone Hcl 5 Mg Capsule 1 Cap PO TID PRN Ibuprofen 600 Mg Tablet 600 Mg PO PRN Q6HRS PRN Clonidine Hcl 0.1 Mg Tablet 0.1 Mg PO BID PRN Tylenol (Acetaminophen) 325 Mg Tablet 1 Tab PO PRN Q4HRS Promethazine Hcl 25 Mg Tablet 1 Tab PO PRN Q6HRS Polyethylene Glycol 3350 255 Gm Powder 17 Gm PO DAILY PRN Metoprolol Tartrate 50 Mg Tablet 1 Tab PO BID Vitals/I & O Vital Sign - Last 24 Hours 12/25/17 12/25/17 12/25/17 12/25/17 10:09 10:13 11:00 12:00 Temp 99.0 98.0 99.0 98.0 Pulse 67 80 80 Resp 18 24 18 B/P (MAP) 106/42 (63) 102/39 (60) 147/60 (89) Pulse Ox 96 97 93 93 O2 Delivery Room Air Room Air Room Air Room Air O2 Flow Rate 4.0 4.0 12/25/17 12/25/17 12/25/17 12/25/17 12:00 13:00 14:00 14:05 Pulse 78 64 Resp 18 B/P (MAP) 120/70 (87) 105/43 (63) Pulse Ox 93 93 93 O2 Delivery Room Air Room Air Room Air Room Air O2 Flow Rate 4.0 4.0 4.0 4.0 12/25/17 12/25/17 12/25/17 12/25/17 16:13 19:00 19:10 20:10 Temp 98.5 98.5 Pulse 68 67 Resp 18 B/P (MAP) 107/83 (91) 107/83 Pulse Ox 93 95 O2 Delivery Room Air Room Air O2 Flow Rate 4.0 12/25/17 12/25/17 12/25/17 12/26/17 20:11 21:23 22:31 02:37 Temp 97.9 97.9 Pulse 66 Resp 18 16 18 14 B/P (MAP) 146/61 (89) Pulse Ox 100 95 O2 Delivery Room Air Room Air Room Air Room Air 12/26/17 12/26/17 12/26/17 12/26/17 03:00 06:16 07:00 07:45 Temp 98.1 98.5 98.1 98.5 Pulse 62 69 71 Resp 18 18 B/P (MAP) 186/78 (114) 168/64 149/69 (95) Pulse Ox 100 99 O2 Delivery Room Air Room Air Room Air 12/26/17 09:37 Pulse 71 B/P (MAP) 149/69 Intake and Output 12/25/17 12/25/17 12/26/17 15:00 23:00 07:00 Intake Total 1400 ml 350 ml 600 ml Output Total 1300 ml 400 ml Balance 1400 ml -950 ml 200 ml WAYNE LANDA MD Dec 26, 2017 10:02
[2017-12-26] MEDS: oxyCODONE IR 5 MG TABLET PO PRN ×3 (10:31→20:51)
[2017-12-26 11:00] VITALS: BP 124/67
[2017-12-26] MEDS: ONDANSETRON PF 4 MG/2 ML VIAL. IV PRN (12:14)
--- NOTE | 2017-12-26 13:12 | PDOC ---
PROGRESS NOTES Subjective Subjective SEEN IN FOLLOW UP OF HYPONATREMIA Objective Objective Vital Signs Date Time Temp Pulse Resp B/P (MAP) Pulse Ox O2 Delivery O2 Flow Rate FiO2 12/26/17 11:31 18 98 Room Air 12/26/17 11:00 97.4 64 124/67 (86) 97.4 12/25/17 16:13 4.0 Intake and Output 12/26/17 07:00 Intake Total 2350 ml Output Total 1700 ml Balance 650 ml Intake Oral 1300 ml Blood Product IV Normal Saline Flush 800 ml Other 250 ml Output Urine Total 1700 ml Physical Exam Abdomen: Normal bowel sounds, Soft, No tenderness, No hepatosplenomegaly, No masses Heart: Regular rate, Normal S1, Normal S2, No murmurs, Gallops Extremities: No clubbing, No cyanosis, No edema, Normal pulses, No tenderness/ swelling General: Alert, Oriented X3, Cooperative Lungs: Clear to auscultation, Normal air movement Psych/Mental Status: Mental status NL, Mood NL Diagnosis Other HYPONATREMIA Assessment Assessment Problems Medical Problems: (1) Hypokalemia Status: Acute (2) Hyponatremia Status: Acute (3) Rhabdomyolysis Status: Acute (4) Seizure Status: Acute Plan Plan of Care SERUM SODIUM IS BETTER. CONT FLUID RESTRICTION Comment Review of Relevant I have reviewed the following items yariel (where applicable) has been applied. Labs Laboratory Tests Test 12/25/17 00:30 12/25/17 06:00 12/26/17 04:45 Sodium Level 127 mmol/L (136-145) 132 mmol/L (136-145) 130 mmol/L (136-145) White Blood Count 10.2 x10^3/uL (4.0-11.0) Red Blood Count 4.07 x10^6/uL (3.50-5.40) Hemoglobin 12.8 g/dL (12.0-15.5) Hematocrit 35.3 % (36.0-47.0) Mean Corpuscular Volume 87 fL (79-100) Mean Corpuscular Hemoglobin 32 pg (25-35) Mean Corpuscular Hemoglobin Concent 36 g/dL (31-37) Red Cell Distribution Width 12.8 % (11.5-14.5) Platelet Count 302 x10^3/uL (140-400) Neutrophils (%) (Auto) 78 % (31-73) Lymphocytes (%) (Auto) 12 % (24-48) Monocytes (%) (Auto) 10 % (0-9) Eosinophils (%) (Auto) 0 % (0-3) Basophils (%) (Auto) 1 % (0-3) Neutrophils # (Auto) 8.0 x10^3uL (1.8-7.7) Lymphocytes # (Auto) 1.2 x10^3/uL (1.0-4.8) Monocytes # (Auto) 1.0 x10^3/uL (0.0-1.1) Eosinophils # (Auto) 0.0 x10^3/uL (0.0-0.7) Basophils # (Auto) 0.1 x10^3/uL (0.0-0.2) Potassium Level 2.6 mmol/L (3.5-5.1) 4.5 mmol/L (3.5-5.1) Chloride Level 97 mmol/L (98-107) 96 mmol/L (98-107) Carbon Dioxide Level 25 mmol/L (21-32) 26 mmol/L (21-32) Anion Gap 10 (6-14) 8 (6-14) Blood Urea Nitrogen 6 mg/dL (7-20) 5 mg/dL (7-20) Creatinine 0.7 mg/dL (0.6-1.0) 0.7 mg/dL (0.6-1.0) Estimated GFR (Cockcroft-Gault) 84.2 84.2 Glucose Level 99 mg/dL (70-99) 105 mg/dL (70-99) Calcium Level 8.9 mg/dL (8.5-10.1) 9.0 mg/dL (8.5-10.1) Magnesium Level 1.8 mg/dL (1.8-2.4) Laboratory Tests Test 12/26/17 04:45 Sodium Level 130 mmol/L (136-145) Potassium Level 4.5 mmol/L (3.5-5.1) Chloride Level 96 mmol/L (98-107) Carbon Dioxide Level 26 mmol/L (21-32) Anion Gap 8 (6-14) Blood Urea Nitrogen 5 mg/dL (7-20) Creatinine 0.7 mg/dL (0.6-1.0) Estimated GFR (Cockcroft-Gault) 84.2 Glucose Level 105 mg/dL (70-99) Calcium Level 9.0 mg/dL (8.5-10.1) Microbiology 12/24/17 Blood Culture - Preliminary, Resulted NO GROWTH AFTER 2 DAYS Medications Current Medications Lorazepam (Ativan) 2 mg STK-MED ONCE .ROUTE ; Start 12/23/17 at 23:16; Stop at 23:17; Status DC Lorazepam (Ativan) 1 mg 1X ONCE IV Last administered on 12/23/17at 23:45; Start 12/23/17 at 23:45; Stop 12/23/17 at 23:46; Status DC Levetiracetam 1000 mg/Dextrose 110 ml @ 440 mls/hr 1X ONCE IV Last administered on 12/23/17at 23:45; Start 12/23/17 at 23:45; Stop 12/23/17 at 23 :59; Status DC Sodium Chloride 500 ml @ 30 mls/hr 1X ONCE IV Last administered on at 01:00; Start 12/24/17 at 01:00; Stop 12/24/17 at 17:39; Status DC Sodium Chloride 500 ml @ 30 mls/hr 1X STAT IV ; Start 12/24/17 at 00:21; Stop 12/24/17 at 17:00; Status UNV Sodium Chloride 500 ml @ 50 mls/hr 1X ONCE IV ; Start 12/24/17 at 00:30; Stop 12/24/17 at 10:29; Status UNV Potassium Chloride/Sodium Chloride 1,000 ml @ 75 mls/hr 1X ONCE IV Last administered on 12/24/17at 01:00; Start 12/24/17 at 01:00; Stop 12/24/17 at 14 :19; Status DC Sodium Chloride 500 ml @ 30 mls/hr 1X ONCE IV Last administered on at 04:00; Start 12/24/17 at 04:00; Stop 12/24/17 at 20:39; Status DC Sodium Chloride 500 ml @ 50 mls/hr 1X ONCE IV ; Start 12/24/17 at 03:45; Stop 12/24/17 at 13:44; Status UNV Acetaminophen (Tylenol) 500 mg PRN Q6HRS PRN PO MILD PAIN / TEMP; Start at 09:45; Status Cancel Ondansetron HCl (Zofran) 4 mg PRN Q6HRS PRN IV NAUSEA/VOMITING Last administered on 12/26/17at 12:14; Start 12/24/17 at 09:45 Ondansetron HCl (Zofran Odt) 4 mg PRN Q6HRS PRN PO NAUSEA/VOMITING; Start 03/01 at 09:45; Status Cancel Lorazepam (Ativan) 2 mg PRN Q4HRS PRN IV sz Last administered on 12/25/17 09: 30; Start 12/24/17 at 09:45 Potassium Chloride 30 meq/ Sodium Chloride 1,015 ml @ 75 mls/hr 1X ONCE IV Last administered on 12/24/17 13:00; Start 12/24/17 at 13:00; Stop 12/25/17 at 02:31; Status DC Acetaminophen (Tylenol) 325 mg PRN Q4HRS PRN PO HEADACHE / TEMP; Start at 13:15 Clonidine HCl (Catapres) 0.1 mg PRN BID PRN PO SBP>160 Last administered on 06:16; Start 12/24/17 at 13:15 Metoprolol Tartrate (Lopressor) 50 mg BID PO Last administered on 12/26/17 09 :37; Start 12/24/17 at 14:00 Fish Oil (Fish Oil) 1 mg DAILY PO Last administered on 12/26/17 09:36; Start 12/24/17 at 14:00 Ondansetron HCl (Zofran Odt) 4 mg PRN Q6HRS PRN PO NAUSEA/VOMITING 1ST CHOICE Last administered on 12/25/17at 20:11; Start 12/24/17 at 13:15 Polyethylene Glycol (miraLAX PACKET) 17 gm PRN DAILY PRN PO CONSTIPATION 1ST CHOICE; Start 12/24/17 at 14:00 Vitamin D (Vitamin D3) 5,000 unit DAILY PO Last administered on 12/26/17 09: 37; Start 12/24/17 at 14:00 Ibuprofen (Motrin) 600 mg PRN Q6HRS PRN PO INFLAMMATION Last administered on at 17:02; Start 12/24/17 at 13:45 Oxycodone HCl (Roxicodone) 5 mg PRN TID PRN PO PAIN Last administered on at 08:38; Start 12/24/17 at 13:45; Stop 12/25/17 at 12:47; Status DC Promethazine HCl (Phenergan) 25 mg PRN Q6HRS PRN PO NAUSEA/VOMITING, 2ND CHOICE ; Start 12/24/17 at 13:45 Phenazopyridine HCl (Pyridium) 200 mg PRN TID PRN PO URINARY PAIN Last administered on 12/24/17at 18:24; Start 12/24/17 at 16:15 Labetalol HCl (Normodyne Iv Push) 20 mg 1X ONCE IVP Last administered on 12/25at 05:37; Start 12/25/17 at 06:00; Stop 12/25/17 at 06:01; Status DC Potassium Chloride/Sodium Chloride 1,000 ml @ 250 mls/hr Q4H IV Last administered on 12/25/17at 08:28; Start 12/25/17 at 07:30; Stop 12/25/17 at 11 :29; Status DC Potassium Chloride (Klor-Con) 40 meq 1X ONCE PO Last administered on at 12:49; Start 12/25/17 at 12:00; Stop 12/25/17 at 12:01; Status DC Potassium Chloride (Klor-Con) 20 meq 1X ONCE PO Last administered on at 12:48; Start 12/25/17 at 12:00; Stop 12/25/17 at 12:01; Status DC Potassium Chloride (Klor-Con) 40 meq BIDWMEALS PO Last administered on at 18:33; Start 12/25/17 at 17:00; Stop 12/26/17 at 08:54; Status DC Oxycodone HCl (Roxicodone) 10 mg PRN TID PRN PO SEVERE PAIN Last administered on 12/25/17at 20:11; Start 12/25/17 at 13:00; Stop 12/26/17 at 08:54; Status DC Oxycodone/ Acetaminophen (Percocet 10/325) 1 tab PRN Q4HRS PRN PO MODERATE PAIN Last administered on 12/26/17at 02:37; Start 12/25/17 at 13:00 Clonazepam (KlonoPIN) 0.5 mg BID PO Last administered on 12/25/17 14:05; Start 12/25/17 at 13:00; Stop 12/25/17 at 16:11; Status DC Duloxetine HCl (Cymbalta) 30 mg BID PO Last administered on 12/26/17 09:36; Start 12/25/17 at 13:00 Nicotine (Nicoderm Cq 21mg) 1 patch DAILY TD Last administered on 12/26/17 09 :37; Start 12/25/17 at 18:00 Lidocaine (Lidoderm) 1 patch DAILY TD Last administered on 12/26/17 09:37; Start 12/25/17 at 18:00 Miscellaneous (Lidoderm Patch Removal) 1 ea QHS MC Last administered on 20:14; Start 12/25/17 at 21:00 Temazepam (Restoril) 15 mg PRN QHS PRN PO INSOMNIA Last administered on 21:52; Start 12/25/17 at 21:45 Lorazepam (Ativan) 1 mg PRN Q4HRS PRN IV ANXIETY / AGITATION Last administered on 12/25/17 21:56; Start 12/25/17 at 21:45 Oxycodone HCl (Roxicodone) 15 mg PRN TID PRN PO SEVERE PAIN Last administered on 12/26/17at 10:31; Start 12/26/17 at 09:00 Active Scripts Active Ondansetron Odt (Ondansetron) 4 Mg Tab.rapdis 1 Tab PO PRN Q6-8HRS Reported Cymbalta (Duloxetine Hcl) 30 Mg Capsule.dr 30 Mg PO BID Clonazepam 0.5 Mg Tablet 1 Tab PO BID Zolpidem Tartrate 5 Mg Tablet 5 Mg PO PRN QHS PRN Fluticasone Propionate Nasal [place] (Fluticasone Propionate) 16 Gm [place].susp 2 [place] NS DAILY PRN Fish Oil 1,000 Mg Capsule ([place]-3 Fatty Acids/Fish Oil) 1 Each Capsule 1 Each PO Vitamin D3 (Cholecalciferol (Vitamin D3)) 5,000 Unit Tablet 1 Tab PO DAILY Oxycodone Hcl 5 Mg Capsule 1 Cap PO TID PRN Ibuprofen 600 Mg Tablet 600 Mg PO PRN Q6HRS PRN Clonidine Hcl 0.1 Mg Tablet 0.1 Mg PO BID PRN Tylenol (Acetaminophen) 325 Mg Tablet 1 Tab PO PRN Q4HRS Promethazine Hcl 25 Mg Tablet 1 Tab PO PRN Q6HRS Polyethylene Glycol 3350 255 Gm Powder 17 Gm PO DAILY PRN Metoprolol Tartrate 50 Mg Tablet 1 Tab PO BID Vitals/I & O Vital Sign - Last 24 Hours 12/25/17 12/25/17 12/25/17 12/25/17 14:00 14:05 16:13 19:00 Temp 98.5 98.5 Pulse 64 68 Resp 18 B/P (MAP) 105/43 (63) 107/83 (91) Pulse Ox 93 93 93 95 O2 Delivery Room Air Room Air Room Air O2 Flow Rate 4.0 4.0 4.0 12/25/17 12/25/17 12/25/17 12/25/17 19:10 20:10 20:11 21:23 Pulse 67 Resp 18 16 B/P (MAP) 107/83 O2 Delivery Room Air Room Air Room Air 12/25/17 12/26/17 12/26/17 12/26/17 22:31 02:37 03:00 06:16 Temp 97.9 98.1 97.9 98.1 Pulse 66 62 69 Resp 18 14 18 B/P (MAP) 146/61 (89) 186/78 (114) 168/64 Pulse Ox 100 95 100 O2 Delivery Room Air Room Air Room Air 12/26/17 12/26/17 12/26/17 12/26/17 07:00 07:45 09:37 10:31 Temp 98.5 98.5 Pulse 71 71 Resp 18 18 B/P (MAP) 149/69 (95) 149/69 Pulse Ox 99 98 O2 Delivery Room Air Room Air Room Air 12/26/17 12/26/17 11:00 11:31 Temp 97.4 97.4 Pulse 64 Resp 18 18 B/P (MAP) 124/67 (86) Pulse Ox 98 98 O2 Delivery Room Air Room Air Intake and Output 12/25/17 12/25/17 12/26/17 15:00 23:00 07:00 Intake Total 1400 ml 350 ml 600 ml Output Total 1300 ml 400 ml Balance 1400 ml -950 ml 200 ml STERLING SÁNCHEZ MD Dec 26, 2017 13:12
[2017-12-26 15:00] VITALS: BP 123/72
[2017-12-26] MEDS: ONDANSETRON ODT 4 MG TAB.RAPDIS. PO PRN (17:42)
[2017-12-26 19:00] VITALS: BP 149/74
[2017-12-26] MEDS: PATCH REMOVAL. MC SCH (21:00)
[2017-12-26 23:00] VITALS: BP 168/59
[2017-12-27] MEDS: TEMAZEPAM 15 MG CAPSULE PO PRN (00:15)
[2017-12-27] MEDS: oxyCODONE/APAP 10/325 1 TAB TABLET PO PRN ×2 (02:32→07:52)
[2017-12-27 03:00] VITALS: BP 174/70
[2017-12-27 04:44] LABS: CREATININE 0.8 mg/dL (0.6-1.0); GFR 72.2; POTASSIUM 4.5 mmol/L (3.5-5.1)
[2017-12-27 07:00] VITALS: BP 201/97
[2017-12-27] MEDS: ONDANSETRON PF 4 MG/2 ML VIAL. IV PRN (07:51)
[2017-12-27] MEDS: OMEGA-3 FATTY ACIDS/FISH OIL 1,000 MG CAPSULE. PO SCH (09:24)
[2017-12-27] MEDS: DULoxetine HCL 30 MG CAPSULE.DR PO SCH (09:25)
[2017-12-27] MEDS: CHOLECALCIFEROL (VITAMIN D3) 5,000 UNIT CAPSULE PO SCH (09:25)
[2017-12-27 09:26] VITALS: BP 201/97
[2017-12-27] MEDS: LIDOCAINE (700MG/PATCH) PATCH. TD SCH (09:26)
[2017-12-27] MEDS: METOPROLOL TART IMMED RELEASE 50 MG TABLET. PO SCH (09:26)
[2017-12-27] MEDS: NICOTINE 21MG PATCH. TD SCH (09:29)
--- NOTE | 2017-12-27 10:42 | DISCH ---
DISCHARGE WITH HOME HEALTH DISCHARGE INFORMATION: Discharge Date: Dec 27, 2017 Final Diagnosis: Problems Medical Problems: (1) Hypokalemia Status: Acute (2) Hyponatremia Status: Acute (3) Rhabdomyolysis Status: Acute (4) Seizure Status: Acute Condition on Discharge: Stable CODE STATUS: Code Status: Full HOME HEALTH: Face to Face: I certify this patient is under my care and that I had a face to face encounter that meets the physician face to face encounter requirements with this patient on 12/27 Physical Therapy For: Evalulation/Treatment Occupational Therapy For: Evaluation/Treatment POST DISCHARGE ORDERS: DIET AFTER DISCHARGE: 2 liters fluid restriction FOLLOW-UP: Follow up with: primary care < 10 days, CERTIFICATION STATEMENT: Certification Statement: Certification Statement: Based on the above finding, I certify that this patient is confined to the home and needs intermittent snf care, physical therapy and/or speech therapy, or continues to need occupational therapy.~ This patient is under my care, and I have initiated the establishment of the plan of care.~ This patient will be followed by myself or a community physician who will periodically review the plan of care. Home Meds Active Scripts Lorazepam (ATIVAN) 0.5 Mg Tablet, 0.5 MG PO BID PRN for ANXIETY / AGITATION, # 30 TAB Prov:ELI TREVIZO MD 12/27/17 Lidocaine (Lidocaine) 1 Each Adh..patch, 1 PATCH TD DAILY, #7 PATCH Prov:ELI TREVIZO MD 12/27/17 Duloxetine Hcl (CYMBALTA) 60 Mg Capsule.dr, 1 CAP PO DAILY, #30 CAP 1 Refill Prov:ELI TREVIZO MD 12/27/17 Ondansetron (ONDANSETRON ODT) 4 Mg Tab.rapdis, 1 TAB PO PRN Q6-8HRS, #16 TAB 0 Refills Prov:GERARD YAÑEZ CAMPAIGN MARKETING SPECIALIST 12/23/17 Reported Medications Duloxetine Hcl (CYMBALTA) 30 Mg Capsule.dr, 30 MG PO BID, CAP 12/24/17 Clonazepam (CLONAZEPAM) 0.5 Mg Tablet, 1 TAB PO BID, #60 TAB 1 Refill 12/24/17 Zolpidem Tartrate (ZOLPIDEM TARTRATE) 5 Mg Tablet, 5 MG PO PRN QHS PRN for INSOMNIA, TAB 0 Refills 12/24/17 Fluticasone Propionate (FLUTICASONE PROPIONATE NASAL SPRAY) 16 Gm [place].susp, 2 SPRAY NS DAILY PRN for ALLERGIES, #1 INHALER 11 Refills 12/24/17 [place]-3 Fatty Acids/Fish Oil (FISH OIL 1,000 MG CAPSULE) 1 Each Capsule, 1 EACH PO, CAP 12/24/17 Cholecalciferol (Vitamin D3) (VITAMIN D3) 5,000 Unit Tablet, 1 TAB PO DAILY, # 30 TAB 12/24/17 Oxycodone Hcl (OXYCODONE HCL) 5 Mg Capsule, 1 CAP PO TID PRN for PAIN, #90 CAP 12/24/17 Ibuprofen (IBUPROFEN) 600 Mg Tablet, 600 MG PO PRN Q6HRS PRN for INFLAMMATION, TAB 12/24/17 Clonidine Hcl (CLONIDINE HCL) 0.1 Mg Tablet, 0.1 MG PO BID PRN for SEE COMMENTS , TAB 12/24/17 Acetaminophen (TYLENOL) 325 Mg Tablet, 1 TAB PO PRN Q4HRS, #30 TAB 12/24/17 Promethazine Hcl (PROMETHAZINE HCL) 25 Mg Tablet, 1 TAB PO PRN Q6HRS, #20 TAB 12/24/17 Polyethylene Glycol 3350 (POLYETHYLENE GLYCOL 3350) 255 Gm Powder, 17 GM PO DAILY PRN for CONSTIPATION, #527 GM 12/24/17 Metoprolol Tartrate (METOPROLOL TARTRATE) 50 Mg Tablet, 1 TAB PO BID, #60 TAB 5 Refills 12/24/17 ELI TREVIZO MD Dec 27, 2017 10:42
[2017-12-27] MEDS ORDERED: DULO60CA6 PO (10:44)
[2017-12-27] MEDS ORDERED: LORA0.5T96 PO (10:45)
[2017-12-27] MEDS ORDERED: LIDO700A39 TD (10:45)
--- NOTE | 2017-12-27 10:52 | PDOC3 ---
Discharge Summary Visit Information Date of Admission: Dec 24, 2017 Date of Discharge: Dec 27, 2017 Admitting Diagnosis: seizure Final Diagnosis Critical hyponatremia s/p hypertonic saline seizure, metabolic, low Na+ History of bipolar/PTSD hypokalemia, SIRS Reactive leukocytosis Mild rhabdomyolysis Met encephalopathy - acute on admit weakness and debility Left shoulder fx RT elbow fx psoriatic arthritis fibromyalgia More importantly sodium HAs stopped increasing, status post hypertonic saline - sodium increased or jumpED to 24 points in 24 hours-there was a concern for central pontine myelinolysis Now sodium down to 130 from 132 which is good Potassium has been corrected to 4 from critical hypokalemia at 2 - NOW eating Plan Okay to transfer out of ICU PT OT recommended SNU and they are agreeable Social work on case- consulted last Wednesday Follow renal recommendations Home meds have I reconciled Problems Medical Problems: (1) Hypokalemia Status: Acute (2) Hyponatremia Status: Acute (3) Rhabdomyolysis Status: Acute (4) Seizure Status: Acute Brief Hospital Course Allergies Allergies Coded Allergies Type Severity Reaction Last Updated Verified No Known Drug Allergies 12/23/17 No Vital Signs Vital Signs Date Time Temp Pulse Resp B/P (MAP) Pulse Ox O2 Delivery O2 Flow Rate FiO2 12/27/17 09:26 74 201/97 12/27/17 09:22 Room Air 12/27/17 07:00 96.6 18 98 96.6 12/26/17 20:00 4.0 Lab Results Laboratory Tests Test 12/26/17 04:45 12/26/17 16:25 12/26/17 20:33 12/27/17 03:40 Sodium Level 130 mmol/L (136-145) 129 mmol/L (136-145) Potassium Level 4.5 mmol/L (3.5-5.1) 4.5 mmol/L (3.5-5.1) Chloride Level 96 mmol/L (98-107) 95 mmol/L (98-107) Carbon Dioxide Level 26 mmol/L (21-32) 30 mmol/L (21-32) Anion Gap 8 (6-14) 4 (6-14) Blood Urea Nitrogen 5 mg/dL (7-20) 5 mg/dL (7-20) Creatinine 0.7 mg/dL (0.6-1.0) 0.8 mg/dL (0.6-1.0) Estimated GFR (Cockcroft-Gault) 84.2 72.2 Glucose Level 105 mg/dL (70-99) 106 mg/dL (70-99) Calcium Level 9.0 mg/dL (8.5-10.1) 9.0 mg/dL (8.5-10.1) Glucose (Fingerstick) 101 mg/dL (70-99) 119 mg/dL (70-99) Test 12/27/17 08:05 Glucose (Fingerstick) 98 mg/dL (70-99) Laboratory Tests Test 12/26/17 16:25 12/26/17 20:33 12/27/17 03:40 12/27/17 08:05 Glucose (Fingerstick) 101 mg/dL (70-99) 119 mg/dL (70-99) 98 mg/dL (70-99) Sodium Level 129 mmol/L (136-145) Potassium Level 4.5 mmol/L (3.5-5.1) Chloride Level 95 mmol/L (98-107) Carbon Dioxide Level 30 mmol/L (21-32) Anion Gap 4 (6-14) Blood Urea Nitrogen 5 mg/dL (7-20) Creatinine 0.8 mg/dL (0.6-1.0) Estimated GFR (Cockcroft-Gault) 72.2 Glucose Level 106 mg/dL (70-99) Calcium Level 9.0 mg/dL (8.5-10.1) Brief Hospital Course Ms. Elena is a 62 old admit with seizure, then somnolent. Na 108,. 3% saline given, anxiety, weakness She was supposed to take Cymbalta but has not been taking since last summer-but does agree to be on it as per recs by her doctor outside of the hospital [place], home health Discharge Information Condition at Discharge: Improved Follow Up: Weeks Disposition/Orders: D/C to Home w/ HH Scheduled Acetaminophen (Tylenol) 325 Mg Tablet, 1 TAB PO PRN Q4HRS, #30 (Reported) Entered as Reported by: LIV CHARLES on 12/24/17 1313 Last Action: Continued on 12/24/171317 by LIV CHARLES Cholecalciferol (Vitamin D3) (Vitamin D3) 5,000 Unit Tablet, 1 TAB PO DAILY, #30 (Reported) Entered as Reported by: LIV CHARLES on 12/24/171312 Last Action: Converted on 12/24/171317 by LIV CHARLES Clonazepam (Clonazepam) 0.5 Mg Tablet, 1 TAB PO BID, #60 Ref 1 (Reported) Entered as Reported by: LIV CHARLES on 12/24/171312 Last Action: Continued on 12/25/171246 by WAYNE LANDA Duloxetine Hcl (Cymbalta) 30 Mg Capsule.dr, 30 MG PO BID, (Reported) Entered as Reported by: LIV CHARLES on 12/24/171312 Last Action: Continued on 12/25/171246 by WAYNE LANDA Duloxetine Hcl (Cymbalta) 60 Mg Capsule.dr, 1 CAP PO DAILY, #30 Ref 1 Prescribed by: ELI TREVIZO on 12/27/17 1044 Lidocaine (Lidocaine) 1 Each Adh..patch, 1 PATCH TD DAILY, #7 Prescribed by: ELI TREVIZO on 12/27/17 1045 Metoprolol Tartrate (Metoprolol Tartrate) 50 Mg Tablet, 1 TAB PO BID, #60 Ref 5 (Reported) Entered as Reported by: LIV CHARLES on 12/24/171312 Last Action: Continued on 12/24/171317 by LIV CHARLES Ondansetron (Ondansetron Odt) 4 Mg Tab.rapdis, 1 TAB PO PRN Q6-8HRS, #16 Ref 0 Prescribed by: GERARD YAÑEZ APRN on 12/23/172038 Last Action: Continued on 12/24/171317 by LIV CHARLES Promethazine Hcl (Promethazine Hcl) 25 Mg Tablet, 1 TAB PO PRN Q6HRS, #20 ( Reported) Entered as Reported by: LIV CHARLES on 12/24/171312 Last Action: Converted on 12/24/171317 by LIV CHARLES Scheduled PRN Clonidine Hcl (Clonidine Hcl) 0.1 Mg Tablet, 0.1 MG PO BID PRN for SEE COMMENTS, (Reported) Entered as Reported by: LIV CHARLES on 12/24/171312 Last Action: Continued on 12/24/171317 by LIV CHARLES Fluticasone Propionate (Fluticasone Propionate Nasal [place]) 16 Gm [place].susp, 2 SPRAY NS DAILY PRN for ALLERGIES, #1 Ref 11 (Reported) Entered as Reported by: LIV CHARLES on 12/24/171312 Last Action: Reviewed on 12/24/171314 by LIV CHARLES Ibuprofen (Ibuprofen) 600 Mg Tablet, 600 MG PO PRN Q6HRS PRN for INFLAMMATION, ( Reported) Entered as Reported by: LIV CHARLES on 12/24/171312 Last Action: Converted on 12/24/171317 by LIV CHARLES Lorazepam (Ativan) 0.5 Mg Tablet, 0.5 MG PO BID PRN for ANXIETY / AGITATION, #30 Prescribed by: ELI TREVIZO on 12/27/17 1045 Oxycodone Hcl (Oxycodone Hcl) 5 Mg Capsule, 1 CAP PO TID PRN for PAIN, #90 ( Reported) Entered as Reported by: LIV CHARLES on 12/24/171312 Last Action: Converted on 12/24/171317 by LIV CHARLES Polyethylene Glycol 3350 (Polyethylene Glycol 3350) 255 Gm Powder, 17 GM PO DAILY PRN for CONSTIPATION, #527 (Reported) Entered as Reported by: LIV CHARLES on 12/24/171312 Last Action: Continued on 12/24/171317 by LIV CHARLES Zolpidem Tartrate (Zolpidem Tartrate) 5 Mg Tablet, 5 MG PO PRN QHS PRN for INSOMNIA, Ref 0 (Reported) Entered as Reported by: LIV CHARLES on 12/24/171312 Last Action: Reviewed on 12/24/171314 by LIV CHARLES Miscellaneous Medications [place]-3 Fatty Acids/Fish Oil (Fish Oil 1,000 Mg Capsule) 1 Each Capsule, 1 EACH PO, (Reported) Entered as Reported by: LIV CHARLES on 12/24/171312 Last Action: Continued on 12/24/171317 by LIV CHARLES Patient Instructions Patient Instructions > 30 min face to face, discussed pain and anxiety meds at length ELI TREVIZO MD Dec 27, 2017 10:52
--- NOTE | 2017-12-27 18:31 | PDOC ---
PROGRESS NOTES Assessment Assessment IMPRESSION: Seizures, provoked by electrolytes imbalances. hyponatremia, Na+ 104. Hypokalemia. K+ 2.8 HTN. Psychogenic polydipsia. Bipolar disorder. Over weight. RECOMMENDATIONS/PLAN: No AEDs are recommended for provoked seizure. treat medical diseases. See psychiatry. Not driving x 6 months anytime after a seizure. FU with PCP. Past Medical History Cardiovascular: HTN Psych: Bipolar Past Surgical History Left shoulder surgery. Family History No pertinent hx ( negative for seizures) Social History , no alcohol or tobacco ALLERGY: REviewed. MEDICATIONS: Refer to [facility] REVIEW OF SYSTEMS: Constitutional: No malnutrition, weight loss, cachexia. Head: No traumatic brain or head injury. Skin: No edema, or rash. Ear: No infection. Eyes: No vision loss, or diplopia. Nose: No bleeding or purulent discharges. Hearing: No hearing decrease. Neck: No injury. Breast: No history of cancer, masses, or discharges. Cardiac: HTN Pulmonary: No COPD. GI: No GI Ulcer, GI bleeding Urinary/genital: UTI. Endocrine: No cousin face, craniofacial dysmorphism, polydactyly. Skeletomuscular: No muscular atrophy, deformity. Neurological: see HP. Psychiatric: Denies drug use/abuse. Otherwise, not [id number] review of systems. PHYSICAL EXAMINATION: General appearance in no acute distress. HEENT: Normocephalic and nontraumatic. Eyes, nose, ears, and throat are unremarkable. Neck is supple. No lymphadenopathy. No Crepitus. Cardiovascular: S1, S2, regular rate and rhythm. Pulmonary: Clear to auscultation bilaterally. Abdomen: Bowel sounds are positive. Abdomen is soft, nontender, and nondistended. Extremities: No rash, lesions, or edema. No restriction of range of motion NEUROLOGICAL EXAMINATION: Alert. Oriented to time, place and person. PERRL. EOMI. CN: no focal findings. Muscle tone: within normal. Muscle strength: 5 DTR: 2 Plantar reflex: not examed due to unable to perform in position. Gait: At baseline normal. Sensory exam: no abnormal findings. No cerebellar signs elicited. F-T-N test fine. Objective Objective Vital Signs Date Time Temp Pulse Resp B/P (MAP) Pulse Ox O2 Delivery O2 Flow Rate FiO2 12/27/17 09:26 74 201/97 12/27/17 09:22 Room Air 12/27/17 07:00 96.6 18 98 96.6 12/26/17 20:00 4.0 Intake and Output 12/27/17 07:00 Intake Total 540 ml Output Total 775 ml Balance -235 ml Intake Oral 540 ml Output Urine Total 775 ml # Voids 5 Vitals Signs Vitals VS - Last 72 Hours, by Label Date Time Temp Pulse Resp B/P (MAP) Pulse Ox O2 Delivery O2 Flow Rate FiO2 12/27/17 09:26 74 201/97 12/27/17 09:22 Room Air 12/27/17 08:00 Room Air 12/27/17 07:52 Room Air 12/27/17 07:00 96.6 68 18 201/97 (131) 98 Room Air 96.6 12/27/17 03:00 97.7 74 18 174/70 (104) 97 Room Air 97.7 12/27/17 02:32 Room Air 12/26/17 23:00 97.7 64 18 168/59 (95) 95 Room Air 97.7 12/26/17 21:51 Room Air 12/26/17 20:51 Room Air 12/26/17 20:51 149/74 12/26/17 20:00 Room Air 4.0 12/26/17 19:00 96.4 68 18 149/74 (99) 97 Room Air 96.4 12/26/17 16:00 18 12/26/17 15:00 99.5 64 20 123/72 (89) 95 Room Air 99.5 12/26/17 15:00 20 12/26/17 11:31 98 12/26/17 11:00 97.4 64 18 124/67 (86) 98 Room Air 97.4 12/26/17 10:31 18 98 Room Air 12/26/17 09:37 71 149/69 12/26/17 07:45 Room Air 12/26/17 07:00 98.5 71 18 149/69 (95) 99 Room Air 98.5 Laboratory Laboratory Laboratory Tests Test 12/26/17 20:33 12/27/17 03:40 12/27/17 08:05 Glucose (Fingerstick) 119 mg/dL (70-99) 98 mg/dL (70-99) Sodium Level 129 mmol/L (136-145) Potassium Level 4.5 mmol/L (3.5-5.1) Chloride Level 95 mmol/L (98-107) Carbon Dioxide Level 30 mmol/L (21-32) Anion Gap 4 (6-14) Blood Urea Nitrogen 5 mg/dL (7-20) Creatinine 0.8 mg/dL (0.6-1.0) Estimated GFR (Cockcroft-Gault) 72.2 Glucose Level 106 mg/dL (70-99) Calcium Level 9.0 mg/dL (8.5-10.1) Microbiology 12/24/17 Blood Culture - Preliminary, Resulted NO GROWTH AFTER 3 DAYS Comment Review of Relevant I have reviewed the following items yariel (where applicable) has been applied. AUSTYN CASTANO MD Dec 27, 2017 18:31
== END 2017-12-27 12:36 | disposition home health service (06) | DRG 640 ==
LOC: ER 23:06 → 1 WEST ICU 12-24 01:08 → 5 NORTH 12-26 14:13
PROVIDERS: ADMIT Family Medicine; ATTEND Family Medicine
DX: E87.1 Hypo-osmolality and hyponatremia (principal); G93.41 Metabolic encephalopathy; M62.82 Rhabdomyolysis; R65.10 Systemic inflammatory response syndrome (SIRS) of non-infectious origin without acute organ dysfunction; E87.6 Hypokalemia; F31.9 Bipolar disorder, unspecified; F43.10 Post-traumatic stress disorder, unspecified; I10 Essential (primary) hypertension; L40.50 Arthropathic psoriasis, unspecified; M79.7 Fibromyalgia; R56.9 Unspecified convulsions; R63.1 Polydipsia; Z96.619 Presence of unspecified artificial shoulder joint; M25.40 Effusion, unspecified joint; Z79.899 Other long term (current) drug therapy; Z87.81 Personal history of (healed) traumatic fracture
CPT/HCPCS: 36415; 70450; 71045; 73080; 80047; 80048; 80053; 80178; 80307; 80329; 81001; 82436; 82533; 82550; 82962; 83605; 83735; 84100; 84133; 84295; 84300; 84443; 84484; 85007; 85025; 87040; 87641; 93005; 96361; 96365; 96367; 96375; 99291; G0480; G6039; J1953; J2060; J2405; J3480; J3490; Q0162; 97110; 97116; 97530; G0479

== ENCOUNTER 2018-01-05 18:39 | Emergency (ER) | payer BC ==
[~2018-01-05] VITALS: Ht 157.5 cm; Wt 80.3 kg
[~2018-01-05 18:39] MED LIST changes: +ACET325T9 PO; +CHOL500016 PO; +CLON0.1T PO; +CLON0.5T11 PO; +DULO30CA2 PO; +DULO60CA6 PO; +FLUT16SP NS; +IBUP-1007 PO; +LIDO700A39 TD; +LORA0.5T96 PO; +METO50TA6 PO; +OMEG1CAP6 PO; +OXYC5CAP PO; +POLY255P PO; +PROM25TA10 PO; +ZOLP5TAB5 PO
[2018-01-05 19:58] LABS: BASO % 0 % (0-3); EOS % 0 % (0-3); HEMATOCRIT 32.6 % (36.0-47.0); HEMOGLOBIN 11.7 g/dL (12.0-15.5); LYMPH # 0.4 x10^3/uL (1.0-4.8); LYMPH % 3 % (24-48); MEAN CORPUSCULAR HEMOGLOBIN 32 pg (25-35); MEAN CORPUSCULAR HGB CONC 36 g/dL (31-37); MEAN CORPUSCULAR VOLUME 89 fL (79-100); MONO # 0.9 x10^3/uL (0.0-1.1); MONO % 9 % (0-9); NEUT % 87 % (31-73); PLATELET COUNT 260 x10^3/uL (140-400); RED BLOOD COUNT 3.68 x10^6/uL (3.50-5.40); RED CELL DISTRIBUTION WIDTH 12.9 % (11.5-14.5); WHITE BLOOD COUNT 10.3 x10^3/uL (4.0-11.0)
[2018-01-05] MEDS: fentaNYL PF VIAL 100 MCG/2 ML VIAL IV ONE (19:58)
[2018-01-05] MEDS: PROCHLORPERAZINE 10 MG/2 ML VIAL. IV ONE (19:59)
[2018-01-05 20:00] LABS: BILIRUBIN,URINE NEGATIVE (NEG); CLARITY,URINE CLEAR; COLOR,URINE YELLOW; NITRITE,URINE NEGATIVE (NEG); PH,URINE 5.5; PROTEIN,URINE NEGATIVE (NEG-TRACE); UROBILINOGEN,URINE 0.2 mg/dL (0.2 mg/dL)
[2018-01-05 20:06] LABS: CALCIUM 8.6 mg/dL (8.5-10.1); CREATININE 0.7 mg/dL (0.6-1.0); GFR 84.2; POTASSIUM 3.5 mmol/L (3.5-5.1)
[2018-01-05 20:11] LABS: ALBUMIN 2.9 g/dL (3.4-5.0); ALBUMIN/GLOBULIN RATIO 0.8 (1.0-1.7); MAGNESIUM 1.5 mg/dL (1.8-2.4); TOTAL BILIRUBIN 0.4 mg/dL (0.2-1.0); TOTAL PROTEIN 6.4 g/dL (6.4-8.2)
[2018-01-05 20:12] LABS: BACTERIA,URINE 0 /HPF (0-FEW); RBC,URINE OCC /HPF (0-2); SQUAMOUS EPITHELIAL CELL,UR MOD /LPF
[2018-01-05] MEDS: IV NORMAL SALINE 1000ML BAG 1,000 ML IV ONE (20:15)
[2018-01-05 20:18] LABS: % BANDS 4 % (0-9); % LYMPHS 3 % (24-48); % MONOS 6 % (0-10); % SEGS 87 % (35-66)
[2018-01-05 20:19] LABS: PLT ESTIMATE ADEQUATE (ADEQUATE)
[2018-01-05] MEDS: IOHEXOL 300 MG/ML 100ML VIAL. IV ONE (20:44)
[2018-01-05] MEDS ORDERED: CONTRAST GIVEN. MC PRN (20:45)
--- NOTE | 2018-01-05 21:00 | RAD ---
PQRS Compliance statement: One or more of the following individualized dose reduction techniques were utilized for this examination: 1. Automated exposure control. 2. Adjustment of the mA and/or kV according to patient size. 3. Use of iterative reconstruction technique. Indication:low abd pain, TECHNIQUE: CT abdomen and pelvis with IV contrast with multiplanar reformats. COMPARISON: None FINDINGS: Heart is normal in size. No pericardial or pleural effusion. Clear lung bases. Subcentimeter low attenuating lesion is seen in segment IVb of the liver. Otherwise, liver, spleen, gallbladder, pancreas, adrenals within normal limits. No nephrolithiasis. Bilateral extrarenal pelvises. No hydronephrosis. No enlarged retroperitoneal or pelvic adenopathy. No free pelvic fluid or ascites. No bowel obstruction. Normal appendix. Cecum is midline. Uterus is present. Urinary bladder is distended without focal lesion. No pneumoperitoneum. No suspicious bony lesion. IMPRESSION: 1. No bowel obstruction. Midline positioning of cecum, nonspecific. Normal appendix. 2. No nephrolithiasis or hydronephrosis. 3. 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 Either a ultrasound abdomen or Nonemergent MRI of the abdomen can be obtained for definite confirmation. Electronically signed by: Jeet Robledo DO (01/05/2018 8:57 PM) [facility]
--- NOTE | 2018-01-05 21:41 | PHYS DOC ---
Past Medical History Past Medical History: Bipolar, Fibromyalgia, Hypertension Past Surgical History: Other Additional Past Surgical Histo: L SHOULDER Alcohol Use: None Drug Use: None Adult General Chief Complaint Chief Complaint: ABDOMINAL PAIN HPI HPI Patient is a 62-year-old female who presents with complaint of generalized pain all over with pain greatest in her left shoulder. She indicates that she has also been having abdominal pain in the lower part of her abdomen that has been present for the last several days. Patient was recently diagnosed with a urinary tract infection and has started antibiotics. She rates her pain to be a 10 out of 10. She states that pain is worsened with movement. She states that she has been nauseated but has had no vomiting. She denies any diarrhea. Patient does indicate that she continues to have pain with urination despite the antibiotics and is concerned that her infection is not getting better. Review of Systems Review of Systems Constitutional: Denies fever or chills [] Respiratory: Denies cough or shortness of breath [] Cardiovascular: Denies chest pain[] GI: Complains of lower abdominal pain with nausea. No vomiting or diarrhea.[] : Complains of painful urination[] Musculoskeletal: Complains of lower, middle and upper back pain as well as left shoulder pain.[] Integument: Denies rash or skin lesions [] Neurologic: Denies headache, focal weakness or sensory changes [] All other systems were reviewed and found to be within normal limits, except as documented in this note. Current Medications Current Medications Current Medications Medications (Trade) Dose Ordered Sig/Wilder Start Time Stop Time Status Last Admin Dose Admin Fentanyl Citrate (Fentanyl 2ml Vial) 50 mcg 1X ONCE 01/05/18 19:45 01/05/18 19:46 DC 01/05/18 19:58 50 MCG Info (CONTRAST GIVEN -- Rx MONITORING) 1 each PRN DAILY PRN 01/05/18 20:45 01/07/18 20:44 Iohexol (Omnipaque 300 Mg/ml) 75 ml 1X ONCE 01/05/18 20:45 01/05/18 20:46 DC 01/05/18 20:44 75 ML Prochlorperazine Edisylate (Compazine) 10 mg 1X ONCE 01/05/18 19:45 01/05/18 19:46 DC 01/05/18 19:59 10 MG Sodium Chloride 1,000 ml @ 1,000 mls/hr 1X ONCE 10/24/18 20:15 01/05/18 21:14 DC 01/05/18 20:15 1,000 MLS/HR Allergies Allergies Allergies Coded Allergies Type Severity Reaction Last Updated Verified No Known Drug Allergies 12/23/17 No Physical Exam Physical Exam Constitutional: Well developed, well nourished, no acute distress, non-toxic appearance. [] HENT: Normocephalic, atraumatic, bilateral external ears normal, oropharynx moist, no oral exudates, nose normal. [] Eyes: PERRLA, EOMI, conjunctiva normal, no discharge. [] Neck: Normal range of motion, no tenderness, supple, no stridor. [] Cardiovascular:Heart rate regular rhythm [] Lungs & Thorax: Bilateral breath sounds clear to auscultation [] Abdomen: Bowel sounds normal, soft, with lower abdominal tenderness to palpation. [] Skin: Warm, dry, no erythema, no rash. [] Extremities: No tenderness, no cyanosis, no clubbing, ROM intact, no edema. [] Neurologic: Alert and oriented X 3, normal motor function, normal sensory function, no focal deficits noted. [] Current Patient Data Vital Signs Vital Signs Date Time Temp Pulse Resp B/P (MAP) Pulse Ox O2 Delivery O2 Flow Rate FiO2 01/05/18 19:58 20 97 Room Air 01/05/18 19:21 98.1 106 147/64 (91) 98.1 Lab Values Laboratory Tests Test 01/05/18 19:30 White Blood Count 10.3 x10^3/uL (4.0-11.0) Red Blood Count 3.68 x10^6/uL (3.50-5.40) Hemoglobin 11.7 g/dL (12.0-15.5) L Hematocrit 32.6 % (36.0-47.0) L Mean Corpuscular Volume 89 fL (79-100) Mean Corpuscular Hemoglobin 32 pg (25-35) Mean Corpuscular Hemoglobin Concent 36 g/dL (31-37) Red Cell Distribution Width 12.9 % (11.5-14.5) Platelet Count 260 x10^3/uL (140-400) Neutrophils (%) (Auto) 87 % (31-73) H Lymphocytes (%) (Auto) 3 % (24-48) L Monocytes (%) (Auto) 9 % (0-9) Eosinophils (%) (Auto) 0 % (0-3) Basophils (%) (Auto) 0 % (0-3) Neutrophils # (Auto) 9.0 x10^3uL (1.8-7.7) H Lymphocytes # (Auto) 0.4 x10^3/uL (1.0-4.8) L Monocytes # (Auto) 0.9 x10^3/uL (0.0-1.1) Eosinophils # (Auto) 0.0 x10^3/uL (0.0-0.7) Basophils # (Auto) 0.0 x10^3/uL (0.0-0.2) Segmented Neutrophils % 87 % (35-66) H Band Neutrophils % 4 % (0-9) Lymphocytes % 3 % (24-48) L Monocytes % 6 % (0-10) Platelet Estimate Adequate (ADEQUATE) Urine Collection Type Unknown Urine Color Yellow Urine Clarity Clear Urine pH 5.5 Urine Specific [place] 1.010 Urine Protein Negative mg/dL (NEG-TRACE) Urine Glucose (UA) Negative mg/dL (NEG) Urine Ketones (Stick) Trace mg/dL (NEG) Urine Blood Trace (NEG) Urine Nitrite Negative (NEG) Urine Bilirubin Negative (NEG) Urine Urobilinogen Dipstick 0.2 mg/dL (0.2 mg/dL) Urine Leukocyte Esterase Negative (NEG) Urine RBC Occ /HPF (0-2) Urine WBC 1-4 /HPF (0-4) Urine Squamous Epithelial Cells Mod /LPF Urine Bacteria 0 /HPF (0-FEW) Sodium Level 129 mmol/L (136-145) L Potassium Level 3.5 mmol/L (3.5-5.1) Chloride Level 94 mmol/L (98-107) L Carbon Dioxide Level 28 mmol/L (21-32) Anion Gap 7 (6-14) Blood Urea Nitrogen 6 mg/dL (7-20) L Creatinine 0.7 mg/dL (0.6-1.0) Estimated GFR (Cockcroft-Gault) 84.2 BUN/Creatinine Ratio 9 (6-20) Glucose Level 110 mg/dL (70-99) H Calcium Level 8.6 mg/dL (8.5-10.1) Magnesium Level 1.5 mg/dL (1.8-2.4) L Total Bilirubin 0.4 mg/dL (0.2-1.0) Aspartate Amino Transferase (AST) 21 U/L (15-37) Alanine Aminotransferase (ALT) 35 U/L (14-59) Alkaline Phosphatase 106 U/L (46-116) Total Protein 6.4 g/dL (6.4-8.2) Albumin 2.9 g/dL (3.4-5.0) L Albumin/Globulin Ratio 0.8 (1.0-1.7) L Lipase 48 U/L (73-393) L Laboratory Tests 01/05/18 19:30 Laboratory Tests 01/05/18 19:30 EKG EKG [] Radiology/Procedures Radiology/Procedures [] Impressions: CT of the abdomen and pelvis demonstrates no acute abnormalities. Course & Med Decision Making Course & Med Decision Making Pertinent Labs and Imaging studies reviewed. (See chart for details) [] Dragon Disclaimer Dragon Disclaimer This electronic medical record was generated, in whole or in part, using a voice recognition dictation system. Departure Departure Impression: Primary Impression: Urinary tract infection Additional Impression: Chronic pain Disposition: HOME, SELF-CARE Condition: STABLE Referrals: JAYLA HERNANDEZ (PCP) Patient Instructions: Chronic Pain, Urinary Tract Infection Additional Instructions: Continue taking the antibiotics if are any been prescribed for your urinary tract infection. Follow-up with your primary care provider for ongoing management of your chronic pain. Problem Qualifiers Primary Impression: Urinary tract infection Urinary tract infection type: site unspecified Hematuria presence: without hematuria Qualified Codes: N39.0 - Urinary tract infection, site not specified Additional Impression: Chronic pain Chronic pain type: other chronic pain Qualified Codes: G89.29 - Other chronic pain JOSE LUIS JOHNSON Jr. DO Jan 05, 2018 21:41
[2018-01-05 21:57] VITALS: BP 136/68
== END 2018-01-05 21:58 | disposition home or self-care (01) ==
LOC: ER 18:39
DX: N39.0 Urinary tract infection, site not specified (principal); G89.29 Other chronic pain; R10.30 Lower abdominal pain, unspecified; R11.0 Nausea; M25.512 Pain in left shoulder; M54.6 Pain in thoracic spine; F31.9 Bipolar disorder, unspecified; I10 Essential (primary) hypertension
CPT/HCPCS: 36415; 74177; 80053; 81001; 83690; 83735; 85007; 85025; 96374; 96375; 99285; J0780; J3010; J7030; Q9967

== ENCOUNTER 2018-01-09 03:27 | Emergency (ER) | payer BC ==
[~2018-01-09] VITALS: Ht 157.5 cm; Wt 80.3 kg
[2018-01-09 04:12] LABS: BASO # 0.1 x10^3/uL (0.0-0.2); BASO % 1 % (0-3); EOS # 0.2 x10^3/uL (0.0-0.7); EOS % 2 % (0-3); HEMATOCRIT 35.1 % (36.0-47.0); HEMOGLOBIN 12.3 g/dL (12.0-15.5); LYMPH # 0.9 x10^3/uL (1.0-4.8); LYMPH % 7 % (24-48); MEAN CORPUSCULAR HEMOGLOBIN 31 pg (25-35); MEAN CORPUSCULAR HGB CONC 35 g/dL (31-37); MEAN CORPUSCULAR VOLUME 89 fL (79-100); MONO # 1.2 x10^3/uL (0.0-1.1); MONO % 9 % (0-9); NEUT # 10.9 x10^3uL (1.8-7.7); NEUT % 82 % (31-73); PLATELET COUNT 436 x10^3/uL (140-400); RED BLOOD COUNT 3.95 x10^6/uL (3.50-5.40); RED CELL DISTRIBUTION WIDTH 13.4 % (11.5-14.5); WHITE BLOOD COUNT 13.3 x10^3/uL (4.0-11.0)
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
[2018-01-09] MEDS ORDERED: IV NORMAL SALINE 1000ML BAG 1,000 ML IV ONE (04:15)
[2018-01-09] MEDS ORDERED: fentaNYL PF VIAL 100 MCG/2 ML VIAL IV ONE ×2 (04:15→08:30)
[2018-01-09 04:24] LABS: PROTHROMBIN TIME PATIENT 16.4 SEC (11.7-14.0)
[2018-01-09] MEDS ORDERED: ZIPRASIDONE IM 20 MG VIAL. IM ONE (04:30)
[2018-01-09 05:05] LABS: CALCIUM 9.4 mg/dL (8.5-10.1); CREATININE 0.8 mg/dL (0.6-1.0); GFR 72.2; POTASSIUM 3.1 mmol/L (3.5-5.1)
[2018-01-09 05:11] LABS: ALBUMIN 3.3 g/dL (3.4-5.0); MAGNESIUM 1.9 mg/dL (1.8-2.4); TOTAL BILIRUBIN 0.4 mg/dL (0.2-1.0); TOTAL PROTEIN 6.5 g/dL (6.4-8.2)
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
--- NOTE | 2018-01-09 06:17 | RAD ---
One view chest HISTORY: Pain status post fall Portable upright AP view chest COMPARISON: December 23, 2017 The heart is normal size. The pulmonary vessels appear somewhat full and cephalized. There is hazy opacity left lung base. There is prior fixation of a fracture of the proximal humerus which is ununited. IMPRESSION: Mild left basal infiltrate likely discoid atelectasis. Electronically signed by: Fernandez Chase III, MD (01/09/2018 6:14 AM) [facility] [place]
[2018-01-09 06:35] VITALS: BP 138/64
[2018-01-09] MEDS ORDERED: IOHEXOL 300 MG/ML 100ML VIAL. IV ONE (07:00)
[2018-01-09] MEDS ORDERED: CONTRAST GIVEN. MC PRN (07:00)
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
[2018-01-09] MEDS ORDERED: OXYC10TA PO (08:23)
[2018-01-09] MEDS ORDERED: IBUP-1060 PO (08:23)
[2018-01-09] MEDS ORDERED: POTA20TA82 PO (08:24)
== END 2018-01-09 08:41 | disposition home or self-care (01) ==
LOC: ER 03:27
DX: S42.492A Other displaced fracture of lower end of left humerus, initial encounter for closed fracture (principal); E87.1 Hypo-osmolality and hyponatremia; R45.1 Restlessness and agitation; F31.9 Bipolar disorder, unspecified; I10 Essential (primary) hypertension; W22.8XXA Striking against or struck by other objects, initial encounter; Y93.89 Activity, other specified; Y92.89 Other specified places as the place of occurrence of the external cause; Y99.8 Other external cause status
CPT/HCPCS: 29105; 36415; 70450; 71045; 71260; 72125; 73060; 73090; 73130; 74177; 80053; 82553; 83735; 84484; 85025; 85610; 85730; 96361; 96372; 96374; 96375; 96376; 99285; G0480; J2060; J3010; J3486; J7030; Q9967; 29505

== ENCOUNTER 2018-02-07 17:35 | Emergency (ER) | payer BC ==
[~2018-02-07] VITALS: Ht 157.5 cm; Wt 75.7 kg
[~2018-02-07 17:35] MED LIST changes: +IBUP-1060 PO; +OXYC10TA PO; -POLY255P PO; +POLY255P11 PO; +POTA20TA82 PO
--- NOTE | 2018-02-07 18:29 | EKG ---
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
[2018-02-07] MEDS ORDERED: LORazepam 1 MG TABLET PO ONE (18:45)
[2018-02-07 18:55] LABS: CALCIUM 10.4 mg/dL (8.5-10.1); CREATININE 0.9 mg/dL (0.6-1.0)
[2018-02-07 18:58] LABS: ACETAMIN < 2 mcg/ml (10-30)
[2018-02-07 18:59] LABS: BILIRUBIN,URINE NEGATIVE (NEG); CLARITY,URINE CLEAR; COLOR,URINE YELLOW; NITRITE,URINE NEGATIVE (NEG); PH,URINE 6.5; PROTEIN,URINE NEGATIVE (NEG-TRACE); UROBILINOGEN,URINE 0.2 mg/dL (0.2 mg/dL)
[2018-02-07 19:00] LABS: ALBUMIN 4.6 g/dL (3.4-5.0); ALBUMIN/GLOBULIN RATIO 1.4 (1.0-1.7); MAGNESIUM 1.7 mg/dL (1.8-2.4); TOTAL BILIRUBIN 0.5 mg/dL (0.2-1.0); TOTAL PROTEIN 7.8 g/dL (6.4-8.2)
[2018-02-07 19:04] LABS: AMPHETAMINE/METHAMPHETAMINE NEG (NEG); BARBITURATES NEG (NEG); BENZODIAZEPINES NEG (NEG); CANNABINOIDS NEG (NEG); COCAINE NEG (NEG); METHADONE NEG (NEG); OPIATES NEG (NEG); PHENCYCLIDINE NEG (NEG)
[2018-02-07 19:12] LABS: BASO # 0.2 x10^3/uL (0.0-0.2); BASO % 2 % (0-3); EOS % 0 % (0-3); HEMATOCRIT 39.7 % (36.0-47.0); HEMOGLOBIN 13.6 g/dL (12.0-15.5); LYMPH # 1.7 x10^3/uL (1.0-4.8); LYMPH % 20 % (24-48); MEAN CORPUSCULAR HEMOGLOBIN 31 pg (25-35); MEAN CORPUSCULAR HGB CONC 34 g/dL (31-37); MEAN CORPUSCULAR VOLUME 89 fL (79-100); MONO # 0.5 x10^3/uL (0.0-1.1); MONO % 6 % (0-9); NEUT # 5.8 x10^3uL (1.8-7.7); NEUT % 71 % (31-73); PLATELET COUNT 343 x10^3/uL (140-400); RED BLOOD COUNT 4.45 x10^6/uL (3.50-5.40); WHITE BLOOD COUNT 8.2 x10^3/uL (4.0-11.0)
[2018-02-07 19:13] LABS: BACTERIA,URINE 0 /HPF (0-FEW); RBC,URINE OCC /HPF (0-2); SQUAMOUS EPITHELIAL CELL,UR MOD /LPF; WBC,URINE OCC /HPF (0-4)
[2018-02-07] MEDS ORDERED: cloNIDine HCL 0.1 MG TABLET PO ONE (19:45)
[2018-02-07 20:09] LABS: % LYMPHS 20 % (24-48); % MONOS 4 % (0-10); % SEGS 76 % (35-66); PLT ESTIMATE ADEQUATE (ADEQUATE)
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
[2018-02-07 20:21] VITALS: BP 178/71
== END 2018-02-07 20:27 | disposition home or self-care (01) ==
LOC: ER 17:35
DX: F41.0 Panic disorder [episodic paroxysmal anxiety] (principal); F31.9 Bipolar disorder, unspecified; M79.7 Fibromyalgia; I10 Essential (primary) hypertension
CPT/HCPCS: 36415; 80053; 80307; 80329; 81001; 83735; 85007; 85025; 87086; 93005; 99284; G0480; G6039